=== PATIENT | female | born 1970 | race American Indian/Alaskan Native ===

== ENCOUNTER 2020-10-12 09:26 | Inpatient (IN) | payer BC, MEDICARE ==
--- NOTE | 2020-10-12 09:36 | Emergency Department Report ---
ED Neuro Deficit HPI - General Chief Complaint: Neuro Symptoms/Deficit Stated Complaint: POSS STROKE Time Seen by Provider: 10/12/20 09:30 Source: patient, EMS - History of Present Illness Initial Comments: Patient is 49 years old female with history of CVA with left-sided weakness in 2016. Patient also had history of atrial fibrillation on Eliquis. Patient brought to the emergency room via EMS from home as a code stroke. Patient stated that she woke up normally this morning and her baseline. Patient stated that around 8:30 AM she all of a sudden felt left upper and lower extremity weakness. Patient stated that she is unable to move her left upper extremity and lower extremity. Patient denied any speech problem. Patient stated that her symptoms the same with no improvement. Patient stated that she had stroke in 2016 and she was in a wheelchair for a while and then she was using a walker and now she just using a cane. Upon arrival to the ER stroke alert initiated and patient immediately moved to CT scan for stat CT head without contrast. Stroke telemetry neurology immediately consulted. -: Sudden Location: right arm, left leg Presenting Symptoms: Present: Weak/Paralyzed One Side History of same: Yes Place: home Context: sudden onset Associated Symptoms: denies other symptoms Treatments Prior to Arrival: none - Related Data Allergies/Adverse Reactions: Allergies Allergy/AdvReac Type Severity Reaction Status Date / Time erythromycin base Allergy Anaphylaxis Verified 10/12/20 10:12 Latex, Natural Rubber Allergy Hives Verified 10/12/20 10:12 ED Review of Systems ROS: Stated complaint: POSS STROKE Other details as noted in HPI Comment: All other systems reviewed and negative Constitutional: denies: chills, fever Respiratory: denies: cough, shortness of breath Cardiovascular: denies: chest pain, palpitations Gastrointestinal: denies: abdominal pain, nausea, vomiting Genitourinary: denies: urgency Neurological: weakness, numbness. denies: headache ED Neuro Physical Exam - General Limitations: No Limitations General appearance: alert, in no apparent distress Suspected Stroke: Yes - Head Head exam: Present: atraumatic, normocephalic, normal inspection - Eye Eye exam: Present: normal appearance, PERRL - ENT ENT exam: Present: normal exam, normal orophraynx, mucous membranes moist - Neck Neck exam: Present: normal inspection, full ROM. Absent: tenderness, meningismus - Respiratory Respiratory exam: Present: normal lung sounds bilaterally - Cardiovascular Cardiovascular Exam: Present: bradycardia - GI/Abdominal GI/Abdominal exam: Present: soft, normal bowel sounds. Absent: distended, tenderness, guarding, rebound, rigid, organomegaly, mass, bruit, pulsatile mass - Extremities Exam Extremities exam: Present: normal inspection, full ROM. Absent: tenderness - Back Exam Back exam: Present: normal inspection, full ROM. Absent: CVA tenderness (R), CVA tenderness (L) - Neurological Exam Neurological exam: Present: alert, oriented X3, motor sensory deficit - NIHSS Assessment Interval: Baseline 1a. Level of Consciousness: alert/keenly responsive 1b. LOC Questions: answers both correctly 1c. LOC Commands: performs tasks correctly 2. Best Gaze: normal 3. Visual: no visual loss 4. Facial Palsy: normal symmetrical movement 5b. Motor Arm Right: no drift 5a. Motor Arm Left: no gravity effort 6a. Motor Leg Left: no gravity effort 6b. Motor Leg Right: no drift 7. Limb Ataxia: absent 8. Sensory: normal 9. Best Language: no aphasia 10. Dysarthria: normal 11. Extinction/Inattention: no abnormality Total Score: 6 Stroke Severity: Moderate Stroke - Psychiatric Psychiatric exam: Present: normal mood - Skin Skin exam: Present: warm, intact, normal color ED Course Vital Signs 10/12/20 10/12/20 09:37 10:06 Temperature 98.9 F 98.9 F Pulse Rate 89 88 Respiratory 19 19 Rate Blood Pressure 142/88 142/79 [Right] O2 Sat by Pulse 97 97 Oximetry - Lab Data Result diagrams: 10/12/20 10:16 10/12/20 10:16 Lab Results 10/12/20 10/12/20 10/12/20 Range/Units 10:16 10:16 10:16 WBC 5.0 (4.5-11.0) K/mm3 RBC 4.37 (3.65-5.03) M/mm3 Hgb 12.2 (10.1-14.3) gm/dl Hct 36.6 (30.3-42.9) % MCV 84 (79-97) fl MCH 28 (28-32) pg MCHC 33 (30-34) % RDW 14.0 (13.2-15.2) % Plt Count 425 (140-440) K/mm3 PT 13.9 (12.2-14.9) Sec. INR 1.01 (0.87-1.13) APTT 22.8 L (24.2-36.6) Sec. Thrombin Time 20.0 H (15.1-19.6) Sec. Sodium 140 (137-145) mmol/L Potassium 3.8 (3.6-5.0) mmol/L Chloride 102.9 (98-107) mmol/L Carbon Dioxide 30 (22-30) mmol/L Anion Gap 11 mmol/L BUN 7 (7-17) mg/dL Creatinine 0.7 (0.6-1.2) mg/dL Estimated GFR > 60 ml/min BUN/Creatinine Ratio 10 % Glucose 90 (65-100) mg/dL Calcium 9.5 (8.4-10.2) mg/dL Total Bilirubin (0.1-1.2) mg/dL Direct Bilirubin (0-0.2) mg/dL Indirect Bilirubin mg/dL AST (5-40) units/L ALT (7-56) units/L Alkaline Phosphatase (35-129) units/L Total Creatine Kinase 33 (30-135) units/L CK-MB (CK-2) 1.7 (0.0-4.0) ng/mL CK-MB (CK-2) Rel Index 5.1 H (0-4) Troponin T < 0.010 (0.00-0.029) ng/mL Total Protein (6.3-8.2) g/dL Albumin (3.9-5) g/dL Albumin/Globulin Ratio % 08/18/21 Range/Units 10:16 WBC (4.5-11.0) K/mm3 RBC (3.65-5.03) M/mm3 Hgb (10.1-14.3) gm/dl Hct (30.3-42.9) % MCV (79-97) fl MCH (28-32) pg MCHC (30-34) % RDW (13.2-15.2) % Plt Count (140-440) K/mm3 PT (12.2-14.9) Sec. INR (0.87-1.13) APTT (24.2-36.6) Sec. Thrombin Time (15.1-19.6) Sec. Sodium (137-145) mmol/L Potassium (3.6-5.0) mmol/L Chloride (98-107) mmol/L Carbon Dioxide (22-30) mmol/L Anion Gap mmol/L BUN (7-17) mg/dL Creatinine (0.6-1.2) mg/dL Estimated GFR ml/min BUN/Creatinine Ratio % Glucose (65-100) mg/dL Calcium (8.4-10.2) mg/dL Total Bilirubin 0.90 (0.1-1.2) mg/dL Direct Bilirubin 0.2 (0-0.2) mg/dL Indirect Bilirubin 0.7 mg/dL AST 23 (5-40) units/L ALT 39 (7-56) units/L Alkaline Phosphatase 71 (35-129) units/L Total Creatine Kinase (30-135) units/L CK-MB (CK-2) (0.0-4.0) ng/mL CK-MB (CK-2) Rel Index (0-4) Troponin T (0.00-0.029) ng/mL Total Protein 6.5 (6.3-8.2) g/dL Albumin 3.2 L (3.9-5) g/dL Albumin/Globulin Ratio 1.0 % - EKG Data -: EKG Interpreted by Mt EKG shows normal: sinus rhythm Rate: bradycardia Interpretation: no acute changes - Radiology Data Radiology results: report reviewed - Medical Decision Making Patient is 49 years old female with history of CVA with left-sided weakness in 2016. Patient also had history of atrial fibrillation on Eliquis. Patient brought to the emergency room via EMS from home as a code stroke. Patient stated that she woke up normally this morning and her baseline. Patient stated that around 8:30 AM she all of a sudden felt left upper and lower extremity weakness. Patient stated that she is unable to move her left upper extremity and lower extremity. Patient denied any speech problem. Patient stated that h er symptoms the same with no improvement. Patient stated that she had stroke in 2016 and she was in a wheelchair for a while and then she was using a walker and now she just using a cane. Upon arrival to the ER stroke alert initiated and patient immediately moved to CT scan for stat CT head without contrast. Stroke telemetry neurology immediately consulted. Patient examined by Dr. Alejandre, telemetry neurologist. He indicated that patient is not a TPA candidate. CTA neck and brain showed no evidence of large vessels occlusion to indicate thrombectomy. He advised to admit the patient to hospital for stroke work-up. I discussed the patient with Dr. Martinez, he agreed to admit the patient to medical service for further management. Critical Care Time: Yes Critical care time in (mins) excluding proc time.: 30 Critical care attestation.: If time is entered above; I have spent that time in minutes in the direct care of this critically ill patient, excluding procedure time. ED Disposition Clinical Impression: Acute CVA (cerebrovascular accident) Disposition: 02 SHORT TERM HOSPITAL Is pt being admited?: No Condition: Stable
--- NOTE | 2020-10-12 09:47 | Cat Scan Report ---
CT HEAD WITHOUT CONTRAST INDICATION / CLINICAL INFORMATION: CODE STROKE CALL [phone] . TECHNIQUE: Axial imaging performed from the skull apex through the skull base without the use of cont rast. Sagittal and coronal reformatted images. All CT scans at this location are performed using CT dose reduction for ALARA by means of automated exposure control. COMPARISON: None available. FINDINGS: CEREBRAL PARENCHYMA: No significant abnormality. No acute territorial infarct. HEMORRHAGE: None. EXTRA-AXIAL SPACES: Normal in size and morphology for the patient's age. VENTRICULAR SYSTEM: Normal in size and morphology for the patient's age. MIDLINE SHIFT OR HERNIATION: None. CEREBELLUM / BRAINSTEM: No significant abnormality. CALVARIUM: No significant abnormality. ORBITS: Normal as visualized. PARANASAL SINUSES / MASTOID AIR CELLS: Normal as visualized. SOFT TISSUES of HEAD: No significant abnormality. ADDITIONAL FINDINGS: None. IMPRESSION: No acute intracranial abnormality. CODE STROKE: Time of Communication (LEASING CONSULTANT/CDT): 0842 hours Licensed Practitioner Receiving Report: Dr. Rodriguez Signer Name: Nirav Patterson Jr, MD Signed: 10/12/2020 9:43 AM Workstation Name: [id number]
--- NOTE | 2020-10-12 10:02 | Consultation ---
Physical Examination - Vital Signs Vital Signs: Vital Signs Temp Pulse Resp BP Pulse Ox 98.9 F 89 19 142/88 97 10/12/20 09:37 10/12/20 09:37 10/12/20 09:37 10/12/20 09:37 10/12/20 09:37 Assessment and Plan [facility] Consult Note # Demographics Consult Type: Acute Stroke Level 1 (0-4.5 hrs) Patient Location: Emergency Room First Name: Mayte Last Name: Michael Date of : 1970 Age: 49 Gender: Female Time of Initial Page (): 10/12/2020, 09:31 Time of Return Call (): 10/12/2020, 09:32 # HPI History: 49F reportedly ok when she woke, then not able to feel left side, left numbness and weakness noted. Prior stroke also had left side weakness but she recovered significantly with rehab reportedly. Patient says she has had nightly headache the past couple of nights. COVID diagnosis 2d ago reportedly. # Scores Time of exam and NIHSS (): 10/12/2020, 09:59 Level of Consciousness 1a: [0] = Alert; keenly responsive LOC Questions 1b: [0] = Answers both questions correctly LOC Commands 1c: [0] = Performs both tasks correctly Best Gaze 2: [0] = Normal Visual 3: [0] = No visual loss Facial Palsy 4: [0] = Normal symmetrical movements Motor Arm Left 5a: [3] = No effort against gravity Motor Arm Right 5b: [0] = No drift Motor Leg Left 6a: [3] = No effort against gravity Motor Leg Right 6b: [0] = No drift Limb Ataxia 7: [0] = Absent Sensory 8: [0] = Normal Best Language 9: [0] = No aphasia Dysarthria 10: [0] = Normal Extinction and Inattention 11: [0] = No abnormality NIHSS Total: 6 # PMH-FH-SH Past Medical History: A-fib seizure stroke Medications: NOAC eliquis. # Data Head CT: no bleed preliminarily reviewed by me, please refer to radiology read for official reading CTA Head: no large vessel occlusion preliminarily reviewed by me, please refer to radiology read for official reading # Assessment Impression: Ischemic Stroke (Acute) vs mimic, such as neurologic symptoms associated with COVID, migraine, other. Conversion disorder is a consideration. # Plan Thrombolytic/Intervention: NOT IV Thrombolysis or IA Intervention candidate Thrombolytic Exclusion (< 3 hour window): actively on NOAC Intraarterial Exclusion: no large vessel occlusion (LVO) Imaging: (urgency: routine): MRI Brain without contrast # Logistics Telemedicine: Interactive 2 way audio and visual telecommunication technology was utilized during this visit
--- NOTE | 2020-10-12 10:16 | Cat Scan Report ---
CTA NECK WITH CONTRAST HISTORY: Stroke COMPARISON: None. TECHNIQUE: Routine CTA of the neck is performed. 3-D/MIP reformats were postprocessed. Percentage st enosis is determined by direct quantitative measurements of diseased internal carotid artery diameter compared with normal distal internal carotid artery reference segments or by criteria similar to LUKE CET where applicable. All CT scans at this location are performed using CT dose reduction for ALARA b y means of automated exposure control. CONTRAST: 100 ml of Omnipaque 350 FINDINGS: Aortic arch: No significant abnormality. Cervical vertebral arteries: No significant abnormality. Common carotid arteries: No significant abnormality. Cervical internal carotid arteries: No significant abnormality. Mild tortuosity of the distal ICAs bi laterally is noted. Additional findings: Patchy bilateral subpleural groundglass lung opacities are identified at the bertha g apices. IMPRESSION: Unremarkable CTA of the neck. No evidence for large vessel occlusion or stenosis. Patchy lung infiltrates are identified at the lung apices concerning for atypical pneumonia or viral infection. CTA HEAD WITH CONTRAST HISTORY: Stroke COMPARISON: None. TECHNIQUE: Routine non-contrast CT Head, CTA of the head and post-contrast CT Head are performed. 3-D /MIP reformats postprocessed. All CT scans at this location are performed using CT dose reduction for ALARA by means of automated e xposure control CONTRAST: 100 ml of Omnipaque 350 FINDINGS: CTA Head: Intracranial vertebral arteries: No significant abnormality. Basilar artery: No significant abnormality. Posterior cerebral arteries: No significant abnormality. Intracranial internal carotid arteries: No significant abnormality. Anterior cerebral arteries: No significant abnormality. Middle cerebral arteries: No significant abnormality. Dural venous sinuses:Not optimally opacified. No significant abnormality. Additional findings: Moderate bilateral posterior communicating arteries are noted. IMPRESSION: No evidence for large vessel occlusion, stenosis or aneurysm. Signer Name: Nirav Patterson Jr, MD Signed: 10/12/2020 10:12 AM Workstation Name: [id number]
--- NOTE | 2020-10-12 10:21 | XRay Report ---
CHEST 1 VIEW 10/12/2020 9:16 AM INDICATION / CLINICAL INFORMATION: STROKE/COVID. COMPARISON: None available. FINDINGS: SUPPORT DEVICES: None. HEART / MEDIASTINUM: No significant abnormality. LUNGS / PLEURA: There are mild patchy bilateral pulmonary opacities. No pneumothorax. ADDITIONAL FINDINGS: No significant additional findings. IMPRESSION: 1. Mild patchy bilateral pulmonary opacities likely indicating viral pneumonia. Signer Name: Abdifatah Novak MD Signed: 10/12/2020 10:17 AM Workstation Name: [id number]
[2020-10-12 10:26] LABS: Hematocrit 36.6 % (30.3-42.9); Hemoglobin 12.2 gm/dl (10.1-14.3); Mean Corpuscular HGB Conc 33 % (30-34); Mean Corpuscular Volume 84 fl (79-97); Platelet Count 425 K/mm3 (140-440); Red Blood Count 4.37 M/mm3 (3.65-5.03)
[2020-10-12 10:44] LABS: Creatine Kinase MB 1.7 ng/mL (0.0-4.0)
[2020-10-12 10:46] LABS: Albumin 3.2 g/dL (3.9-5); Bilirubin,Direct 0.2 mg/dL (0-0.2); Blood Urea Nitrogen 7 mg/dL (7-17); Calcium 9.5 mg/dL (8.4-10.2); Hemolysis Index 4
[2020-10-12 10:48] LABS: BUN/Creatinine Ratio 10
[2020-10-12 11:00] LABS: INR 1.01 (0.87-1.13)
[2020-10-12 11:01] LABS: Partial Thromboplastin Time 22.8 Sec. (24.2-36.6)
[2020-10-12] MEDS ORDERED: ONDANSETRON 4 MG/2 ML INJ IV PRN (13:00)
[2020-10-12] MEDS ORDERED: MAGNESIUM HYDROXIDE (MOM) ORAL LIQD UDC PO PRN (13:00)
[2020-10-12] MEDS ORDERED: HYDROmorphone 1 MG/1 ML INJ IV PRN (13:00)
[2020-10-12] MEDS ORDERED: ACETAMINOPHEN 325 MG TAB PO PRN (13:00)
[2020-10-12] MEDS ORDERED: ALBUTEROL 2.5 MG/3 ML NEBU IH PRN (14:00)
[2020-10-12] MEDS ORDERED: PROMETHAZINE 25 MG RECT SUPP PR PRN (14:00)
[2020-10-12] MEDS ORDERED: oxyCODONE /ACETAMINOPHEN 5-325MG TAB PO PRN (14:00)
[2020-10-12] MEDS ORDERED: METOCLOPRAMIDE 10 MG TAB PO PRN (14:00)
--- NOTE | 2020-10-12 15:12 | Vascular Lab Report ---
DUPLEX DOPPLER ULTRASOUND CAROTID, BILATERAL INDICATION / CLINICAL INFORMATION: Stroke. COMPARISON: CTA neck 10/12/2020. FINDINGS: RIGHT CAROTID: No significant atherosclerotic disease. - PLAQUE ESTIMATE (%): < 50% - CCA velocity: 87 cm/sec. - ICA peak systolic velocity: 87 cm/sec. - ICA/CCA PSV Ratio: Less than 2. Right Vertebral Artery: Antegrade flow. LEFT CAROTID: No significant atherosclerotic disease. - PLAQUE ESTIMATE (%): < 50% - CCA velocity: 81 cm/sec. - ICA peak systolic velocity: 72 cm/sec. - ICA/CCA PSV Ratio: Less than 2. Left Vertebral Artery: Antegrade flow. IMPRESSION: 1. Right Internal Carotid Artery: Normal. No stenosis. 2. Left Internal Carotid Artery: Normal. No stenosis. Velocity criteria are extrapolated from diameter data as defined by the Society of Radiologists in [facility] Consensus Conference, Radiology 2003; 229;340-346. NO STENOSIS (NORMAL) - Plaque = none; ICA PSV < 125 cm/sec; ICA/CCA PSV Ratio < 2.0 <50% STENOSIS - Plaque < 50%; ICA PSV < 125 cm/sec; ICA/CCA PSV Ratio < 2.0 50-69% STENOSIS - Plaque > 50%; ICA PSV = 125-230 cm/sec; ICA/CCA PSV Ratio = 2.0-4.0 >70% BUT <100% STENOSIS - Plaque > 50%; ICA PSV > 230 cm/sec; ICA/CCA PSV Ratio > 4.0 NEAR OCCLUSION - Plaque = visible lumen; ICA PSV = high/low/none; ICA/CCA PSV Ratio = variable TOTAL OCCLUSION - Plaque = no lumen; ICA PSV = none; ICA/CCA PSV Ratio = N/A Scribed by: Abbey Cruz RDMS, RVT Scribed: 10/12/2020 1:57 PM I have reviewed the images, agree with this report, and edited this report as needed. Signer Name: Vinh Marquez MD Signed: 10/12/2020 3:07 PM Workstation Name: [id number]
--- NOTE | 2020-10-12 18:34 | History and Physical Report ---
History of Present Illness Date of admission: 10/12/20 12:39 Chief complaint: I cannot move my left side History of present illness: 49 YO Female with CVA with LHP, Atrial Fib on Therapeutic anticoagulation with Eliquis presents to ED for evaluation. Patient reports "I feel weak, left side" . Patient states that she was in her usual state of health at bedtime around 2100 hrs. Patient awoke from sleep at 0830 hrs. and was found to have new onset left arm and leg weakness. Patient states that she was unable to move her left arm and left leg. EMS was notified and upon arrival the patient was found to be in distress and found to have a neurologic deficit. A code stroke was called an d the patient was transported to [facility] for further care and evaluation of the aforementioned symptoms. The patient was seen and evaluated in the emergency department. All lab and imaging studies reviewed. The patient was found to have symptoms consistent with CVA. The patient was placed in observation status and admitted to medical floor due to increased risk of worsening symptoms. Patient initiated on CVA protocol. Patient denies fever, chills, chest pain, palpitation, adductive cough, skin rash, recent ill contacts, or known exposure to COVID-19. No prior admission for review. No medication listed at time of admission for reconciliation. Past History Past Medical History: atrial fib, stroke Past Surgical History: No surgical history, Other (Reviewed) Social history: single. denies: smoking, alcohol abuse Family history: hypertension Medications and Allergies Allergies Allergy/AdvReac Type Severity Reaction Status Date / Time erythromycin base Allergy Anaphylaxis Verified 10/12/20 10:12 Latex, Natural Rubber Allergy Hives Verified 10/12/20 10:12 Home Medications Medication Instructions Recorded Confirmed Last Taken Type Apixaban [Eliquis] 5 mg PO 10/12/20 Unknown History Folic Acid [Folvite] 10/12/20 Unknown History Gabapentin 10/12/20 Unknown History HCTZ 10/12/20 Unknown History PARoxetine [Paxil] 20 mg PO DAILY 10/12/20 10/12/20 Unknown History Topiramate [Topamax] 25 mg PO BID 10/12/20 10/12/20 Unknown History lisinopriL [Lisinopril] 20 mg PO 10/12/20 Unknown History Active Meds: Active Medications Acetaminophen (Acetaminophen 325 Mg Tab) 650 mg PO Q4H PRN PRN Reason: Pain, Mild (1-3) Albuterol (Albuterol 2.5 Mg/3 Ml Nebu) 2.5 mg IH Q3HRT PRN PRN Reason: Shortness Of Breath Aspirin (Aspirin 325 Mg Tab) 325 mg PO QDAY ALVARO Atorvastatin Calcium (Atorvastatin 40 Mg Tab) 40 mg PO QHS ALVARO Bisacodyl (Bisacodyl 10 Mg Rect Supp) 10 mg DE QDAY PRN PRN Reason: Constipation Hydromorphone HCl (Hydromorphone 1 Mg/1 Ml Inj) 0.5 mg IV Q12H PRN PRN Reason: Pain , Severe (7-10) Magnesium Hydroxide (Magnesium Hydroxide (Mom) Oral Liqd Udc) 30 ml PO Q4H PRN PRN Reason: Constipation Metoclopramide HCl (Metoclopramide 10 Mg Tab) 10 mg PO Q6H PRN PRN Reason: Nausea And Vomiting Ondansetron HCl (Ondansetron 4 Mg/2 Ml Inj) 4 mg IV Q8H PRN PRN Reason: Nausea And Vomiting Oxycodone/Acetaminophen (Oxycodone /Acetaminophen 5-325mg Tab) 1 tab PO Q12H PRN PRN Reason: Pain, Moderate (4-6) Last Admin: 10/12/20 14:08 Dose: 1 tab Documented by: Promethazine HCl (Promethazine 25 Mg Rect Supp) 25 mg DE Q6H PRN PRN Reason: Nausea And Vomiting Sodium Chloride (Sodium Chloride 0.9% 10 Ml Flush Syringe) 10 ml IV PRN PRN PRN Reason: LINE FLUSH Review of Systems Constitutional: no weight loss, no weight gain, no fever, no chills Ears, nose, mouth and throat: no ear pain, no ear discharge, no tinnitis, no decreased hearing Breasts: no change in shape, no swelling Cardiovascular: no chest pain, no orthopnea, no palpitations, no edema, no syncope Respiratory: no cough, no excessive sputum, no shortness of breath, no dyspnea on exertion Gastrointestinal: no abdominal pain, no vomiting, no constipation, no hematemesis Genitourinary Female: no pelvic pain, no flank pain, no dysuria, no urinary frequency, no urgency Rectal: no pain, no incontinence, no bleeding Musculoskeletal: no neck stiffness, no neck pain Integumentary: no rash, no pruritis, no sores, no wounds, no jaundice Neurological: weakness, balance difficulties, gait dysfunction, motor disturbance, no numbness, no seizures, no syncope, no convulsions Psychiatric: no anxiety, no memory loss, no change in sleep habits, no insomnia, no change in libido, no suicidal ideation Endocrine: no cold intolerance, no heat intolerance, no polyphagia, no excessive thirst, no polydipsia, no polyuria, no excessive sweating Hematologic/Lymphatic: no easy bruising, no easy bleeding, no lymphadenopathy, no lymphedema Allergic/Immunologic: no urticaria, no allergic rhinitis, no persistent infections, no anaphylaxis Exam - Constitutional Vitals: Temp Pulse Resp BP Pulse Ox 98.4 F 65 19 148/88 99 10/12/20 13:21 10/12/20 14:31 10/12/20 14:31 10/12/20 14:31 10/12/20 14:31 General appearance: Present: mild distress - EENT Eyes: Present: PERRL ENT: hearing intact, clear oral mucosa - Neck Neck: Present: supple, normal ROM - Respiratory Respiratory effort: normal Respiratory: bilateral: CTA - Cardiovascular Heart Sounds: Present: S1 & S2. Absent: rub, click - Extremities Extremities: pulses symmetrical, No edema Peripheral Pulses: within normal limits - Abdominal General gastrointestinal: Present: soft, non-tender, non-distended, normal bowel sounds Female genitourinary: Present: normal - Integumentary Integumentary: Present: clear, warm, dry - Musculoskeletal Musculoskeletal: left sided weakness - Psychiatric Psychiatric: appropriate mood/affect, intact judgment & insight - Neurologic Neurologic: CNII-XII intact, focal deficits, moves all extremities, no gait normal HEART Score - HEART Score Troponin: Troponin T < 0.010 ng/mL (0.00-0.029) 10/12/20 10:16 Results - Labs CBC & Chem 7: 10/12/20 10:16 10/12/20 10:16 Labs: Abnormal lab results 10/12/20 10/12/20 10/12/20 Range/Units 10:16 10:16 10:16 APTT 22.8 L (24.2-36.6) Sec. Thrombin Time 20.0 H (15.1-19.6) Sec. CK-MB (CK-2) Rel Index 5.1 H (0-4) Albumin 3.2 L (3.9-5) g/dL Assessment and Plan - Patient Problems (1) Acute CVA (cerebrovascular accident) Current Visit: Yes Status: Acute Plan to address problem: CVA protocol: CT head, neuro check, seizure precaution, aspiration precautions, physical therapy consulted, Occupational Therapy consulted, speech therapy consulted, carotid Doppler, echocardiogram, telemetry neurology consulted, antiplatelet therapy, lipid panel, statin therapy. (2) Atrial fibrillation Current Visit: Yes Status: Acute Qualifiers: Atrial fibrillation type: longstanding persistent Qualified Code(s): I48.11 - Longstanding persistent atrial fibrillation Plan to address problem: Continue therapeutic anticoagulation, supportive care. (3) DVT prophylaxis Current Visit: Yes Status: Acute Plan to address problem: SCD to bilateral lower extremities while in bed, continue therapeutic anticoagulation.
[2020-10-12 18:55] LABS: RBC Morphology Normal; Total Cells Counted 100
[2020-10-12] MEDS: TOPIRAMATE TAB 25 MG TAB PO SCH (21:42)
[2020-10-12] MEDS: APIXABAN 5 MG TAB PO SCH (21:42)
--- NOTE | 2020-10-13 09:52 | Electrocardiograph Report ---
[facility] Test Date: 2020-10-12 Test Time: 10:50:51 Pat Name: THOMAS TURCIOS Department: ED Room: [facility] Gender: F Barrel Planer: [id number] : 1970 Requested By: WILBUR JJ Order Number: [id number] Reading MD: Clemente Montalvo Measurements Intervals [place] Rate: 49 P: 52 IN: 146 QRS: 46 QRSD: 88 T: 29 QT: 489 QTc: 441 Interpretive Statements Sinus bradycardia Consider left ventricular hypertrophy NSSTT'S No previous ECG available for comparison Electronically Signed On 10-13-2020 9:52:36 EDT by Clemente Montalvo
[2020-10-13] MEDS ORDERED: NON-FORMULARY EACH (Apixaban 5 MG Tablet) PO SCH (10:00)
[2020-10-13] MEDS: APIXABAN 5 MG TAB PO SCH ×2 (10:02→22:06)
[2020-10-13] MEDS: ASPIRIN 325 MG TAB PO SCH (10:02)
[2020-10-13] MEDS: PARoxetine 20 MG TAB PO SCH (10:24)
[2020-10-13] MEDS: TOPIRAMATE TAB 25 MG TAB PO SCH ×2 (11:21→22:07)
--- NOTE | 2020-10-13 14:16 | Progress Note ---
Assessment and Plan Assessment and plan: --COVID-19 positive Current Visit: Yes Status: Acute Contact and droplet isolation Inflammatory markers Home O2 evaluation ID consult Patient has no hypoxia No indication for remdesivir or steroids Closely monitor -- Acute CVA (cerebrovascular accident) left-sided hemiparesis Current Visit: Yes Status: Acute Not a candidate for TPA Aspirin and statin, extensive neuro work-up reviewed as below Physical therapy, Occupational Therapy, speech therapy Rehabilitation Neurology consulted Neuro work-up so far: CT head without contrast; no acute intracranial abnormality noted CTA head; no evidence of large vessel occlusion stenosis or aneurysm MRI brain; numerous scattered punctate foci of acute infarctions predominantly throughout the right MCA territory right MCA territory CTA neck; unremarkable CTA neck no evidence of large vessel occlusion or stenosis patchy lung infiltrates concerning for atypical pneumonia Carotid Doppler; no hemodynamically significant stenosis Echocardiogram; LV EF: 65 to 70%, No left ventricular thrombus, No VSD, No PFO 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 fib, already on Eliquis Cardiology, neurology following --History of CVA in 2015; with residual left-sided weakness Current Visit: Yes Status: Chronic Continue supportive care, PT OT rehab --Hypertension Current Visit: Yes Status: Chronic Moderate control, continue current antihypertensives and as needed medications --Peripheral neuropathy Current Visit: Yes Status: Chronic Gabapentin and supportive care --History of atrial fibrillation Current Visit: Yes Status: Acute Continue therapeutic anticoagulation, beta-blockers supportive care. --DVT prophylaxis Current Visit: Yes Status: Acute SCD to bilateral lower extremities while in bed, Continue Eliquis Closely monitor patient and adjust management as needed Consults and recommendations noted and appreciated We will closely monitor the patient and adjust management as needed 10/13/2020; Acute CVA with left-sided hemiparesis Positive COVID-19 Continue management per protocols Patient is afebrile, already on Eliquis Follow neuro, ID, cardiology evaluation and recommendations History Interval history: I have seen and examined the patient at the bedside Patient's chart and medications reviewed Patient was admitted with left-sided weakness Stroke protocol initiated Not a candidate for TPA Extensive neuro work-up done Vital signs noted Hospitalist Physical - Constitutional Vitals: Temp Pulse Resp BP Pulse Ox 98.9 F 52 L 20 127/71 97 10/12/20 18:38 10/13/20 06:01 10/13/20 06:01 10/13/20 06:01 10/13/20 06:01 General appearance: Present: mild distress, well-nourished, other (Alert and awake responding appropriately) - EENT Eyes: Present: PERRL, EOM intact - Neck Neck: Present: supple, normal ROM - Respiratory Respiratory effort: normal Respiratory: bilateral: diminished, negative: rales, rhonchi, wheezing - Cardiovascular Rhythm: regular Heart Sounds: Present: S1 & S2 - Extremities Extremities: no ischemia, No edema - Abdominal General gastrointestinal: soft, non-tender, non-distended, normal bowel sounds - Integumentary Integumentary: Present: clear, warm - Psychiatric Psychiatric: appropriate mood/affect, cooperative - Neurologic Neurologic: other (Left-sided weakness) HEART Score - HEART Score Troponin: Troponin T < 0.010 ng/mL (0.00-0.029) 10/12/20 10:16 Results - Labs CBC & Chem 7: 10/12/20 10:16 10/12/20 10:16 Labs: Laboratory Last Values WBC 5.0 K/mm3 (4.5-11.0) 10/12/20 10:16 RBC 4.37 M/mm3 (3.65-5.03) 10/12/20 10:16 Hgb 12.2 gm/dl (10.1-14.3) 10/12/20 10:16 Hct 36.6 % (30.3-42.9) 10/12/20 10:16 MCV 84 fl (79-97) 10/12/20 10:16 MCH 28 pg (28-32) 10/12/20 10:16 MCHC 33 % (30-34) 10/12/20 10:16 RDW 14.0 % (13.2-15.2) 10/12/20 10:16 Plt Count 425 K/mm3 (140-440) 10/12/20 10:16 Add Manual Diff Complete 10/12/20 10:16 Total Counted 100 10/12/20 10:16 Seg Neuts % (Manual) 66.0 % (40.0-70.0) 10/12/20 10:16 Lymphocytes % (Manual) 21.0 % (13.4-35.0) 10/12/20 10:16 Monocytes % (Manual) 10.0 % (0.0-7.3) H 10/12/20 10:16 Eosinophils % (Manual) 2.0 % (0.0-4.3) 10/12/20 10:16 Basophils % (Manual) 1.0 % (0.0-1.8) 10/12/20 10:16 Nucleated RBC % Not Reportable 10/12/20 10:16 Seg Neutrophils # Man 3.3 K/mm3 (1.8-7.7) 10/12/20 10:16 Band Neutrophils # 0.0 K/mm3 10/12/20 10:16 Lymphocytes # (Manual) 1.1 K/mm3 (1.2-5.4) L 10/12/20 10:16 Abs React Lymphs (Man) 0.0 K/mm3 10/12/20 10:16 Monocytes # (Manual) 0.5 K/mm3 (0.0-0.8) 10/12/20 10:16 Eosinophils # (Manual) 0.1 K/mm3 (0.0-0.4) 10/12/20 10:16 Basophils # (Manual) 0.1 K/mm3 (0.0-0.1) 10/12/20 10:16 Metamyelocytes # 0.0 K/mm3 10/12/20 10:16 Myelocytes # 0.0 K/mm3 10/12/20 10:16 Promyelocytes # 0.0 K/mm3 10/12/20 10:16 Blast Cells # 0.0 K/mm3 10/12/20 10:16 WBC Morphology Not Reportable 10/12/20 10:16 Hypersegmented Neuts Not Reportable 10/12/20 10:16 Hyposegmented Neuts Not Reportable 10/12/20 10:16 Hypogranular Neuts Not Reportable 10/12/20 10:16 Smudge Cells Not Reportable 10/12/20 10:16 Toxic Granulation Not Reportable 10/12/20 10:16 Toxic Vacuolation Not Reportable 10/12/20 10:16 Dohle Bodies Not Reportable 10/12/20 10:16 Pelger-Huet Anomaly Not Reportable 10/12/20 10:16 Rafita Rods Not Reportable 10/12/20 10:16 Platelet Estimate Not Reportable 10/12/20 10:16 Clumped Platelets Not Reportable 10/12/20 10:16 Plt Clumps, EDTA Not Reportable 10/12/20 10:16 Large Platelets Not Reportable 10/12/20 10:16 Giant Platelets Not Reportable 10/12/20 10:16 Platelet Satelliting Not Reportable 10/12/20 10:16 Plt Morphology Comment Not Reportable 10/12/20 10:16 RBC Morphology Normal 10/12/20 10:16 Dimorphic RBCs Not Reportable 10/12/20 10:16 Polychromasia Not Reportable 10/12/20 10:16 Hypochromasia Not Reportable 10/12/20 10:16 Poikilocytosis Not Reportable 10/12/20 10:16 Anisocytosis Not Reportable 10/12/20 10:16 Microcytosis Not Reportable 10/12/20 10:16 Macrocytosis Not Reportable 10/12/20 10:16 Spherocytes Not Reportable 10/12/20 10:16 Pappenheimer Bodies Not Reportable 10/12/20 10:16 Sickle Cells Not Reportable 10/12/20 10:16 Target Cells Not Reportable 10/12/20 10:16 Tear Drop Cells Not Reportable 10/12/20 10:16 Ovalocytes Not Reportable 10/12/20 10:16 Helmet Cells Not Reportable 10/12/20 10:[address] Bodies Not Reportable 10/12/20 10:16 Vancleave Rings Not Reportable 10/12/20 10:16 Sinai Cells Not Reportable 10/12/20 10:16 Bite Cells Not Reportable 10/12/20 10:16 Crenated Cell Not Reportable 10/12/20 10:16 Elliptocytes Not Reportable 10/12/20 10:16 Acanthocytes (Spur) Not Reportable 10/12/20 10:16 Rouleaux Not Reportable 10/12/20 10:16 Hemoglobin C Crystals Not Reportable 10/12/20 10:16 Schistocytes Not Reportable 10/12/20 10:16 Malaria parasites Not Reportable 10/12/20 10:16 Ernie Bodies Not Reportable 10/12/20 10:16 Hem Pathologist Commnt No 10/12/20 10:16 PT 13.9 Sec. (12.2-14.9) 10/12/20 10:16 INR 1.01 (0.87-1.13) 10/12/20 10:16 APTT 22.8 Sec. (24.2-36.6) L 10/12/20 10:16 Thrombin Time 20.0 Sec. (15.1-19.6) H 10/12/20 10:16 Sodium 140 mmol/L (137-145) 10/12/20 10:16 Potassium 3.8 mmol/L (3.6-5.0) 10/12/20 10:16 Chloride 102.9 mmol/L (98-107) 10/12/20 10:16 Carbon Dioxide 30 mmol/L (22-30) 10/12/20 10:16 Anion Gap 11 mmol/L 10/12/20 10:16 BUN 7 mg/dL (7-17) 10/12/20 10:16 Creatinine 0.7 mg/dL (0.6-1.2) 10/12/20 10:16 Estimated GFR > 60 ml/min 10/12/20 10:16 BUN/Creatinine Ratio 10 % 10/12/20 10:16 Glucose 90 mg/dL (65-100) 10/12/20 10:16 Calcium 9.5 mg/dL (8.4-10.2) 10/12/20 10:16 Total Bilirubin 0.90 mg/dL (0.1-1.2) 10/12/20 10:16 Direct Bilirubin 0.2 mg/dL (0-0.2) 10/12/20 10:16 Indirect Bilirubin 0.7 mg/dL 10/12/20 10:16 AST 23 units/L (5-40) 10/12/20 10:16 ALT 39 units/L (7-56) 10/12/20 10:16 Alkaline Phosphatase 71 units/L (35-129) 10/12/20 10:16 Total Creatine Kinase 33 units/L (30-135) 10/12/20 10:16 CK-MB (CK-2) 1.7 ng/mL (0.0-4.0) 10/12/20 10:16 CK-MB (CK-2) Rel Index 5.1 (0-4) H 10/12/20 10:16 Troponin T < 0.010 ng/mL (0.00-0.029) 10/12/20 10:16 Total Protein 6.5 g/dL (6.3-8.2) 10/12/20 10:16 Albumin 3.2 g/dL (3.9-5) L 10/12/20 10:16 Albumin/Globulin Ratio 1.0 % 10/12/20 10:16 Active Medications - Current Medications Current Medications: Generic Name Dose Route Start Last Admin Trade Name Freq PRN Reason Stop Dose Admin Acetaminophen 650 mg 10/12/20 13:00 Acetaminophen 325 Mg Tab PO Q4H PRN Pain, Mild (1-3) Albuterol 2.5 mg 10/12/20 14:00 Albuterol 2.5 Mg/3 Ml Nebu IH Q3HRT PRN Shortness Of Breath Apixaban 5 mg 10/12/20 22:00 10/13/20 10:02 Apixaban 5 Mg Tab PO 5 mg Q12HR ALVARO Administration Aspirin 325 mg 10/13/20 10:00 10/13/20 10:02 Aspirin 325 Mg Tab PO 325 mg QDAY ALVARO Administration Atorvastatin Calcium 40 mg 10/12/20 22:00 10/12/20 21:41 Atorvastatin 40 Mg Tab PO Not Given QHS ALVARO Bisacodyl 10 mg 10/12/20 14:00 Bisacodyl 10 Mg Rect Supp NM QDAY PRN Constipation Hydromorphone HCl 0.5 mg 10/12/20 13:00 Hydromorphone 1 Mg/1 Ml Inj IV Q12H PRN Pain , Severe (7-10) Magnesium Hydroxide 30 ml 10/12/20 13:00 Magnesium Hydroxide (Mom) Oral Liqd Udc PO Q4H PRN Constipation Metoclopramide HCl 10 mg 10/12/20 14:00 Metoclopramide 10 Mg Tab PO Q6H PRN Nausea And Vomiting Ondansetron HCl 4 mg 10/12/20 13:00 Ondansetron 4 Mg/2 Ml Inj IV Q8H PRN Nausea And Vomiting Oxycodone/Acetaminophen 1 tab 10/12/20 14:00 10/12/20 14:08 Oxycodone /Acetaminophen 5-325mg Tab PO 1 tab Q12H PRN Administration Pain, Moderate (4-6) Paroxetine HCl 20 mg 10/13/20 10:00 10/13/20 10:24 Paroxetine 20 Mg Tab PO 20 mg DAILY ALVARO Administration Promethazine HCl 25 mg 10/12/20 14:00 Promethazine 25 Mg Rect Supp NM Q6H PRN Nausea And Vomiting Sodium Chloride 10 ml 10/12/20 14:40 Sodium Chloride 0.9% 10 Ml Flush Syringe IV PRN PRN LINE FLUSH Topiramate 25 mg 10/12/20 22:00 10/13/20 11:21 Topiramate Tab 25 Mg Tab PO 25 mg BID ALVARO Administration
[2020-10-13 15:29] LABS: Chol/HDL Ratio 4.1 %
--- NOTE | 2020-10-13 17:40 | Magnetic Resonance Report ---
MR brain wo con INDICATION / CLINICAL INFORMATION: Strokelike symptoms/history of A. fib/rule out CVA. TECHNIQUE: Multiplanar, multisequence MR images of the brain were obtained. COMPARISON: October 12, 2020 FINDINGS: INTRACRANIAL: Scattered foci of restricted diffusion predominantly in the cortex of the right frontal lobe, right parietal lobe, right lateral temporal lobe, and in the border zone of the right occipita l/temporal lobe. No hemorrhage. Ventricular caliber is normal. No extra-axial collection. No mass. N o herniation. Major intracranial vascular flow voids are preserved. ORBITS: No significant abnormality of visualized orbits. SINUSES / MASTOIDS: No significant abnormality of visualized sinuses and mastoid air cells. ADDITIONAL FINDINGS: None. IMPRESSION: 1. Numerous scattered punctate foci of acute infarctions predominantly throughout the right MCA maida tory. Signer Name: Alex Carlson MD Signed: 10/13/2020 5:35 PM Workstation Name: [id number]
[2020-10-14] MEDS ORDERED: hydrALAZINE 10 MG TAB PO ONE (05:57)
--- NOTE | 2020-10-14 07:40 | Consultation ---
History of Present Illness Consult date: 10/14/20 Reason for Consult: can not move left side ,Hx of AF supposedly on Eliquis, COVID-19 Positive History of present illness: I cannot move my left side History of present illness: 49 YO Female with CVA X3 times since 2016 with LHP, Atrial Fib on Therapeutic anticoagulation with Eliquis presents to ED for evaluation. she is with compliance problem according to her for at least 4 days did not take her eliquise . Patient reports "I feel weak, left side". Patient states that she was in her usual state of health at bedtime around 2100 hrs. Patient awoke from sleep at 0830 hrs. and was found to have new onset left arm and leg weakness and impaired sensation. EMS was notified and upon arrival a code stroke was called her initial NIH was #6 , All lab and imaging studies reviewed. The patient was found to have symptoms consistent with CVA. The patient was placed in observation status and admitted to medical floor due to increased risk of worsening symptoms. Patient initiated on CVA protocol. Patient denies fever, chills, chest pain, palpitation, adductive cough, skin rash, recent ill contacts, pt. is not felt to be a candidate for tpa nor thrombectomy on admission CT brain and CTA are unremarkable MRI brain yesterday is remarkable for multiple foci of acute/subacute emboli more in right MCA distribution Past History Past Medical History: atrial fib, stroke Past Surgical History: No surgical history, Other (Reviewed) Social history: single. denies: smoking, alcohol abuse Family history: hypertension Medications and Allergies Allergies Allergy/AdvReac Type Severity Reaction Status Date / Time erythromycin base Allergy Anaphylaxis Verified 10/12/20 10:12 Latex, Natural Rubber Allergy Hives Verified 10/12/20 10:12 Home Medications Medication Instructions Recorded Confirmed Last Taken Type Apixaban [Eliquis] 5 mg PO 10/12/20 Unknown History Folic Acid [Folvite] 10/12/20 Unknown History Gabapentin 10/12/20 Unknown History HCTZ 10/12/20 Unknown History PARoxetine [Paxil] 20 mg PO DAILY 10/12/20 10/12/20 Unknown History Topiramate [Topamax] 25 mg PO BID 10/12/20 10/12/20 Unknown History lisinopriL [Lisinopril] 20 mg PO 10/12/20 Unknown History Active Meds: Active Medications Acetaminophen (Acetaminophen 325 Mg Tab) 650 mg PO Q4H PRN PRN Reason: Pain, Mild (1-3) Albuterol (Albuterol 2.5 Mg/3 Ml Nebu) 2.5 mg IH Q3HRT PRN PRN Reason: Shortness Of Breath Aspirin (Aspirin 325 Mg Tab) 325 mg PO QDAY ALVARO Atorvastatin Calcium (Atorvastatin 40 Mg Tab) 40 mg PO QHS ALVARO Bisacodyl (Bisacodyl 10 Mg Rect Supp) 10 mg AR QDAY PRN PRN Reason: Constipation Hydromorphone HCl (Hydromorphone 1 Mg/1 Ml Inj) 0.5 mg IV Q12H PRN PRN Reason: Pain , Severe (7-10) Magnesium Hydroxide (Magnesium Hydroxide (Mom) Oral Liqd Udc) 30 ml PO Q4H PRN PRN Reason: Constipation Metoclopramide HCl (Metoclopramide 10 Mg Tab) 10 mg PO Q6H PRN PRN Reason: Nausea And Vomiting Ondansetron HCl (Ondansetron 4 Mg/2 Ml Inj) 4 mg IV Q8H PRN PRN Reason: Nausea And Vomiting Oxycodone/Acetaminophen (Oxycodone /Acetaminophen 5-325mg Tab) 1 tab PO Q12H PRN PRN Reason: Pain, Moderate (4-6) Last Admin: 10/12/20 14:08 Dose: 1 tab Documented by: Promethazine HCl (Promethazine 25 Mg Rect Supp) 25 mg AR Q6H PRN PRN Reason: Nausea And Vomiting Sodium Chloride (Sodium Chloride 0.9% 10 Ml Flush Syringe) 10 ml IV PRN PRN PRN Reason: LINE FLUSH Review of Systems Constitutional: no weight loss, no weight gain, no fever, no chills Ears, nose, mouth and throat: no ear pain, no ear discharge, no tinnitis, no decreased hearing Breasts: no change in shape, no swelling Cardiovascular: no chest pain, no orthopnea, no palpitations, no edema, no syncope Respiratory: no cough, no excessive sputum, no shortness of breath, no dyspnea on exertion Gastrointestinal: no abdominal pain, no vomiting, no constipation, no hematemesis Genitourinary Female: no pelvic pain, no flank pain, no dysuria, no urinary frequency, no urgency Rectal: no pain, no incontinence, no bleeding Musculoskeletal: no neck stiffness, no neck pain Integumentary: no rash, no pruritis, no sores, no wounds, no jaundice Neurological: weakness, balance difficulties, gait dysfunction, motor disturbance, no numbness, no seizures, no syncope, no convulsions Psychiatric: no anxiety, no memory loss, no change in sleep habits, no insomnia, no change in libido, no suicidal ideation Endocrine: no cold intolerance, no heat intolerance, no polyphagia, no excessive thirst, no polydipsia, no polyuria, no excessive sweating Hematologic/Lymphatic: no easy bruising, no easy bleeding, no lymphadenopathy, no lymphedema Allergic/Immunologic: no urticaria, no allergic rhinitis, no persistent infe ctions, no anaphylaxis Past History Past Medical History: atrial fib, stroke Past Surgical History: No surgical history, Other (Reviewed) Social history: single. denies: smoking, alcohol abuse Family history: hypertension Medications and Allergies Allergies Allergy/AdvReac Type Severity Reaction Status Date / Time erythromycin base Allergy Anaphylaxis Verified 10/12/20 10:12 Latex, Natural Rubber Allergy Hives Verified 10/12/20 10:12 Home Medications Medication Instructions Recorded Confirmed Last Taken Type Apixaban [Eliquis] 5 mg PO 10/12/20 Unknown History Folic Acid [Folvite] 10/12/20 Unknown History Gabapentin 10/12/20 Unknown History HCTZ 10/12/20 Unknown History PARoxetine [Paxil] 20 mg PO DAILY 10/12/20 10/12/20 Unknown History Topiramate [Topamax] 25 mg PO BID 10/12/20 10/12/20 Unknown History lisinopriL [Lisinopril] 20 mg PO 10/12/20 Unknown History Active Meds: Active Medications Acetaminophen (Acetaminophen 325 Mg Tab) 650 mg PO Q4H PRN PRN Reason: Pain, Mild (1-3) Albuterol (Albuterol 2.5 Mg/3 Ml Nebu) 2.5 mg IH Q3HRT PRN PRN Reason: Shortness Of Breath Apixaban (Apixaban 5 Mg Tab) 5 mg PO Q12HR [facility] Last Admin: 10/13/20 22:06 Dose: 5 mg Documented by: Aspirin (Aspirin 325 Mg Tab) 325 mg PO QDAY [facility] Last Admin: 10/13/20 10:02 Dose: 325 mg Documented by: Atorvastatin Calcium (Atorvastatin 40 Mg Tab) 40 mg PO QHS [facility] Last Admin: 10/13/20 22:07 Dose: Not Given Documented by: Bisacodyl (Bisacodyl 10 Mg Rect Supp) 10 mg AR QDAY PRN PRN Reason: Constipation Hydromorphone HCl (Hydromorphone 1 Mg/1 Ml Inj) 0.5 mg IV Q12H PRN PRN Reason: Pain , Severe (7-10) Magnesium Hydroxide (Magnesium Hydroxide (Mom) Oral Liqd Udc) 30 ml PO Q4H PRN PRN Reason: Constipation Metoclopramide HCl (Metoclopramide 10 Mg Tab) 10 mg PO Q6H PRN PRN Reason: Nausea And Vomiting Ondansetron HCl (Ondansetron 4 Mg/2 Ml Inj) 4 mg IV Q8H PRN PRN Reason: Nausea And Vomiting Oxycodone/Acetaminophen (Oxycodone /Acetaminophen 5-325mg Tab) 1 tab PO Q12H PRN PRN Reason: Pain, Moderate (4-6) Last Admin: 10/12/20 14:08 Dose: 1 tab Documented by: Paroxetine HCl (Paroxetine 20 Mg Tab) 20 mg PO DAILY [facility] Last Admin: 10/13/20 10:24 Dose: 20 mg Documented by: Promethazine HCl (Promethazine 25 Mg Rect Supp) 25 mg AR Q6H PRN PRN Reason: Nausea And Vomiting Sodium Chloride (Sodium Chloride 0.9% 10 Ml Flush Syringe) 10 ml IV PRN PRN PRN Reason: LINE FLUSH Topiramate (Topiramate Tab 25 Mg Tab) 25 mg PO BID [facility] Last Admin: 10/13/20 22:07 Dose: 25 mg Documented by: Physical Examination - Vital Signs Vital Signs: Vital Signs Temp Pulse Resp BP Pulse Ox 98.9 F 89 19 142/88 97 10/12/20 09:37 10/12/20 09:37 10/12/20 09:37 10/12/20 09:37 10/12/20 09:37 - Constitutional General appearance: comfortable - EENT EENT: Present: PERRL, mucous membranes moist - Respiratory Respiratory: Present: chest non-tender, lungs clear, rhonchi - Cardiovascular Cardiovascular: Present: other (AF) Extremities: Present: no peripheral edema bilatateraly, no clubbing, cyanosis - Gastrointestinal Gastrointestinal: Present: normoactive bowel sounds - Integumentary Integumentary: Present: normal - Neurologic Cranial nerve examination: PERRL, EOMI, intact (slight left facial droop,and left facial sensory impairment) Detailed motor examination: other (left upper 3/5 left lower 2/5 ,with decrease sensation left side, reflexes1+, gait not done) - Level of Consciousness 1a. Level of Consciousness: alert/keenly responsive - LOC Questions 1b. LOC Questions: answers both correctly - LOC Command 1c. LOC Commands: performs tasks correctly - Best Gaze 2. Best Gaze: normal - Visual 3. Visual: no visual loss - Facial Palsy 4. Facial Palsy: minor paralysis - Motor Arm 5a. Motor Arm Left: some gravity effort 5b. Motor Arm Right: no drift - Motor Leg 6a. Motor Leg Left: no gravity effort 6b. Motor Leg Right: no drift - Limb Ataxia 7. Limb Ataxia: absent - Sensory 8. Sensory: mild/moderate sensory loss - Best Language 9. Best Language: no aphasia - Dysarthria 10. Dysarthria: normal - Extinction and Inattention 11. Extinction/Inattention: no abnormality - Scoring Total Score: 7 Stroke Severity: Moderate Stroke Results - Laboratory Findings CBC and BMP: 10/12/20 10:16 10/12/20 10:16 Abnormal Lab Findings: Abnormal Labs 10/12/20 10/12/20 10/12/20 10:16 10:16 10:16 Monocytes % (Manual) 10.0 H Lymphocytes # (Manual) 1.1 L APTT 22.8 L Thrombin Time 20.0 H CK-MB (CK-2) Rel Index 5.1 H Albumin HDL Cholesterol Coronavirus (PCR) 10/12/20 10/13/20 10/13/20 10:16 08:48 14:48 Monocytes % (Manual) Lymphocytes # (Manual) APTT Thrombin Time CK-MB (CK-2) Rel Index Albumin 3.2 L HDL Cholesterol 39 L Coronavirus (PCR) Positive A Assessment and Plan Assessment and Plan #this is 49 ys old femal with hx of recurrent CVA since 2016 had total X3 CVA ,she was diagnosed with AF in [place] and started on Eloquis in 2018 -she presented with acute onset of left side weakness and sensory impairment -NIH initially#6 --- today NIH#7 -CT head is unremarkable -CTA brain and neck is unremarkable -echo is with EF#65-70% -MRI brain is remarkable for multiple right emboli in MCA distribution mostly -she forgot to take Eliquis for the last 4 days at least !!! # Atrial fibrillation -Continue therapeutic anticoagulation, - supportive care. -need better compliance with medication -Add ASA 325 mg daily -Lipitor 40 mg daily -LDL#112 # COVID-19 Positive -no hypoxemia -she refused to take COVID-19 # DVT prophylaxis -SCD to bilateral lower extremities while in bed, continue therapeutic anticoagulation. PLAN 1-Eliquis as rx 2- ASA 325 mg daily 3- Lipitor 40 mg daily 4- PT/Rehabilitation 5- Comply with medication 6- she is COVID-19 Positive ,Refused vaccine before will follow as needed
--- NOTE | 2020-10-14 09:47 | Progress Note ---
Assessment and Plan Assessment and Plan Assessment and plan: --COVID-19 positive Current Visit: Yes Status: Acute Contact and droplet isolation Inflammatory markers Home O2 evaluation ID consult Patient has no hypoxia No indication for remdesivir or steroids Closely monitor -- Acute CVA (cerebrovascular accident) left-sided hemiparesis Current Visit: Yes Status: Acute Not a candidate for TPA Aspirin and statin, extensive neuro work-up reviewed as below Physical therapy, Occupational Therapy, speech therapy Rehabilitation Neurology consulted Neuro work-up so far: CT head without contrast; no acute intracranial abnormality noted CTA head; no evidence of large vessel occlusion stenosis or aneurysm MRI brain; numerous scattered punctate foci of acute infarctions predominantly throughout the right MCA territory right MCA territory CTA neck; unremarkable CTA neck no evidence of large vessel occlusion or stenosis patchy lung infiltrates concerning for atypical pneumonia Carotid Doppler; no hemodynamically significant stenosis Echocardiogram; LV EF: 65 to 70%, No left ventricular thrombus, No VSD, No PFO 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 fib, already on Eliquis Cardiology, neurology following --History of CVA in 2016; with residual left-sided weakness Current Visit: Yes Status: Chronic Continue supportive care, PT OT rehab --Hypertension Current Visit: Yes Status: Chronic Moderate control, continue current antihypertensives and as needed medications --Peripheral neuropathy Current Visit: Yes Status: Chronic Gabapentin and supportive care --History of atrial fibrillation Current Visit: Yes Status: Acute Continue therapeutic anticoagulation, beta-blockers supportive care. --DVT prophylaxis Current Visit: Yes Status: Acute SCD to bilateral lower extremities while in bed, Continue Eliquis Closely monitor patient and adjust management as needed Consults and recommendations noted and appreciated We will closely monitor the patient and adjust management as needed Subjective Date of service: 10/14/20 Interval history: 10/13/2020; Acute CVA with left-sided hemiparesis Positive COVID-19 Continue management per protocols Patient is afebrile, already on Eliquis Follow neuro, ID, cardiology evaluation and recommendations History Interval history: I have seen and examined the patient at the bedside Patient's chart and medications reviewed Patient was admitted with left-sided weakness Stroke protocol initiated Not a candidate for TPA Extensive neuro work-up done Vital signs noted Objective - Constitutional Vitals: Vital Signs - 12hr 10/13/20 10/13/20 10/13/20 22:01 22:31 23:31 Temperature Pulse Rate 75 83 66 Respiratory 26 H 24 23 Rate Blood Pressure 130/78 129/70 129/70 O2 Sat by Pulse 96 95 96 Oximetry 10/13/20 10/14/20 10/14/20 23:49 00:01 00:31 Temperature Pulse Rate Respiratory Rate Blood Pressure 129/70 106/49 129/70 O2 Sat by Pulse 96 96 97 Oximetry 10/14/20 10/14/20 10/14/20 00:51 01:01 01:11 Temperature Pulse Rate Respiratory Rate Blood Pressure 129/70 129/70 129/70 O2 Sat by Pulse 97 96 96 Oximetry 10/14/20 10/14/20 10/14/20 01:21 01:31 01:41 Temperature Pulse Rate Respiratory Rate Blood Pressure 129/70 103/60 103/60 O2 Sat by Pulse 95 96 96 Oximetry 10/14/20 10/14/20 10/14/20 01:51 02:01 02:11 Temperature Pulse Rate 72 Respiratory 27 H Rate Blood Pressure 103/60 103/60 103/60 O2 Sat by Pulse 96 95 96 Oximetry 10/14/20 10/14/20 10/14/20 02:21 02:31 02:40 Temperature Pulse Rate 66 67 69 Respiratory 23 23 23 Rate Blood Pressure 103/60 103/60 103/60 O2 Sat by Pulse 96 96 96 Oximetry 10/14/20 10/14/20 10/14/20 03:03 04:27 04:31 Temperature 98.4 F Pulse Rate 62 92 H 115 H Respiratory 20 17 Rate Blood Pressure 126/70 O2 Sat by Pulse 95 95 Oximetry 10/14/20 10/14/20 10/14/20 04:41 04:51 05:01 Temperature Pulse Rate 113 H 115 H 114 H Respiratory 25 H 20 24 Rate Blood Pressure 170/101 O2 Sat by Pulse 96 96 96 Oximetry 10/14/20 10/14/20 10/14/20 05:11 05:21 05:31 Temperature Pulse Rate 115 H 116 H 115 H Respiratory 24 13 19 Rate Blood Pressure 170/101 170/101 170/101 O2 Sat by Pulse 96 94 95 Oximetry 10/14/20 06:49 Temperature Pulse Rate Respiratory Rate Blood Pressure 125/80 O2 Sat by Pulse Oximetry - Labs CBC & Chem 7: 10/12/20 10:16 10/12/20 10:16 Labs: Abnormal lab results 10/13/20 10/13/20 Range/Units 08:48 14:48 HDL Cholesterol 39 L (40-59) mg/dL Coronavirus (PCR) Positive A (Negative) HEART Score - HEART Score Troponin: Troponin T < 0.010 ng/mL (0.00-0.029) 10/12/20 10:16
[2020-10-14] MEDS: TOPIRAMATE TAB 25 MG TAB PO SCH ×2 (09:56→21:16)
[2020-10-14] MEDS: ASPIRIN 325 MG TAB PO SCH (09:56)
[2020-10-14] MEDS: APIXABAN 5 MG TAB PO SCH ×2 (09:56→21:16)
[2020-10-14] MEDS: PARoxetine 20 MG TAB PO SCH (09:57)
[2020-10-15] MEDS: TOPIRAMATE TAB 25 MG TAB PO SCH ×2 (10:40→22:10)
[2020-10-15] MEDS: APIXABAN 5 MG TAB PO SCH ×2 (10:40→22:16)
[2020-10-15] MEDS: ASPIRIN 325 MG TAB PO SCH (10:40)
[2020-10-15] MEDS: PARoxetine 20 MG TAB PO SCH (10:40)
--- NOTE | 2020-10-15 12:33 | Progress Note ---
Assessment and Plan Assessment and Plan #this is 49 ys old femal with hx of recurrent CVA since 2016 had total X3 CVA ,she was diagnosed with AF in [place] and started on Eloquis in 2018 -she presented with acute onset of left side weakness and sensory impairment -NIH initially#6 --- today NIH#7 unchanged -CT head is unremarkable -CTA brain and neck is unremarkable -echo is with EF# 65-70% -MRI brain is remarkable for multiple right emboli in MCA distribution mostly -she forgot to take Eliquis for the last 4 days at least !!!before admission # Atrial fibrillation -Continue therapeutic anticoagulation, - supportive care. -need better compliance with medication -Add ASA 325 mg daily -Lipitor 40 mg daily -LDL#112 ---she insists that her PCP told her she had no cholesterol problem and she does not need medication # COVID-19 Positive -no hypoxemia -she refused to take COVID-19 vaccine # DVT prophylaxis -SCD to bilateral lower extremities while in bed, continue therapeutic anticoagulation. PLAN 1-Eliquis as rx 2- ASA 325 mg daily 3- Lipitor 40 mg daily 4- PT/Rehabilitation 5- Comply with medication 6- she is COVID-19 Positive ,Refused vaccine before will sign off Subjective Date of service: 10/15/20 Principal diagnosis: left side weakness, COVID-19 positive,AF Interval history: status is unchanged complinig of slight pain at left shoulder when try to left left arm up significant weakness left lower> upper she will require Pt/Rehabilitation Objective - Vital Sign Vital Signs - 12hr 10/15/20 05:48 Temperature 98.6 F Pulse Rate 59 L Respiratory 18 Rate Blood Pressure 118/63 O2 Sat by Pulse 98 Oximetry - General Apperance Constitutional: comfortable - EENT EENT: PERRL, mucous membranes moist - Respiratory Respiratory: chest non-tender, lungs clear, rhonchi - Cardiovascular Cardiovascular: other (AF ) Extremities: no peripheral edema bilat, no clubbing, cyanosis - Gastrointestinal Gastrointestinal: normoactive bowel sounds - Integumentary Integumentary: normal - Neurologic Cranial nerve examination: PERRL, EOMI, intact (slight left facial droop no visual deficit ) Speech examination: intact Detailed motor examination: other (left upper 3+/5 ,left lower 1-2/5 planter equivical left , gait not done) Motor examination - right side: 03/01: biceps, triceps, wrist flexion, 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, 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, 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, knee extensors, dorsiflexion, toe extension (EHL), plantarflexion - Laboratory Findings CBC and BMP: 10/12/20 10:16 10/12/20 10:16 Abnormal Lab Findings: Abnormal Labs 10/12/20 10/12/20 10/12/20 10:16 10:16 10:16 Monocytes % (Manual) 10.0 H Lymphocytes # (Manual) 1.1 L APTT 22.8 L Thrombin Time 20.0 H POC Glucose CK-MB (CK-2) Rel Index 5.1 H Albumin HDL Cholesterol Coronavirus (PCR) 10/12/20 10/13/20 10/13/20 10:16 08:48 14:48 Monocytes % (Manual) Lymphocytes # (Manual) APTT Thrombin Time POC Glucose CK-MB (CK-2) Rel Index Albumin 3.2 L HDL Cholesterol 39 L Coronavirus (PCR) Positive A 10/14/20 10/14/20 10/14/20 12:24 16:32 21:51 Monocytes % (Manual) Lymphocytes # (Manual) APTT Thrombin Time POC Glucose 210 H 114 H 111 H CK-MB (CK-2) Rel Index Albumin HDL Cholesterol Coronavirus (PCR) 10/15/20 11:31 Monocytes % (Manual) Lymphocytes # (Manual) APTT Thrombin Time POC Glucose 118 H CK-MB (CK-2) Rel Index Albumin HDL Cholesterol Coronavirus (PCR)
[2020-10-16] MEDS: APIXABAN 5 MG TAB PO SCH ×2 (10:29→23:11)
[2020-10-16] MEDS: TOPIRAMATE TAB 25 MG TAB PO SCH ×2 (10:29→23:11)
[2020-10-16] MEDS: ASPIRIN 325 MG TAB PO SCH (10:29)
[2020-10-16] MEDS: PARoxetine 20 MG TAB PO SCH (10:33)
--- NOTE | 2020-10-16 16:54 | Progress Note ---
Assessment and Plan Assessment and Plan Assessment and plan: --COVID-19 positive Current Visit: Yes Status: Acute Contact and droplet isolation Inflammatory markers Home O2 evaluation ID consult Patient has no hypoxia No indication for remdesivir or steroids Closely monitor -- Acute CVA (cerebrovascular accident) left-sided hemiparesis Current Visit: Yes Status: Acute Not a candidate for TPA Aspirin and statin, extensive neuro work-up reviewed as below Physical therapy, Occupational Therapy, speech therapy Rehabilitation Neurology consulted Neuro work-up so far: CT head without contrast; no acute intracranial abnormality noted CTA head; no evidence of large vessel occlusion stenosis or aneurysm MRI brain; numerous scattered punctate foci of acute infarctions predominantly throughout the right MCA territory right MCA territory CTA neck; unremarkable CTA neck no evidence of large vessel occlusion or stenosis patchy lung infiltrates concerning for atypical pneumonia Carotid Doppler; no hemodynamically significant stenosis Echocardiogram; LV EF: 65 to 70%, No left ventricular thrombus, No VSD, No PFO 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 fib, already on Eliquis Cardiology, neurology following --History of CVA in 2016; with residual left-sided weakness Current Visit: Yes Status: Chronic Continue supportive care, PT OT rehab --Hypertension Current Visit: Yes Status: Chronic Moderate control, continue current antihypertensives and as needed medications --Peripheral neuropathy Current Visit: Yes Status: Chronic Gabapentin and supportive care --History of atrial fibrillation Current Visit: Yes Status: Acute Continue therapeutic anticoagulation, beta-blockers supportive care. --DVT prophylaxis Current Visit: Yes Status: Acute SCD to bilateral lower extremities while in bed, Continue Eliquis Closely monitor patient and adjust management as needed Consults and recommendations noted and appreciated We will closely monitor the patient and adjust management as needed Subjective Date of service: 10/15/20 Principal diagnosis: left side weakness, COVID-19 positive,AF Interval history: 10/13/2020; Acute CVA with left-sided hemiparesis Positive COVID-19 Continue management per protocols Patient is afebrile, already on Eliquis Follow neuro, ID, cardiology evaluation and recommendations History Interval history: I have seen and examined the patient at the bedside Patient's chart and medications reviewed Patient was admitted with left-sided weakness Stroke protocol initiated Not a candidate for TPA Extensive neuro work-up done Vital signs noted Objective - Constitutional Vitals: Vital Signs - 12hr 10/16/20 10/16/2021 05:35 10:30 11:54 Temperature 97.9 F 98.1 F Pulse Rate 49 L 52 L 55 L Respiratory 20 18 18 Rate Blood Pressure 153/84 130/78 133/85 O2 Sat by Pulse 98 98 99 Oximetry 10/16/20 10/16/20 15:11 16:19 Temperature 98.1 F Pulse Rate 63 Respiratory 18 Rate Blood Pressure 135/77 O2 Sat by Pulse 96 98 Oximetry General appearance: Present: no acute distress, well-nourished - EENT Eyes: PERRL, EOM intact ENT: hearing intact, clear oral mucosa Ears: bilateral: normal - Neck Neck: supple, normal ROM - Respiratory Respiratory effort: normal Respiratory: bilateral: CTA - Breasts Breasts: normal - Cardiovascular Rhythm: regular Heart Sounds: Present: S1 & S2. Absent: gallop, rub Extremities: pulses intact, No edema, normal color, Full ROM - Gastrointestinal General gastrointestinal: Present: soft, non-tender, non-distended, normal bowel sounds - Genitourinary Female genitourinary: normal - Integumentary Integumentary: clear, warm, dry - Musculoskeletal Musculoskeletal: 1, strength equal bilaterally - Neurologic Neurologic: moves all extremities - Psychiatric Psychiatric: memory intact, appropriate mood/affect, intact judgment & insight - Labs CBC & Chem 7: 10/12/20 10:16 10/12/20 10:16 HEART Score - HEART Score Troponin: Troponin T < 0.010 ng/mL (0.00-0.029) 10/12/20 10:16
[2020-10-17] MEDS: ASPIRIN 325 MG TAB PO SCH (10:22)
[2020-10-17] MEDS: APIXABAN 5 MG TAB PO SCH ×2 (10:22→23:59)
[2020-10-17] MEDS: PARoxetine 20 MG TAB PO SCH (10:23)
[2020-10-17] MEDS: TOPIRAMATE TAB 25 MG TAB PO SCH ×2 (10:23→23:59)
--- NOTE | 2020-10-17 23:34 | Progress Note ---
Assessment and Plan Assessment and Plan Assessment and plan: --COVID-19 positive Current Visit: Yes Status: Acute Contact and droplet isolation Inflammatory markers Home O2 evaluation ID consult Patient has no hypoxia No indication for remdesivir or steroids Closely monitor -- Acute CVA (cerebrovascular accident) left-sided hemiparesis Current Visit: Yes Status: Acute Not a candidate for TPA Aspirin and statin, extensive neuro work-up reviewed as below Physical therapy, Occupational Therapy, speech therapy Rehabilitation Neurology consulted Neuro work-up so far: CT head without contrast; no acute intracranial abnormality noted CTA head; no evidence of large vessel occlusion stenosis or aneurysm MRI brain; numerous scattered punctate foci of acute infarctions predominantly throughout the right MCA territory right MCA territory CTA neck; unremarkable CTA neck no evidence of large vessel occlusion or stenosis patchy lung infiltrates concerning for atypical pneumonia Carotid Doppler; no hemodynamically significant stenosis Echocardiogram; LV EF: 65 to 70%, No left ventricular thrombus, No VSD, No PFO 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 fib, already on Eliquis Cardiology, neurology following --History of CVA in 2016; with residual left-sided weakness Current Visit: Yes Status: Chronic Continue supportive care, PT OT rehab --Hypertension Current Visit: Yes Status: Chronic Moderate control, continue current antihypertensives and as needed medications --Peripheral neuropathy Current Visit: Yes Status: Chronic Gabapentin and supportive care --History of atrial fibrillation Current Visit: Yes Status: Acute Continue therapeutic anticoagulation, beta-blockers supportive care. --DVT prophylaxis Current Visit: Yes Status: Acute SCD to bilateral lower extremities while in bed, Continue Eliquis Closely monitor patient and adjust management as needed Consults and recommendations noted and appreciated We will closely monitor the patient and adjust management as needed Subjective Date of service: 10/17/20 Principal diagnosis: left side weakness, COVID-19 positive,AF Interval history: 10/13/2020; Acute CVA with left-sided hemiparesis Positive COVID-19 Continue management per protocols Patient is afebrile, already on Eliquis Follow neuro, ID, cardiology evaluation and recommendations History Interval history: I have seen and examined the patient at the bedside Patient's chart and medications reviewed Patient was admitted with left-sided weakness Stroke protocol initiated Not a candidate for TPA Extensive neuro work-up done Vital signs noted Objective - Constitutional Vitals: Vital Signs - 12hr 08/23/21 12:18 Temperature 98.2 F Pulse Rate 68 Respiratory 20 Rate Blood Pressure 115/79 O2 Sat by Pulse 98 Oximetry General appearance: Present: no acute distress, well-nourished - EENT Eyes: PERRL, EOM intact ENT: hearing intact, clear oral mucosa Ears: bilateral: normal - Neck Neck: supple, normal ROM - Respiratory Respiratory effort: normal Respiratory: bilateral: CTA - Breasts Breasts: normal - Cardiovascular Rhythm: regular Heart Sounds: Present: S1 & S2. Absent: gallop, rub Extremities: pulses intact, No edema, normal color, Full ROM - Gastrointestinal General gastrointestinal: Present: soft, non-tender, non-distended, normal bowel sounds - Genitourinary Female genitourinary: normal - Integumentary Integumentary: clear, warm, dry - Musculoskeletal Musculoskeletal: 1, strength equal bilaterally - Neurologic Neurologic: moves all extremities - Psychiatric Psychiatric: memory intact, appropriate mood/affect, intact judgment & insight - Labs CBC & Chem 7: 10/12/20 10:16 10/12/20 10:16 HEART Score - HEART Score Troponin: Troponin T < 0.010 ng/mL (0.00-0.029) 10/12/20 10:16
[2020-10-18] MEDS: PARoxetine 20 MG TAB PO SCH (09:17)
[2020-10-18] MEDS: ASPIRIN 325 MG TAB PO SCH (09:17)
[2020-10-18] MEDS: TOPIRAMATE TAB 25 MG TAB PO SCH ×2 (09:17→22:44)
[2020-10-18] MEDS: APIXABAN 5 MG TAB PO SCH ×2 (09:17→22:44)
--- NOTE | 2020-10-18 10:26 | Progress Note ---
Assessment and Plan Assessment and plan: --COVID-19 positive Current Visit: Yes Status: Acute Contact and droplet isolation Inflammatory markers Home O2 evaluation ID consult Patient has no hypoxia No indication for remdesivir or steroids Closely monitor -- Acute CVA (cerebrovascular accident) left-sided hemiparesis Current Visit: Yes Status: Acute Not a candidate for TPA Aspirin and statin, extensive neuro work-up reviewed as below Physical therapy, Occupational Therapy, speech therapy Rehabilitation Neurology consulted Neuro work-up so far: CT head without contrast; no acute intracranial abnormality noted CTA head; no evidence of large vessel occlusion stenosis or aneurysm MRI brain; numerous scattered punctate foci of acute infarctions predominantly throughout the right MCA territory right MCA territory CTA neck; unremarkable CTA neck no evidence of large vessel occlusion or stenosis patchy lung infiltrates concerning for atypical pneumonia Carotid Doppler; no hemodynamically significant stenosis Echocardiogram; LV EF: 65 to 70%, No left ventricular thrombus, No VSD, No PFO 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 fib, already on Eliquis Cardiology, neurology following --History of CVA in 2016; with residual left-sided weakness Current Visit: Yes Status: Chronic Continue supportive care, PT OT rehab --Hypertension Current Visit: Yes Status: Chronic Moderate control, continue current antihypertensives and as needed medications --Peripheral neuropathy Current Visit: Yes Status: Chronic Gabapentin and supportive care --History of atrial fibrillation Current Visit: Yes Status: Acute Continue therapeutic anticoagulation, beta-blockers supportive care. --DVT prophylaxis Current Visit: Yes Status: Acute SCD to bilateral lower extremities while in bed, Continue Eliquis Closely monitor patient and adjust management as needed Consults and recommendations noted and appreciated We will closely monitor the patient and adjust management as needed Disposition; awaiting rehab placement Will order patton PCR test in preparation for placement Ms. Rodriguez had many questions, I answered all of them Patient did not need any supplemental oxygen However since patient is Covid we will check home O2 evaluation prior to discharge History Interval history: I have seen and examined the patient at the bedside Patient's chart and medications reviewed Strict isolation precautions and COVID-19 protocols observed No new complaints, saturating well on room air Hospitalist Physical - Constitutional Vitals: Temp Pulse Resp BP Pulse Ox 98.4 F 58 L 18 111/63 98 10/17/20 22:28 10/17/20 22:28 10/17/20 22:28 10/17/20 22:28 10/17/20 22:28 General appearance: Present: no acute distress, well-nourished - EENT Eyes: Present: PERRL, EOM intact - Neck Neck: Present: supple, normal ROM - Respiratory Respiratory effort: normal Respiratory: bilateral: diminished, negative: rales, rhonchi, wheezing - Cardiovascular Rhythm: regular Heart Sounds: Present: S1 & S2 - Extremities Extremities: no ischemia, No edema - Abdominal General gastrointestinal: soft, non-tender, non-distended, normal bowel sounds - Integumentary Integumentary: Present: clear, warm - Psychiatric Psychiatric: appropriate mood/affect, cooperative - Neurologic Neurologic: CNII-XII intact, moves all extremities HEART Score - HEART Score Troponin: Troponin T < 0.010 ng/mL (0.00-0.029) 10/12/20 10:16 Results - Labs CBC & Chem 7: 10/12/20 10:16 10/12/20 10:16 Labs: Laboratory Last Values WBC 5.0 K/mm3 (4.5-11.0) 10/12/20 10:16 RBC 4.37 M/mm3 (3.65-5.03) 10/12/20 10:16 Hgb 12.2 gm/dl (10.1-14.3) 10/12/20 10:16 Hct 36.6 % (30.3-42.9) 10/12/20 10:16 MCV 84 fl (79-97) 10/12/20 10:16 MCH 28 pg (28-32) 10/12/20 10:16 MCHC 33 % (30-34) 10/12/20 10:16 RDW 14.0 % (13.2-15.2) 10/12/20 10:16 Plt Count 425 K/mm3 (140-440) 10/12/20 10:16 Add Manual Diff Complete 10/12/20 10:16 Total Counted 100 10/12/20 10:16 Seg Neuts % (Manual) 66.0 % (40.0-70.0) 10/12/20 10:16 Lymphocytes % (Manual) 21.0 % (13.4-35.0) 10/12/20 10:16 Monocytes % (Manual) 10.0 % (0.0-7.3) H 10/12/20 10:16 Eosinophils % (Manual) 2.0 % (0.0-4.3) 10/12/20 10:16 Basophils % (Manual) 1.0 % (0.0-1.8) 10/12/20 10:16 Nucleated RBC % Not Reportable 10/12/20 10:16 Seg Neutrophils # Man 3.3 K/mm3 (1.8-7.7) 10/12/20 10:16 Band Neutrophils # 0.0 K/mm3 10/12/20 10:16 Lymphocytes # (Manual) 1.1 K/mm3 (1.2-5.4) L 10/12/20 10:16 Abs React Lymphs (Man) 0.0 K/mm3 10/12/20 10:16 Monocytes # (Manual) 0.5 K/mm3 (0.0-0.8) 10/12/20 10:16 Eosinophils # (Manual) 0.1 K/mm3 (0.0-0.4) 10/12/20 10:16 Basophils # (Manual) 0.1 K/mm3 (0.0-0.1) 10/12/20 10:16 Metamyelocytes # 0.0 K/mm3 10/12/20 10:16 Myelocytes # 0.0 K/mm3 10/12/20 10:16 Promyelocytes # 0.0 K/mm3 10/12/20 10:16 Blast Cells # 0.0 K/mm3 10/12/20 10:16 WBC Morphology Not Reportable 10/12/20 10:16 Hypersegmented Neuts Not Reportable 10/12/20 10:16 Hyposegmented Neuts Not Reportable 10/12/20 10:16 Hypogranular Neuts Not Reportable 10/12/20 10:16 Smudge Cells Not Reportable 10/12/20 10:16 Toxic Granulation Not Reportable 10/12/20 10:16 Toxic Vacuolation Not Reportable 10/12/20 10:16 Dohle Bodies Not Reportable 10/12/20 10:16 Pelger-Huet Anomaly Not Reportable 10/12/20 10:16 Rafita Rods Not Reportable 10/12/20 10:16 Platelet Estimate Not Reportable 10/12/20 10:16 Clumped Platelets Not Reportable 10/12/20 10:16 Plt Clumps, EDTA Not Reportable 10/12/20 10:16 Large Platelets Not Reportable 10/12/20 10:16 Giant Platelets Not Reportable 10/12/20 10:16 Platelet Satelliting Not Reportable 10/12/20 10:16 Plt Morphology Comment Not Reportable 10/12/20 10:16 RBC Morphology Normal 10/12/20 10:16 Dimorphic RBCs Not Reportable 10/12/20 10:16 Polychromasia Not Reportable 10/12/20 10:16 Hypochromasia Not Reportable 10/12/20 10:16 Poikilocytosis Not Reportable 10/12/20 10:16 Anisocytosis Not Reportable 10/12/20 10:16 Microcytosis Not Reportable 10/12/20 10:16 Macrocytosis Not Reportable 10/12/20 10:16 Spherocytes Not Reportable 10/12/20 10:16 Pappenheimer Bodies Not Reportable 10/12/20 10:16 Sickle Cells Not Reportable 10/12/20 10:16 Target Cells Not Reportable 10/12/20 10:16 Tear Drop Cells Not Reportable 10/12/20 10:16 Ovalocytes Not Reportable 10/12/20 10:16 Helmet Cells Not Reportable 10/12/20 10:16 Goel-Yaak Bodies Not Reportable 10/12/20 10:16 [place] Rings Not Reportable 10/12/20 10:16 Sinai Cells Not Reportable 10/12/20 10:16 Bite Cells Not Reportable 10/12/20 10:16 Crenated Cell Not Reportable 10/12/20 10:16 Elliptocytes Not Reportable 10/12/20 10:16 Acanthocytes (Spur) Not Reportable 10/12/20 10:16 Rouleaux Not Reportable 10/12/20 10:16 Hemoglobin C Crystals Not Reportable 10/12/20 10:16 Schistocytes Not Reportable 10/12/20 10:16 Malaria parasites Not Reportable 10/12/20 10:16 Ernie Bodies Not Reportable 10/12/20 10:16 Hem Pathologist Commnt No 10/12/20 10:16 PT 13.9 Sec. (12.2-14.9) 10/12/20 10:16 INR 1.01 (0.87-1.13) 10/12/20 10:16 APTT 22.8 Sec. (24.2-36.6) L 10/12/20 10:16 Thrombin Time 20.0 Sec. (15.1-19.6) H 10/12/20 10:16 Sodium 140 mmol/L (137-145) 10/12/20 10:16 Potassium 3.8 mmol/L (3.6-5.0) 10/12/20 10:16 Chloride 102.9 mmol/L (98-107) 10/12/20 10:16 Carbon Dioxide 30 mmol/L (22-30) 10/12/20 10:16 Anion Gap 11 mmol/L 10/12/20 10:16 BUN 7 mg/dL (7-17) 10/12/20 10:16 Creatinine 0.7 mg/dL (0.6-1.2) 10/12/20 10:16 Estimated GFR > 60 ml/min 10/12/20 10:16 BUN/Creatinine Ratio 10 % 10/12/20 10:16 Glucose 90 mg/dL (65-100) 10/12/20 10:16 POC Glucose 118 mg/dL (70-105) H 10/15/20 11:31 Calcium 9.5 mg/dL (8.4-10.2) 10/12/20 10:16 Total Bilirubin 0.90 mg/dL (0.1-1.2) 10/12/20 10:16 Direct Bilirubin 0.2 mg/dL (0-0.2) 10/12/20 10:16 Indirect Bilirubin 0.7 mg/dL 10/12/20 10:16 AST 23 units/L (5-40) 10/12/20 10:16 ALT 39 units/L (7-56) 10/12/20 10:16 Alkaline Phosphatase 71 units/L (35-129) 10/12/20 10:16 Total Creatine Kinase 33 units/L (30-135) 10/12/20 10:16 CK-MB (CK-2) 1.7 ng/mL (0.0-4.0) 10/12/20 10:16 CK-MB (CK-2) Rel Index 5.1 (0-4) H 10/12/20 10:16 Troponin T < 0.010 ng/mL (0.00-0.029) 10/12/20 10:16 Total Protein 6.5 g/dL (6.3-8.2) 10/12/20 10:16 Albumin 3.2 g/dL (3.9-5) L 10/12/20 10:16 Albumin/Globulin Ratio 1.0 % 10/12/20 10:16 Triglycerides 129 mg/dL (2-149) 10/13/20 14:48 Cholesterol 160 mg/dL (50-199) 10/13/20 14:48 LDL Cholesterol Direct 112 mg/dL (50-130) 10/13/20 14:48 HDL Cholesterol 39 mg/dL (40-59) L 10/13/20 14:48 Cholesterol/HDL Ratio 4.10 % 10/13/20 14:48 Coronavirus (PCR) Positive (Negative) A 10/13/20 08:48 Chaney/IV: Voiding Method Bedside Commode Active Medications - Current Medications Current Medications: Generic Name Dose Route Start Last Admin Trade Name Freq PRN Reason Stop Dose Admin Acetaminophen 650 mg 10/12/20 13:00 Acetaminophen 325 Mg Tab PO Q4H PRN Pain, Mild (1-3) Albuterol 2.5 mg 10/12/20 14:00 Albuterol 2.5 Mg/3 Ml Nebu IH Q3HRT PRN Shortness Of Breath Apixaban 5 mg 10/12/20 22:00 10/18/20 09:17 Apixaban 5 Mg Tab PO 5 mg Q12HR ALVARO Administration Aspirin 325 mg 10/13/20 10:00 10/18/20 09:17 Aspirin 325 Mg Tab PO 325 mg QDAY ALVARO Administration Atorvastatin Calcium 40 mg 10/12/20 22:00 10/17/20 23:59 Atorvastatin 40 Mg Tab PO 40 mg QHS ALVARO Administration Bisacodyl 10 mg 10/12/20 14:00 Bisacodyl 10 Mg Rect Supp MS QDAY PRN Constipation Hydromorphone HCl 0.5 mg 10/12/20 13:00 Hydromorphone 1 Mg/1 Ml Inj IV Q12H PRN Pain , Severe (7-10) Magnesium Hydroxide 30 ml 10/12/20 13:00 10/15/20 14:27 Magnesium Hydroxide (Mom) Oral Liqd Udc PO 30 ml Q4H PRN Administration Constipation Metoclopramide HCl 10 mg 10/12/20 14:00 Metoclopramide 10 Mg Tab PO Q6H PRN Nausea And Vomiting Ondansetron HCl 4 mg 10/12/20 13:00 Ondansetron 4 Mg/2 Ml Inj IV Q8H PRN Nausea And Vomiting Oxycodone/Acetaminophen 1 tab 10/12/20 14:00 10/12/20 14:08 Oxycodone /Acetaminophen 5-325mg Tab PO 1 tab Q12H PRN Administration Pain, Moderate (4-6) Paroxetine HCl 20 mg 10/13/20 10:00 10/18/20 09:17 Paroxetine 20 Mg Tab PO 20 mg DAILY ALVARO Administration Promethazine HCl 25 mg 10/12/20 14:00 Promethazine 25 Mg Rect Supp MS Q6H PRN Nausea And Vomiting Sodium Chloride 10 ml 10/12/20 14:40 10/18/20 09:17 Sodium Chloride 0.9% 10 Ml Flush Syringe IV 10 ml PRN PRN Administration LINE FLUSH Topiramate 25 mg 10/12/20 22:00 10/18/20 09:17 Topiramate Tab 25 Mg Tab PO 25 mg BID ALVARO Administration Nutrition/Malnutrition Assess - Dietary Evaluation Nutrition/Malnutrition Findings: Nutrition Notes Start: 10/15/20 11:42 Freq: Status: Active Protocol: Document 10/18/20 10:05 (Rec: 10/18/20 10:24 [id number]) Nutrition Notes Initial or Follow up Assessment Current Diagnosis Stroke Current Diet Vegan-like diet, Fish okayCardiac Consistent Caarbohydrate Labs/Tests Reviewed Pertinent Medications Reviewed Height 5 ft 9 in Weight 107.3 kg Usual Body Weight 109.09 kg Perrin Body Weight (kg) 65.90 BMI 34.9 Weight change and time frame Pt with 1.6% wt loss in 1 week . Weight Status Obese Subjective/Other Information Pt reports not eating well for a week [employer]. Pt now eating 100 % of meals. Pt states she never lost her appetite, she was too weak to cook. Pt does not want ONS Percent of energy/protein needs met: 100%/83% Burn Absent Trauma Absent Current % PO Good (75-100%) Minimum of two criteria Yes Energy Intake (severe) < or equal to 50% Estimated Energy Requirement > or equal to 5 days Interpretation of Weight Loss (non- 1-2% in 1 week severe) #1 Nutrition Diagnosis Malnutrition Etiology acute illness As Evidenced by Signs and Symptoms <50 EER in 5 days, 2% wt loss in one week Is patient on ventilator? No Is Patient Ambulatory and/or Out of Bed Yes REE-([place] or-ambulatory/OOB) [ 2284.594 NUTR.[id number]] Kcal/Kg value to use for calculation 16 Approximate Energy Requirements Using 1717 kcal/Kg Calculation Used for Recommendations Kcal/kg Additional Notes Protein: (1.2-1.5g/kg AdjBW: 87 kg) 104-131g Fluid: 1 ml/kcal Nutrition Intervention Change Diet Order: continue Add Supplement/Snack (indicate name/kcal d/c /protein ) Goal #1 Continue to meet at least 75% of protein and energy needs Follow-Up By: 10/25/20 Additional Comments F/u: stable intakes
--- NOTE | 2020-10-18 19:18 | Progress Note ---
Assessment and Plan Assessment and plan: --COVID-19 positive Current Visit: Yes Status: Acute Contact and droplet isolation Inflammatory markers Home O2 evaluation ID consult Patient has no hypoxia No indication for remdesivir or steroids Closely monitor -- Acute CVA (cerebrovascular accident) left-sided hemiparesis Current Visit: Yes Status: Acute Not a candidate for TPA Aspirin and statin, extensive neuro work-up reviewed as below Physical therapy, Occupational Therapy, speech therapy Rehabilitation Neurology consulted Neuro work-up so far: CT head without contrast; no acute intracranial abnormality noted CTA head; no evidence of large vessel occlusion stenosis or aneurysm MRI brain; numerous scattered punctate foci of acute infarctions predominantly throughout the right MCA territory right MCA territory CTA neck; unremarkable CTA neck no evidence of large vessel occlusion or stenosis patchy lung infiltrates concerning for atypical pneumonia Carotid Doppler; no hemodynamically significant stenosis Echocardiogram; LV EF: 65 to 70%, No left ventricular thrombus, No VSD, No PFO 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 fib, already on Eliquis Cardiology, neurology following --History of CVA in 2016; with residual left-sided weakness Current Visit: Yes Status: Chronic Continue supportive care, PT OT rehab --Hypertension Current Visit: Yes Status: Chronic Moderate control, continue current antihypertensives and as needed medications --Peripheral neuropathy Current Visit: Yes Status: Chronic Gabapentin and supportive care --History of atrial fibrillation Current Visit: Yes Status: Acute Continue therapeutic anticoagulation, beta-blockers supportive care. --DVT prophylaxis Current Visit: Yes Status: Acute SCD to bilateral lower extremities while in bed, Continue Eliquis Closely monitor patient and adjust management as needed Consults and recommendations noted and appreciated We will closely monitor the patient and adjust management as needed Disposition; awaiting rehab placement Covid test in preparation for rehab placement done today is positive Ms. Rodriguez had many questions, I answered all of them Patient did not need any supplemental oxygen However since patient is Covid we will check home O2 evaluation prior to discharge 10/19/2020; initially patient wanted to go home with home health However today she decided to go to rehab for PT and OT Pending rehab placement Covid test done today is positive History Interval history: I have seen and examined the patient at the bedside Patient's chart and medications reviewed Patient feels better PT OT recommended rehab placement Patient complains of tiredness and weakness Working with physical therapy today Hospitalist Physical - Constitutional Vitals: Temp Pulse Resp BP Pulse Ox 98.5 F 67 18 140/78 98 10/18/20 16:00 10/18/20 16:00 10/18/20 16:00 10/18/20 16:00 10/18/20 16:00 General appearance: Present: no acute distress, well-nourished - EENT Eyes: Present: PERRL, EOM intact - Neck Neck: Present: supple, normal ROM - Respiratory Respiratory effort: normal Respiratory: bilateral: diminished, negative: rales, rhonchi, wheezing - Cardiovascular Rhythm: regular Heart Sounds: Present: S1 & S2 - Extremities Extremities: no ischemia, No edema - Abdominal General gastrointestinal: soft, non-tender, non-distended, normal bowel sounds - Integumentary Integumentary: Present: clear, warm - Psychiatric Psychiatric: appropriate mood/affect, cooperative - Neurologic Neurologic: moves all extremities (Acute CVA with residual weakness) HEART Score - HEART Score Troponin: Troponin T < 0.010 ng/mL (0.00-0.029) 10/12/20 10:16 Results - Labs CBC & Chem 7: 10/12/20 10:16 10/12/20 10:16 Labs: Laboratory Last Values WBC 5.0 K/mm3 (4.5-11.0) 10/12/20 10:16 RBC 4.37 M/mm3 (3.65-5.03) 10/12/20 10:16 Hgb 12.2 gm/dl (10.1-14.3) 10/12/20 10:16 Hct 36.6 % (30.3-42.9) 10/12/20 10:16 MCV 84 fl (79-97) 10/12/20 10:16 MCH 28 pg (28-32) 10/12/20 10:16 MCHC 33 % (30-34) 10/12/20 10:16 RDW 14.0 % (13.2-15.2) 10/12/20 10:16 Plt Count 425 K/mm3 (140-440) 10/12/20 10:16 Add Manual Diff Complete 10/12/20 10:16 Total Counted 100 10/12/20 10:16 Seg Neuts % (Manual) 66.0 % (40.0-70.0) 10/12/20 10:16 Lymphocytes % (Manual) 21.0 % (13.4-35.0) 10/12/20 10:16 Monocytes % (Manual) 10.0 % (0.0-7.3) H 10/12/20 10:16 Eosinophils % (Manual) 2.0 % (0.0-4.3) 10/12/20 10:16 Basophils % (Manual) 1.0 % (0.0-1.8) 10/12/20 10:16 Nucleated RBC % Not Reportable 10/12/20 10:16 Seg Neutrophils # Man 3.3 K/mm3 (1.8-7.7) 10/12/20 10:16 Band Neutrophils # 0.0 K/mm3 10/12/20 10:16 Lymphocytes # (Manual) 1.1 K/mm3 (1.2-5.4) L 10/12/20 10:16 Abs React Lymphs (Man) 0.0 K/mm3 10/12/20 10:16 Monocytes # (Manual) 0.5 K/mm3 (0.0-0.8) 10/12/20 10:16 Eosinophils # (Manual) 0.1 K/mm3 (0.0-0.4) 10/12/20 10:16 Basophils # (Manual) 0.1 K/mm3 (0.0-0.1) 10/12/20 10:16 Metamyelocytes # 0.0 K/mm3 10/12/20 10:16 Myelocytes # 0.0 K/mm3 10/12/20 10:16 Promyelocytes # 0.0 K/mm3 10/12/20 10:16 Blast Cells # 0.0 K/mm3 10/12/20 10:16 WBC Morphology Not Reportable 10/12/20 10:16 Hypersegmented Neuts Not Reportable 10/12/20 10:16 Hyposegmented Neuts Not Reportable 10/12/20 10:16 Hypogranular Neuts Not Reportable 10/12/20 10:16 Smudge Cells Not Reportable 10/12/20 10:16 Toxic Granulation Not Reportable 10/12/20 10:16 Toxic Vacuolation Not Reportable 10/12/20 10:16 Dohle Bodies Not Reportable 10/12/20 10:16 Pelger-Huet Anomaly Not Reportable 10/12/20 10:16 Rafita Rods Not Reportable 10/12/20 10:16 Platelet Estimate Not Reportable 10/12/20 10:16 Clumped Platelets Not Reportable 10/12/20 10:16 Plt Clumps, EDTA Not Reportable 10/12/20 10:16 Large Platelets Not Reportable 10/12/20 10:16 Giant Platelets Not Reportable 10/12/20 10:16 Platelet Satelliting Not Reportable 10/12/20 10:16 Plt Morphology Comment Not Reportable 10/12/20 10:16 RBC Morphology Normal 10/12/20 10:16 Dimorphic RBCs Not Reportable 10/12/20 10:16 Polychromasia Not Reportable 10/12/20 10:16 Hypochromasia Not Reportable 10/12/20 10:16 Poikilocytosis Not Reportable 10/12/20 10:16 Anisocytosis Not Reportable 10/12/20 10:16 Microcytosis Not Reportable 10/12/20 10:16 Macrocytosis Not Reportable 10/12/20 10:16 Spherocytes Not Reportable 10/12/20 10:16 Pappenheimer Bodies Not Reportable 10/12/20 10:16 Sickle Cells Not Reportable 10/12/20 10:16 Target Cells Not Reportable 10/12/20 10:16 Tear Drop Cells Not Reportable 10/12/20 10:16 Ovalocytes Not Reportable 10/12/20 10:16 Helmet Cells Not Reportable 10/12/20 10:16 Goel-[place] Bodies Not Reportable 10/12/20 10:16 Long Barn Rings Not Reportable 10/12/20 10:16 [place] Cells Not Reportable 10/12/20 10:16 Bite Cells Not Reportable 10/12/20 10:16 Crenated Cell Not Reportable 10/12/20 10:16 Elliptocytes Not Reportable 10/12/20 10:16 Acanthocytes (Spur) Not Reportable 10/12/20 10:16 Rouleaux Not Reportable 10/12/20 10:16 Hemoglobin C Crystals Not Reportable 10/12/20 10:16 Schistocytes Not Reportable 10/12/20 10:16 Malaria parasites Not Reportable 10/12/20 10:16 Ernie Bodies Not Reportable 10/12/20 10:16 Hem Pathologist Commnt No 08/18/21 10:16 PT 13.9 Sec. (12.2-14.9) 10/12/20 10:16 INR 1.01 (0.87-1.13) 10/12/20 10:16 APTT 22.8 Sec. (24.2-36.6) L 10/12/20 10:16 Thrombin Time 20.0 Sec. (15.1-19.6) H 10/12/20 10:16 Sodium 140 mmol/L (137-145) 10/12/20 10:16 Potassium 3.8 mmol/L (3.6-5.0) 10/12/20 10:16 Chloride 102.9 mmol/L (98-107) 10/12/20 10:16 Carbon Dioxide 30 mmol/L (22-30) 10/12/20 10:16 Anion Gap 11 mmol/L 10/12/20 10:16 BUN 7 mg/dL (7-17) 10/12/20 10:16 Creatinine 0.7 mg/dL (0.6-1.2) 10/12/20 10:16 Estimated GFR > 60 ml/min 10/12/20 10:16 BUN/Creatinine Ratio 10 % 10/12/20 10:16 Glucose 90 mg/dL (65-100) 10/12/20 10:16 POC Glucose 118 mg/dL (70-105) H 10/15/20 11:31 Calcium 9.5 mg/dL (8.4-10.2) 10/12/20 10:16 Total Bilirubin 0.90 mg/dL (0.1-1.2) 10/12/20 10:16 Direct Bilirubin 0.2 mg/dL (0-0.2) 10/12/20 10:16 Indirect Bilirubin 0.7 mg/dL 10/12/20 10:16 AST 23 units/L (5-40) 10/12/20 10:16 ALT 39 units/L (7-56) 10/12/20 10:16 Alkaline Phosphatase 71 units/L (35-129) 10/12/20 10:16 Total Creatine Kinase 33 units/L (30-135) 10/12/20 10:16 CK-MB (CK-2) 1.7 ng/mL (0.0-4.0) 10/12/20 10:16 CK-MB (CK-2) Rel Index 5.1 (0-4) H 10/12/20 10:16 Troponin T < 0.010 ng/mL (0.00-0.029) 10/12/20 10:16 Total Protein 6.5 g/dL (6.3-8.2) 10/12/20 10:16 Albumin 3.2 g/dL (3.9-5) L 10/12/20 10:16 Albumin/Globulin Ratio 1.0 % 10/12/20 10:16 Triglycerides 129 mg/dL (2-149) 10/13/20 14:48 Cholesterol 160 mg/dL (50-199) 10/13/20 14:48 LDL Cholesterol Direct 112 mg/dL (50-130) 10/13/20 14:48 HDL Cholesterol 39 mg/dL (40-59) L 10/13/20 14:48 Cholesterol/HDL Ratio 4.10 % 10/13/20 14:48 Coronavirus (PCR) Positive (Negative) A 10/13/20 08:48 Chaney/IV: Voiding Method Bedside Commode Active Medications - Current Medications Current Medications: Generic Name Dose Route Start Last Admin Trade Name Freq PRN Reason Stop Dose Admin Acetaminophen 650 mg 10/12/20 13:00 Acetaminophen 325 Mg Tab PO Q4H PRN Pain, Mild (1-3) Albuterol 2.5 mg 10/12/20 14:00 Albuterol 2.5 Mg/3 Ml Nebu IH Q3HRT PRN Shortness Of Breath Apixaban 5 mg 10/12/20 22:00 10/18/20 09:17 Apixaban 5 Mg Tab PO 5 mg Q12HR ALVARO Administration Aspirin 325 mg 10/13/20 10:00 10/18/20 09:17 Aspirin 325 Mg Tab PO 325 mg QDAY ALVARO Administration Atorvastatin Calcium 40 mg 10/12/20 22:00 10/17/20 23:59 Atorvastatin 40 Mg Tab PO 40 mg QHS ALVARO Administration Bisacodyl 10 mg 10/12/20 14:00 Bisacodyl 10 Mg Rect Supp [place] QDAY PRN Constipation Hydromorphone HCl 0.5 mg 10/12/20 13:00 Hydromorphone 1 Mg/1 Ml Inj IV Q12H PRN Pain , Severe (7-10) Magnesium Hydroxide 30 ml 10/12/20 13:00 10/15/20 14:27 Magnesium Hydroxide (Mom) Oral Liqd Udc PO 30 ml Q4H PRN Administration Constipation Metoclopramide HCl 10 mg 10/12/20 14:00 Metoclopramide 10 Mg Tab PO Q6H PRN Nausea And Vomiting Ondansetron HCl 4 mg 10/12/20 13:00 Ondansetron 4 Mg/2 Ml Inj IV Q8H PRN Nausea And Vomiting Oxycodone/Acetaminophen 1 tab 10/12/20 14:00 10/12/20 14:08 Oxycodone /Acetaminophen 5-325mg Tab PO 1 tab Q12H PRN Administration Pain, Moderate (4-6) Paroxetine HCl 20 mg 10/13/20 10:00 10/18/20 09:17 Paroxetine 20 Mg Tab PO 20 mg DAILY ALVARO Administration Promethazine HCl 25 mg 10/12/20 14:00 Promethazine 25 Mg Rect Supp [place] Q6H PRN Nausea And Vomiting Sodium Chloride 10 ml 10/12/20 14:40 10/18/20 09:17 Sodium Chloride 0.9% 10 Ml Flush Syringe IV 10 ml PRN PRN Administration LINE FLUSH Topiramate 25 mg 10/12/20 22:00 10/18/20 09:17 Topiramate Tab 25 Mg Tab PO 25 mg BID ALVARO Administration Nutrition/Malnutrition Assess - Dietary Evaluation Nutrition/Malnutrition Findings: Nutrition Notes Start: 10/15/20 11:42 Freq: Status: Active Protocol: Document 10/18/20 10:05 (Rec: 10/18/20 10:24 [id number]) Nutrition Notes Initial or Follow up Assessment Current Diagnosis Stroke Current Diet Vegan-like diet, Fish okayCardiac Consistent Caarbohydrate Labs/Tests Reviewed Pertinent Medications Reviewed Height 5 ft 9 in Weight 107.3 kg Usual Body Weight 109.09 kg Dolphin Body Weight (kg) 65.90 BMI 34.9 Weight change and time frame Pt with 1.6% wt loss in 1 week . Weight Status Obese Subjective/Other Information Pt reports not eating well for a week [employer]. Pt now eating 100 % of meals. Pt states she never lost her appetite, she was too weak to cook. Pt does not want ONS Percent of energy/protein needs met: 100%/83% Burn Absent Trauma Absent Current % PO Good (75-100%) Minimum of two criteria Yes Energy Intake (severe) < or equal to 50% Estimated Energy Requirement > or equal to 5 days Interpretation of Weight Loss (non- 1-2% in 1 week severe) #1 Nutrition Diagnosis Malnutrition Etiology acute illness As Evidenced by Signs and Symptoms <50 EER in 5 days, 2% wt loss in one week Is patient on ventilator? No Is Patient Ambulatory and/or Out of Bed Yes REE-([place]-St. Jeor-ambulatory/OOB) [ 2284.594 NUTR.[id number]] Kcal/Kg value to use for calculation 16 Approximate Energy Requirements Using 1717 kcal/Kg Calculation Used for Recommendations Kcal/kg Additional Notes Protein: (1.2-1.5g/kg AdjBW: 87 kg) 104-131g Fluid: 1 ml/kcal Nutrition Intervention Change Diet Order: continue Add Supplement/Snack (indicate name/kcal d/c /protein ) Goal #1 Continue to meet at least 75% of protein and energy needs Follow-Up By: 10/25/20 Additional Comments F/u: stable intakes
[2020-10-18 20:22] LABS: C-Reactive Protein 0.7 mg/dL (0.00-1.30)
[2020-10-19] MEDS: APIXABAN 5 MG TAB PO SCH ×2 (10:38→21:09)
[2020-10-19] MEDS: ASPIRIN 325 MG TAB PO SCH (10:38)
[2020-10-19] MEDS: PARoxetine 20 MG TAB PO SCH (10:39)
[2020-10-19] MEDS: TOPIRAMATE TAB 25 MG TAB PO SCH ×2 (10:41→21:09)
[2020-10-20] MEDS: PARoxetine 20 MG TAB PO SCH (09:17)
[2020-10-20] MEDS: TOPIRAMATE TAB 25 MG TAB PO SCH ×2 (09:17→22:00)
[2020-10-20] MEDS: ASPIRIN 325 MG TAB PO SCH (09:17)
[2020-10-20] MEDS: APIXABAN 5 MG TAB PO SCH ×2 (09:17→22:00)
--- NOTE | 2020-10-20 16:09 | Progress Note ---
Assessment and Plan Assessment and plan: --COVID-19 positive Current Visit: Yes Status: Acute Contact and droplet isolation Inflammatory markers Home O2 evaluation ID consult Patient has no hypoxia No indication for remdesivir or steroids Closely monitor -- Acute CVA (cerebrovascular accident) left-sided hemiparesis Current Visit: Yes Status: Acute Not a candidate for TPA Aspirin and statin, extensive neuro work-up reviewed as below Physical therapy, Occupational Therapy, speech therapy Rehabilitation Neurology consulted Neuro work-up so far: CT head without contrast; no acute intracranial abnormality noted CTA head; no evidence of large vessel occlusion stenosis or aneurysm MRI brain; numerous scattered punctate foci of acute infarctions predominantly throughout the right MCA territory right MCA territory CTA neck; unremarkable CTA neck no evidence of large vessel occlusion or stenosis patchy lung infiltrates concerning for atypical pneumonia Carotid Doppler; no hemodynamically significant stenosis Echocardiogram; LV EF: 65 to 70%, No left ventricular thrombus, No VSD, No PFO 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 fib, already on Eliquis Cardiology, neurology following --History of CVA in 2016; with residual left-sided weakness Current Visit: Yes Status: Chronic Continue supportive care, PT OT rehab --Hypertension Current Visit: Yes Status: Chronic Moderate control, continue current antihypertensives and as needed medications --Peripheral neuropathy Current Visit: Yes Status: Chronic Gabapentin and supportive care --History of atrial fibrillation Current Visit: Yes Status: Acute Continue therapeutic anticoagulation, beta-blockers supportive care. --DVT prophylaxis Current Visit: Yes Status: Acute SCD to bilateral lower extremities while in bed, Continue Eliquis Closely monitor patient and adjust management as needed Consults and recommendations noted and appreciated We will closely monitor the patient and adjust management as needed Disposition; awaiting rehab placement Covid test in preparation for rehab placement done today is positive Ms. Rodriguez had many questions, I answered all of them Patient did not need any supplemental oxygen However since patient is Covid we will check home O2 evaluation prior to discharge 10/19/2020; initially patient wanted to go home with home health However today she decided to go to rehab for PT and OT Pending rehab placement Covid test done today is positive Discharge planning per case management 10/20/2020; PT OT recommended acute rehab placement DC planning per case management Repeat Covid test yesterday 10/19/2020 is positive Results - Labs CBC & Chem 7: 10/12/20 10:16 10/12/20 10:16 Labs: Laboratory Last Values WBC 5.0 K/mm3 (4.5-11.0) 10/12/20 10:16 RBC 4.37 M/mm3 (3.65-5.03) 10/12/20 10:16 Hgb 12.2 gm/dl (10.1-14.3) 10/12/20 10:16 Hct 36.6 % (30.3-42.9) 10/12/20 10:16 MCV 84 fl (79-97) 10/12/20 10:16 MCH 28 pg (28-32) 10/12/20 10:16 MCHC 33 % (30-34) 10/12/20 10:16 RDW 14.0 % (13.2-15.2) 10/12/20 10:16 Plt Count 425 K/mm3 (140-440) 10/12/20 10:16 Add Manual Diff Complete 10/12/20 10:16 Total Counted 100 10/12/20 10:16 Seg Neuts % (Manual) 66.0 % (40.0-70.0) 10/12/20 10:16 Lymphocytes % (Manual) 21.0 % (13.4-35.0) 10/12/20 10:16 Monocytes % (Manual) 10.0 % (0.0-7.3) H 10/12/20 10:16 Eosinophils % (Manual) 2.0 % (0.0-4.3) 10/12/20 10:16 Basophils % (Manual) 1.0 % (0.0-1.8) 10/12/20 10:16 Nucleated RBC % Not Reportable 10/12/20 10:16 Seg Neutrophils # Man 3.3 K/mm3 (1.8-7.7) 10/12/20 10:16 Band Neutrophils # 0.0 K/mm3 10/12/20 10:16 Lymphocytes # (Manual) 1.1 K/mm3 (1.2-5.4) L 10/12/20 10:16 Abs React Lymphs (Man) 0.0 K/mm3 10/12/20 10:16 Monocytes # (Manual) 0.5 K/mm3 (0.0-0.8) 10/12/20 10:16 Eosinophils # (Manual) 0.1 K/mm3 (0.0-0.4) 10/12/20 10:16 Basophils # (Manual) 0.1 K/mm3 (0.0-0.1) 10/12/20 10:16 Metamyelocytes # 0.0 K/mm3 10/12/20 10:16 Myelocytes # 0.0 K/mm3 10/12/20 10:16 Promyelocytes # 0.0 K/mm3 10/12/20 10:16 Blast Cells # 0.0 K/mm3 10/12/20 10:16 WBC Morphology Not Reportable 10/12/20 10:16 Hypersegmented Neuts Not Reportable 10/12/20 10:16 Hyposegmented Neuts Not Reportable 10/12/20 10:16 Hypogranular Neuts Not Reportable 10/12/20 10:16 Smudge Cells Not Reportable 10/12/20 10:16 Toxic Granulation Not Reportable 10/12/20 10:16 Toxic Vacuolation Not Reportable 10/12/20 10:16 Dohle Bodies Not Reportable 10/12/20 10:16 Pelger-Huet Anomaly Not Reportable 10/12/20 10:16 Rafita Rods Not Reportable 10/12/20 10:16 Platelet Estimate Not Reportable 10/12/20 10:16 Clumped Platelets Not Reportable 10/12/20 10:16 Plt Clumps, EDTA Not Reportable 10/12/20 10:16 Large Platelets Not Reportable 10/12/20 10:16 Giant Platelets Not Reportable 10/12/20 10:16 Platelet Satelliting Not Reportable 10/12/20 10:16 Plt Morphology Comment Not Reportable 10/12/20 10:16 RBC Morphology Normal 10/12/20 10:16 Dimorphic RBCs Not Reportable 10/12/20 10:16 Polychromasia Not Reportable 10/12/20 10:16 Hypochromasia Not Reportable 10/12/20 10:16 Poikilocytosis Not Reportable 10/12/20 10:16 Anisocytosis Not Reportable 10/12/20 10:16 Microcytosis Not Reportable 10/12/20 10:16 Macrocytosis Not Reportable 10/12/20 10:16 Spherocytes Not Reportable 10/12/20 10:16 Pappenheimer Bodies Not Reportable 10/12/20 10:16 Sickle Cells Not Reportable 10/12/20 10:16 Target Cells Not Reportable 10/12/20 10:16 Tear Drop Cells Not Reportable 10/12/20 10:16 Ovalocytes Not Reportable 10/12/20 10:16 Helmet Cells Not Reportable 10/12/20 10:16 Goel-Tusayan Bodies Not Reportable 10/12/20 10:16 [place] Rings Not Reportable 10/12/20 10:16 [place] Cells Not Reportable 10/12/20 10:16 Bite Cells Not Reportable 10/12/20 10:16 Crenated Cell Not Reportable 10/12/20 10:16 Elliptocytes Not Reportable 10/12/20 10:16 Acanthocytes (Spur) Not Reportable 10/12/20 10:16 Rouleaux Not Reportable 10/12/20 10:16 Hemoglobin C Crystals Not Reportable 10/12/20 10:16 Schistocytes Not Reportable 10/12/20 10:16 Malaria parasites Not Reportable 10/12/20 10:16 Ernie Bodies Not Reportable 10/12/20 10:16 Hem Pathologist Commnt No 10/12/20 10:16 PT 13.9 Sec. (12.2-14.9) 10/12/20 10:16 INR 1.01 (0.87-1.13) 10/12/20 10:16 APTT 22.8 Sec. (24.2-36.6) L 10/12/20 10:16 Thrombin Time 20.0 Sec. (15.1-19.6) H 10/12/20 10:16 Sodium 140 mmol/L (137-145) 10/12/20 10:16 Potassium 3.8 mmol/L (3.6-5.0) 10/12/20 10:16 Chloride 102.9 mmol/L (98-107) 10/12/20 10:16 Carbon Dioxide 30 mmol/L (22-30) 10/12/20 10:16 Anion Gap 11 mmol/L 10/12/20 10:16 BUN 7 mg/dL (7-17) 10/12/20 10:16 Creatinine 0.7 mg/dL (0.6-1.2) 10/12/20 10:16 Estimated GFR > 60 ml/min 10/12/20 10:16 BUN/Creatinine Ratio 10 % 10/12/20 10:16 Glucose 90 mg/dL (65-100) 10/12/20 10:16 POC Glucose 118 mg/dL (70-105) H 10/15/20 11:31 Calcium 9.5 mg/dL (8.4-10.2) 10/12/20 10:16 Total Bilirubin 0.90 mg/dL (0.1-1.2) 10/12/20 10:16 Direct Bilirubin 0.2 mg/dL (0-0.2) 10/12/20 10:16 Indirect Bilirubin 0.7 mg/dL 10/12/20 10:16 AST 23 units/L (5-40) 10/12/20 10:16 ALT 39 units/L (7-56) 10/12/20 10:16 Alkaline Phosphatase 71 units/L (35-129) 10/12/20 10:16 Total Creatine Kinase 33 units/L (30-135) 10/12/20 10:16 CK-MB (CK-2) 1.7 ng/mL (0.0-4.0) 10/12/20 10:16 CK-MB (CK-2) Rel Index 5.1 (0-4) H 10/12/20 10:16 Troponin T < 0.010 ng/mL (0.00-0.029) 10/12/20 10:16 Total Protein 6.5 g/dL (6.3-8.2) 10/12/20 10:16 Albumin 3.2 g/dL (3.9-5) L 10/12/20 10:16 Albumin/Globulin Ratio 1.0 % 10/12/20 10:16 Triglycerides 129 mg/dL (2-149) 10/13/20 14:48 Cholesterol 160 mg/dL (50-199) 10/13/20 14:48 LDL Cholesterol Direct 112 mg/dL (50-130) 10/13/20 14:48 HDL Cholesterol 39 mg/dL (40-59) L 10/13/20 14:48 Cholesterol/HDL Ratio 4.10 % 10/13/20 14:48 Coronavirus (PCR) Positive (Negative) A 10/13/20 08:48 Chaney/IV: Voiding Method Bedside Commode Active Medications - Current Medications Current Medications: Generic Name Dose Route Start Last Admin Trade Name Freq PRN Reason Stop Dose Admin Acetaminophen 650 mg 10/12/20 13:00 Acetaminophen 325 Mg Tab PO Q4H PRN Pain, Mild (1-3) Albuterol 2.5 mg 10/12/20 14:00 Albuterol 2.5 Mg/3 Ml Nebu IH Q3HRT PRN Shortness Of Breath Apixaban 5 mg 10/12/20 22:00 10/18/20 09:17 Apixaban 5 Mg Tab PO 5 mg Q12HR ALVARO Administration Aspirin 325 mg 10/13/20 10:00 10/18/20 09:17 Aspirin 325 Mg Tab PO 325 mg QDAY ALVARO Administration Atorvastatin Calcium 40 mg 10/12/20 22:00 10/17/20 23:59 Atorvastatin 40 Mg Tab PO 40 mg QHS ALVARO Administration Bisacodyl 10 mg 10/12/20 14:00 Bisacodyl 10 Mg Rect Supp GA QDAY PRN Constipation Hydromorphone HCl 0.5 mg 10/12/20 13:00 Hydromorphone 1 Mg/1 Ml Inj IV Q12H PRN Pain , Severe (7-10) Magnesium Hydroxide 30 ml 10/12/20 13:00 10/15/20 14:27 Magnesium Hydroxide (Mom) Oral Liqd Udc PO 30 ml Q4H PRN Administration Constipation Metoclopramide HCl 10 mg 10/12/20 14:00 Metoclopramide 10 Mg Tab PO Q6H PRN Nausea And Vomiting Ondansetron HCl 4 mg 10/12/20 13:00 Ondansetron 4 Mg/2 Ml Inj IV Q8H PRN Nausea And Vomiting Oxycodone/Acetaminophen 1 tab 10/12/20 14:00 10/12/20 14:08 Oxycodone /Acetaminophen 5-325mg Tab PO 1 tab Q12H PRN Administration Pain, Moderate (4-6) Paroxetine HCl 20 mg 10/13/20 10:00 10/18/20 09:17 Paroxetine 20 Mg Tab PO 20 mg DAILY ALVARO Administration Promethazine HCl 25 mg 10/12/20 14:00 Promethazine 25 Mg Rect Supp GA Q6H PRN Nausea And Vomiting Sodium Chloride 10 ml 10/12/20 14:40 10/18/20 09:17 Sodium Chloride 0.9% 10 Ml Flush Syringe IV 10 ml PRN PRN Administration LINE FLUSH Topiramate 25 mg 10/12/20 22:00 10/18/20 09:17 Topiramate Tab 25 Mg Tab PO 25 mg BID ALVARO Administration Nutrition/Malnutrition Assess - Dietary Evaluation Nutrition/Malnutrition Findings: Nutrition Notes Start: 10/15/20 11:42 Freq: Status: Active Protocol: Document 10/18/20 10:05 (Rec: 10/18/20 10:24 [id number]) Nutrition Notes Initial or Follow up Assessment Current Diagnosis Stroke Current Diet Vegan-like diet, Fish okayCardiac Consistent Caarbohydrate Labs/Tests Reviewed Pertinent Medications Reviewed Height 5 ft 9 in Weight 107.3 kg Usual Body Weight 109.09 kg [place] Body Weight (kg) 65.90 BMI 34.9 Weight change and time frame Pt with 1.6% wt loss in 1 week . Weight Status Obese Subjective/Other Information Pt reports not eating well for a week [employer]. Pt now eating 100 % of meals. Pt states she never lost her appetite, she was too weak to cook. Pt does not want ONS Percent of energy/protein needs met: 100%/83% Burn Absent Trauma Absent Current % PO Good (75-100%) Minimum of two criteria Yes Energy Intake (severe) < or equal to 50% Estimated Energy Requirement > or equal to 5 days Interpretation of Weight Loss (non- 1-2% in 1 week severe) #1 Nutrition Diagnosis Malnutrition Etiology acute illness As Evidenced by Signs and Symptoms <50 EER in 5 days, 2% wt loss in one week Is patient on ventilator? No Is Patient Ambulatory and/or Out of Bed Yes REE-([place]-ambulatory/OOB) [ 2284.594 NUTR.MSJOOB] Kcal/Kg value to use for calculation 16 Approximate Energy Requirements Using 1717 kcal/Kg Calculation Used for Recommendations Kcal/kg Additional Notes Protein: (1.2-1.5g/kg AdjBW: 87 kg) 104-131g Fluid: 1 ml/kcal Nutrition Intervention Change Diet Order: continue Add Supplement/Snack (indicate name/kcal d/c /protein ) Goal #1 Continue to meet at least 75% of protein and energy needs Follow-Up By: 10/25/20 Additional Comments F/u: stable intakes History Interval history: I spoke with the patient, she feels better She is more concerned about her stroke And awaiting acute rehab placement Patient tolerated today's physical therapy No new complaints Hospitalist Physical - Physical exam Narrative exam: I have not performed the physical examination to reduce the risk of transmission - Constitutional Vitals: Temp Pulse Resp BP Pulse Ox 98.0 F 81 22 134/79 98 10/20/20 11:47 10/20/20 11:47 10/20/20 11:47 10/20/20 11:47 10/20/20 11:47 General appearance: Present: other (Physical examination not done to reduce the risk of transmission) - EENT ENT: other (Not done to reduce risk of transmission) - Neck Neck: Present: other (Not done to reduce risk of transmission) - Respiratory Respiratory effort: other (Not done to reduce risk of transmission) Respiratory: bilateral: diminished, rhonchi, negative: rales, wheezing - Cardiovascular Rhythm: other (Not done to reduce risk of transmission) - Extremities Extremity abnormal: other (Not done to reduce risk of transmission) - Abdominal General gastrointestinal: other (Not done to reduce risk of transmission) - Psychiatric Psychiatric: other (Not done to reduce risk of transmission) - Neurologic Neurologic: other (Not done to reduce risk of transmission) HEART Score - HEART Score Troponin: Troponin T < 0.010 ng/mL (0.00-0.029) 10/12/20 10:16 Results - Labs CBC & Chem 7: 10/12/20 10:16 10/12/20 10:16 Labs: Laboratory Last Values WBC 5.0 K/mm3 (4.5-11.0) 10/12/20 10:16 RBC 4.37 M/mm3 (3.65-5.03) 10/12/20 10:16 Hgb 12.2 gm/dl (10.1-14.3) 10/12/20 10:16 Hct 36.6 % (30.3-42.9) 10/12/20 10:16 MCV 84 fl (79-97) 10/12/20 10:16 MCH 28 pg (28-32) 10/12/20 10:16 MCHC 33 % (30-34) 10/12/20 10:16 RDW 14.0 % (13.2-15.2) 10/12/20 10:16 Plt Count 425 K/mm3 (140-440) 10/12/20 10:16 Add Manual Diff Complete 10/12/20 10:16 Total Counted 100 10/12/20 10:16 Seg Neuts % (Manual) 66.0 % (40.0-70.0) 10/12/20 10:16 Lymphocytes % (Manual) 21.0 % (13.4-35.0) 10/12/20 10:16 Monocytes % (Manual) 10.0 % (0.0-7.3) H 10/12/20 10:16 Eosinophils % (Manual) 2.0 % (0.0-4.3) 10/12/20 10:16 Basophils % (Manual) 1.0 % (0.0-1.8) 10/12/20 10:16 Nucleated RBC % Not Reportable 10/12/20 10:16 Seg Neutrophils # Man 3.3 K/mm3 (1.8-7.7) 10/12/20 10:16 Band Neutrophils # 0.0 K/mm3 10/12/20 10:16 Lymphocytes # (Manual) 1.1 K/mm3 (1.2-5.4) L 10/12/20 10:16 Abs React Lymphs (Man) 0.0 K/mm3 10/12/20 10:16 Monocytes # (Manual) 0.5 K/mm3 (0.0-0.8) 10/12/20 10:16 Eosinophils # (Manual) 0.1 K/mm3 (0.0-0.4) 10/12/20 10:16 Basophils # (Manual) 0.1 K/mm3 (0.0-0.1) 10/12/20 10:16 Metamyelocytes # 0.0 K/mm3 10/12/20 10:16 Myelocytes # 0.0 K/mm3 10/12/20 10:16 Promyelocytes # 0.0 K/mm3 10/12/20 10:16 Blast Cells # 0.0 K/mm3 10/12/20 10:16 WBC Morphology Not Reportable 10/12/20 10:16 Hypersegmented Neuts Not Reportable 10/12/20 10:16 Hyposegmented Neuts Not Reportable 10/12/20 10:16 Hypogranular Neuts Not Reportable 10/12/20 10:16 Smudge Cells Not Reportable 10/12/20 10:16 Toxic Granulation Not Reportable 10/12/20 10:16 Toxic Vacuolation Not Reportable 10/12/20 10:16 Dohle Bodies Not Reportable 10/12/20 10:16 Pelger-Huet Anomaly Not Reportable 10/12/20 10:16 Rafita Rods Not Reportable 10/12/20 10:16 Platelet Estimate Not Reportable 10/12/20 10:16 Clumped Platelets Not Reportable 10/12/20 10:16 Plt Clumps, EDTA Not Reportable 10/12/20 10:16 Large Platelets Not Reportable 10/12/20 10:16 Giant Platelets Not Reportable 10/12/20 10:16 Platelet Satelliting Not Reportable 10/12/20 10:16 Plt Morphology Comment Not Reportable 10/12/20 10:16 RBC Morphology Normal 10/12/20 10:16 Dimorphic RBCs Not Reportable 10/12/20 10:16 Polychromasia Not Reportable 10/12/20 10:16 Hypochromasia Not Reportable 10/12/20 10:16 Poikilocytosis Not Reportable 10/12/20 10:16 Anisocytosis Not Reportable 10/12/20 10:16 Microcytosis Not Reportable 10/12/20 10:16 Macrocytosis Not Reportable 10/12/20 10:16 Spherocytes Not Reportable 10/12/20 10:16 Pappenheimer Bodies Not Reportable 10/12/20 10:16 Sickle Cells Not Reportable 10/12/20 10:16 Target Cells Not Reportable 10/12/20 10:16 Tear Drop Cells Not Reportable 10/12/20 10:16 Ovalocytes Not Reportable 10/12/20 10:16 Helmet Cells Not Reportable 10/12/20 10:16 Goel-[place] Bodies Not Reportable 10/12/20 10:16 [place] Rings Not Reportable 10/12/20 10:16 [place] Cells Not Reportable 10/12/20 10:16 Bite Cells Not Reportable 10/12/20 10:16 Crenated Cell Not Reportable 10/12/20 10:16 Elliptocytes Not Reportable 10/12/20 10:16 Acanthocytes (Spur) Not Reportable 10/12/20 10:16 Rouleaux Not Reportable 10/12/20 10:16 Hemoglobin C Crystals Not Reportable 10/12/20 10:16 Schistocytes Not Reportable 10/12/20 10:16 Malaria parasites Not Reportable 10/12/20 10:16 Ernie Bodies Not Reportable 10/12/20 10:16 Hem Pathologist Commnt No 10/12/20 10:16 PT 13.9 Sec. (12.2-14.9) 10/12/20 10:16 INR 1.01 (0.87-1.13) 10/12/20 10:16 APTT 22.8 Sec. (24.2-36.6) L 10/12/20 10:16 Thrombin Time 20.0 Sec. (15.1-19.6) H 10/12/20 10:16 D-Dimer 720.38 ng/mlDDU (0-234) H 10/18/20 19:55 Sodium 140 mmol/L (137-145) 10/12/20 10:16 Potassium 3.8 mmol/L (3.6-5.0) 10/12/20 10:16 Chloride 102.9 mmol/L (98-107) 10/12/20 10:16 Carbon Dioxide 30 mmol/L (22-30) 10/12/20 10:16 Anion Gap 11 mmol/L 10/12/20 10:16 BUN 7 mg/dL (7-17) 10/12/20 10:16 Creatinine 0.7 mg/dL (0.6-1.2) 10/12/20 10:16 Estimated GFR > 60 ml/min 10/12/20 10:16 BUN/Creatinine Ratio 10 % 10/12/20 10:16 Glucose 90 mg/dL (65-100) 10/12/20 10:16 POC Glucose 118 mg/dL (70-105) H 10/15/20 11:31 Calcium 9.5 mg/dL (8.4-10.2) 10/12/20 10:16 Ferritin 289.9 ng/mL (10.0-200.0) H 10/18/20 19:54 Total Bilirubin 0.90 mg/dL (0.1-1.2) 10/12/20 10:16 Direct Bilirubin 0.2 mg/dL (0-0.2) 10/12/20 10:16 Indirect Bilirubin 0.7 mg/dL 10/12/20 10:16 AST 23 units/L (5-40) 10/12/20 10:16 ALT 39 units/L (7-56) 10/12/20 10:16 Alkaline Phosphatase 71 units/L (35-129) 10/12/20 10:16 Lactate Dehydrogenase 205 units/L (91-180) H 10/18/20 19:55 Total Creatine Kinase 33 units/L (30-135) 10/12/20 10:16 CK-MB (CK-2) 1.7 ng/mL (0.0-4.0) 10/12/20 10:16 CK-MB (CK-2) Rel Index 5.1 (0-4) H 10/12/20 10:16 Troponin T < 0.010 ng/mL (0.00-0.029) 10/12/20 10:16 C-Reactive Protein 0.70 mg/dL (0.00-1.30) 10/18/20 19:55 Total Protein 6.5 g/dL (6.3-8.2) 10/12/20 10:16 Albumin 3.2 g/dL (3.9-5) L 10/12/20 10:16 Albumin/Globulin Ratio 1.0 % 10/12/20 10:16 Triglycerides 129 mg/dL (2-149) 10/13/20 14:48 Cholesterol 160 mg/dL (50-199) 10/13/20 14:48 LDL Cholesterol Direct 112 mg/dL (50-130) 10/13/20 14:48 HDL Cholesterol 39 mg/dL (40-59) L 10/13/20 14:48 Cholesterol/HDL Ratio 4.10 % 10/13/20 14:48 Coronavirus (PCR) Positive (Negative) A 10/19/20 Unknown Chaney/IV: Voiding Method Bedside Commode Active Medications - Current Medications Current Medications: Generic Name Dose Route Start Last Admin Trade Name Freq PRN Reason Stop Dose Admin Acetaminophen 650 mg 10/12/20 13:00 Acetaminophen 325 Mg Tab PO Q4H PRN Pain, Mild (1-3) Albuterol 2.5 mg 10/12/20 14:00 Albuterol 2.5 Mg/3 Ml Nebu IH Q3HRT PRN Shortness Of Breath Apixaban 5 mg 10/12/20 22:00 10/20/20 09:17 Apixaban 5 Mg Tab PO 5 mg Q12HR ALVARO Administration Aspirin 325 mg 10/13/20 10:00 10/20/20 09:17 Aspirin 325 Mg Tab PO 325 mg QDAY ALVARO Administration Atorvastatin Calcium 40 mg 10/12/20 22:00 10/19/20 21:24 Atorvastatin 40 Mg Tab PO Not Given QHS ALVARO Bisacodyl 10 mg 10/12/20 14:00 Bisacodyl 10 Mg Rect Supp GA QDAY PRN Constipation Hydromorphone HCl 0.5 mg 10/12/20 13:00 Hydromorphone 1 Mg/1 Ml Inj IV Q12H PRN Pain , Severe (7-10) Magnesium Hydroxide 30 ml 10/12/20 13:00 10/15/20 14:27 Magnesium Hydroxide (Mom) Oral Liqd Udc PO 30 ml Q4H PRN Administration Constipation Metoclopramide HCl 10 mg 10/12/20 14:00 Metoclopramide 10 Mg Tab PO Q6H PRN Nausea And Vomiting Ondansetron HCl 4 mg 10/12/20 13:00 Ondansetron 4 Mg/2 Ml Inj IV Q8H PRN Nausea And Vomiting Oxycodone/Acetaminophen 1 tab 10/12/20 14:00 10/12/20 14:08 Oxycodone /Acetaminophen 5-325mg Tab PO 1 tab Q12H PRN Administration Pain, Moderate (4-6) Paroxetine HCl 20 mg 10/13/20 10:00 10/20/20 09:17 Paroxetine 20 Mg Tab PO 20 mg DAILY ALVARO Administration Promethazine HCl 25 mg 10/12/20 14:00 Promethazine 25 Mg Rect Supp GA Q6H PRN Nausea And Vomiting Sodium Chloride 10 ml 10/12/20 14:40 10/19/20 10:41 Sodium Chloride 0.9% 10 Ml Flush Syringe IV 10 ml PRN PRN Administration LINE FLUSH Topiramate 25 mg 10/12/20 22:00 10/20/20 09:17 Topiramate Tab 25 Mg Tab PO 25 mg BID ALVARO Administration Nutrition/Malnutrition Assess - Dietary Evaluation Nutrition/Malnutrition Findings: Nutrition Notes Start: 10/15/20 11:42 Freq: Status: Active Protocol: Document 10/18/20 10:05 (Rec: 10/18/20 10:24 [id number]) Nutrition Notes Initial or Follow up Assessment Current Diagnosis Stroke Current Diet Vegan-like diet, Fish okayCardiac Consistent Caarbohydrate Labs/Tests Reviewed Pertinent Medications Reviewed Height 5 ft 9 in Weight 107.3 kg Usual Body Weight 109.09 kg [place] Body Weight (kg) 65.90 BMI 34.9 Weight change and time frame Pt with 1.6% wt loss in 1 week . Weight Status Obese Subjective/Other Information Pt reports not eating well for a week [employer]. Pt now eating 100 % of meals. Pt states she never lost her appetite, she was too weak to cook. Pt does not want ONS Percent of energy/protein needs met: 100%/83% Burn Absent Trauma Absent Current % PO Good (75-100%) Minimum of two criteria Yes Energy Intake (severe) < or equal to 50% Estimated Energy Requirement > or equal to 5 days Interpretation of Weight Loss (non- 1-2% in 1 week severe) #1 Nutrition Diagnosis Malnutrition Etiology acute illness As Evidenced by Signs and Symptoms <50 EER in 5 days, 2% wt loss in one week Is patient on ventilator? No Is Patient Ambulatory and/or Out of Bed Yes REE-([place]-ambulatory/OOB) [ 2284.594 NUTR.MSJOOB] Kcal/Kg value to use for calculation 16 Approximate Energy Requirements Using 1717 kcal/Kg Calculation Used for Recommendations Kcal/kg Additional Notes Protein: (1.2-1.5g/kg AdjBW: 87 kg) 104-131g Fluid: 1 ml/kcal Nutrition Intervention Change Diet Order: continue Add Supplement/Snack (indicate name/kcal d/c /protein ) Goal #1 Continue to meet at least 75% of protein and energy needs Follow-Up By: 10/25/20 Additional Comments F/u: stable intakes
--- NOTE | 2020-10-20 16:11 | Progress Note ---
Assessment and Plan Assessment and plan: --COVID-19 positive Current Visit: Yes Status: Acute Contact and droplet isolation Inflammatory markers Home O2 evaluation ID consult Patient has no hypoxia No indication for remdesivir or steroids Closely monitor -- Acute CVA (cerebrovascular accident) left-sided hemiparesis Current Visit: Yes Status: Acute Not a candidate for TPA Aspirin and statin, extensive neuro work-up reviewed as below Physical therapy, Occupational Therapy, speech therapy Rehabilitation Neurology consulted Neuro work-up so far: CT head without contrast; no acute intracranial abnormality noted CTA head; no evidence of large vessel occlusion stenosis or aneurysm MRI brain; numerous scattered punctate foci of acute infarctions predominantly throughout the right MCA territory right MCA territory CTA neck; unremarkable CTA neck no evidence of large vessel occlusion or stenosis patchy lung infiltrates concerning for atypical pneumonia Carotid Doppler; no hemodynamically significant stenosis Echocardiogram; LV EF: 65 to 70%, No left ventricular thrombus, No VSD, No PFO 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 fib, already on Eliquis Cardiology, neurology following --History of CVA in 2016; with residual left-sided weakness Current Visit: Yes Status: Chronic Continue supportive care, PT OT rehab --Hypertension Current Visit: Yes Status: Chronic Moderate control, continue current antihypertensives and as needed medications --Peripheral neuropathy Current Visit: Yes Status: Chronic Gabapentin and supportive care --History of atrial fibrillation Current Visit: Yes Status: Acute Continue therapeutic anticoagulation, beta-blockers supportive care. --DVT prophylaxis Current Visit: Yes Status: Acute SCD to bilateral lower extremities while in bed, Continue Eliquis Closely monitor patient and adjust management as needed Consults and recommendations noted and appreciated We will closely monitor the patient and adjust management as needed Disposition; awaiting rehab placement Will order patton PCR test in preparation for placement Ms. Rodriguez had many questions, I answered all of them Patient did not need any supplemental oxygen However since patient is Covid we will check home O2 evaluation prior to discharge 10/19/2020; initially patient wanted to go home with home health However today she decided to go to rehab for PT and OT Pending rehab placement Covid test done today is positive Hospitalist Physical - Constitutional Vitals: Temp Pulse Resp BP Pulse Ox 98.0 F 81 22 134/79 98 10/20/20 11:47 10/20/20 11:47 10/20/20 11:47 10/20/20 11:47 10/20/20 11:47 General appearance: Present: no acute distress, well-nourished HEART Score - HEART Score Troponin: Troponin T < 0.010 ng/mL (0.00-0.029) 10/12/20 10:16 Results - Labs CBC & Chem 7: 10/12/20 10:16 10/12/20 10:16 Labs: Laboratory Last Values WBC 5.0 K/mm3 (4.5-11.0) 10/12/20 10:16 RBC 4.37 M/mm3 (3.65-5.03) 10/12/20 10:16 Hgb 12.2 gm/dl (10.1-14.3) 10/12/20 10:16 Hct 36.6 % (30.3-42.9) 10/12/20 10:16 MCV 84 fl (79-97) 10/12/20 10:16 MCH 28 pg (28-32) 10/12/20 10:16 MCHC 33 % (30-34) 10/12/20 10:16 RDW 14.0 % (13.2-15.2) 10/12/20 10:16 Plt Count 425 K/mm3 (140-440) 10/12/20 10:16 Add Manual Diff Complete 10/12/20 10:16 Total Counted 100 10/12/20 10:16 Seg Neuts % (Manual) 66.0 % (40.0-70.0) 10/12/20 10:16 Lymphocytes % (Manual) 21.0 % (13.4-35.0) 10/12/20 10:16 Monocytes % (Manual) 10.0 % (0.0-7.3) H 10/12/20 10:16 Eosinophils % (Manual) 2.0 % (0.0-4.3) 10/12/20 10:16 Basophils % (Manual) 1.0 % (0.0-1.8) 10/12/20 10:16 Nucleated RBC % Not Reportable 10/12/20 10:16 Seg Neutrophils # Man 3.3 K/mm3 (1.8-7.7) 10/12/20 10:16 Band Neutrophils # 0.0 K/mm3 10/12/20 10:16 Lymphocytes # (Manual) 1.1 K/mm3 (1.2-5.4) L 10/12/20 10:16 Abs React Lymphs (Man) 0.0 K/mm3 10/12/20 10:16 Monocytes # (Manual) 0.5 K/mm3 (0.0-0.8) 10/12/20 10:16 Eosinophils # (Manual) 0.1 K/mm3 (0.0-0.4) 10/12/20 10:16 Basophils # (Manual) 0.1 K/mm3 (0.0-0.1) 10/12/20 10:16 Metamyelocytes # 0.0 K/mm3 10/12/20 10:16 Myelocytes # 0.0 K/mm3 10/12/20 10:16 Promyelocytes # 0.0 K/mm3 10/12/20 10:16 Blast Cells # 0.0 K/mm3 10/12/20 10:16 WBC Morphology Not Reportable 10/12/20 10:16 Hypersegmented Neuts Not Reportable 10/12/20 10:16 Hyposegmented Neuts Not Reportable 10/12/20 10:16 Hypogranular Neuts Not Reportable 10/12/20 10:16 Smudge Cells Not Reportable 10/12/20 10:16 Toxic Granulation Not Reportable 10/12/20 10:16 Toxic Vacuolation Not Reportable 10/12/20 10:16 Dohle Bodies Not Reportable 10/12/20 10:16 Pelger-Huet Anomaly Not Reportable 10/12/20 10:16 Rafita Rods Not Reportable 10/12/20 10:16 Platelet Estimate Not Reportable 10/12/20 10:16 Clumped Platelets Not Reportable 10/12/20 10:16 Plt Clumps, EDTA Not Reportable 10/12/20 10:16 Large Platelets Not Reportable 10/12/20 10:16 Giant Platelets Not Reportable 10/12/20 10:16 Platelet Satelliting Not Reportable 10/12/20 10:16 Plt Morphology Comment Not Reportable 10/12/20 10:16 RBC Morphology Normal 10/12/20 10:16 Dimorphic RBCs Not Reportable 10/12/20 10:16 Polychromasia Not Reportable 10/12/20 10:16 Hypochromasia Not Reportable 10/12/20 10:16 Poikilocytosis Not Reportable 10/12/20 10:16 Anisocytosis Not Reportable 10/12/20 10:16 Microcytosis Not Reportable 10/12/20 10:16 Macrocytosis Not Reportable 10/12/20 10:16 Spherocytes Not Reportable 10/12/20 10:16 Pappenheimer Bodies Not Reportable 10/12/20 10:16 Sickle Cells Not Reportable 10/12/20 10:16 Target Cells Not Reportable 10/12/20 10:16 Tear Drop Cells Not Reportable 10/12/20 10:16 Ovalocytes Not Reportable 10/12/20 10:16 Helmet Cells Not Reportable 10/12/20 10:16 [place] Bodies Not Reportable 10/12/20 10:16 [place] Rings Not Reportable 10/12/20 10:16 [place] Cells Not Reportable 10/12/20 10:16 Bite Cells Not Reportable 10/12/20 10:16 Crenated Cell Not Reportable 10/12/20 10:16 Elliptocytes Not Reportable 10/12/20 10:16 Acanthocytes (Spur) Not Reportable 10/12/20 10:16 Rouleaux Not Reportable 10/12/20 10:16 Hemoglobin C Crystals Not Reportable 10/12/20 10:16 Schistocytes Not Reportable 10/12/20 10:16 Malaria parasites Not Reportable 10/12/20 10:16 Ernie Bodies Not Reportable 10/12/20 10:16 Hem Pathologist Commnt No 10/12/20 10:16 PT 13.9 Sec. (12.2-14.9) 10/12/20 10:16 INR 1.01 (0.87-1.13) 10/12/20 10:16 APTT 22.8 Sec. (24.2-36.6) L 10/12/20 10:16 Thrombin Time 20.0 Sec. (15.1-19.6) H 10/12/20 10:16 D-Dimer 720.38 ng/mlDDU (0-234) H 10/18/20 19:55 Sodium 140 mmol/L (137-145) 10/12/20 10:16 Potassium 3.8 mmol/L (3.6-5.0) 10/12/20 10:16 Chloride 102.9 mmol/L (98-107) 10/12/20 10:16 Carbon Dioxide 30 mmol/L (22-30) 10/12/20 10:16 Anion Gap 11 mmol/L 10/12/20 10:16 BUN 7 mg/dL (7-17) 10/12/20 10:16 Creatinine 0.7 mg/dL (0.6-1.2) 10/12/20 10:16 Estimated GFR > 60 ml/min 10/12/20 10:16 BUN/Creatinine Ratio 10 % 10/12/20 10:16 Glucose 90 mg/dL (65-100) 10/12/20 10:16 POC Glucose 118 mg/dL (70-105) H 10/15/20 11:31 Calcium 9.5 mg/dL (8.4-10.2) 10/12/20 10:16 Ferritin 289.9 ng/mL (10.0-200.0) H 10/18/20 19:54 Total Bilirubin 0.90 mg/dL (0.1-1.2) 10/12/20 10:16 Direct Bilirubin 0.2 mg/dL (0-0.2) 10/12/20 10:16 Indirect Bilirubin 0.7 mg/dL 10/12/20 10:16 AST 23 units/L (5-40) 10/12/20 10:16 ALT 39 units/L (7-56) 10/12/20 10:16 Alkaline Phosphatase 71 units/L (35-129) 10/12/20 10:16 Lactate Dehydrogenase 205 units/L (91-180) H 10/18/20 19:55 Total Creatine Kinase 33 units/L (30-135) 10/12/20 10:16 CK-MB (CK-2) 1.7 ng/mL (0.0-4.0) 10/12/20 10:16 CK-MB (CK-2) Rel Index 5.1 (0-4) H 10/12/20 10:16 Troponin T < 0.010 ng/mL (0.00-0.029) 10/12/20 10:16 C-Reactive Protein 0.70 mg/dL (0.00-1.30) 10/18/20 19:55 Total Protein 6.5 g/dL (6.3-8.2) 10/12/20 10:16 Albumin 3.2 g/dL (3.9-5) L 10/12/20 10:16 Albumin/Globulin Ratio 1.0 % 10/12/20 10:16 Triglycerides 129 mg/dL (2-149) 10/13/20 14:48 Cholesterol 160 mg/dL (50-199) 10/13/20 14:48 LDL Cholesterol Direct 112 mg/dL (50-130) 10/13/20 14:48 HDL Cholesterol 39 mg/dL (40-59) L 10/13/20 14:48 Cholesterol/HDL Ratio 4.10 % 10/13/20 14:48 Coronavirus (PCR) Positive (Negative) A 10/19/20 Unknown Chaney/IV: Voiding Method Bedside Commode Active Medications - Current Medications Current Medications: Generic Name Dose Route Start Last Admin Trade Name Freq PRN Reason Stop Dose Admin Acetaminophen 650 mg 10/12/20 13:00 Acetaminophen 325 Mg Tab PO Q4H PRN Pain, Mild (1-3) Albuterol 2.5 mg 10/12/20 14:00 Albuterol 2.5 Mg/3 Ml Nebu IH Q3HRT PRN Shortness Of Breath Apixaban 5 mg 10/12/20 22:00 10/20/20 09:17 Apixaban 5 Mg Tab PO 5 mg Q12HR ALVARO Administration Aspirin 325 mg 10/13/20 10:00 10/20/20 09:17 Aspirin 325 Mg Tab PO 325 mg QDAY ALVARO Administration Atorvastatin Calcium 40 mg 10/12/20 22:00 10/19/20 21:24 Atorvastatin 40 Mg Tab PO Not Given QHS ALVARO Bisacodyl 10 mg 10/12/20 14:00 [address]acodyl [address] QDAY PRN Constipation Hydromorphone HCl 0.5 mg 10/12/20 13:00 Hydromorphone 1 Mg/1 Ml Inj IV Q12H PRN Pain , Severe (7-10) Magnesium Hydroxide 30 ml 10/12/20 13:00 10/15/20 14:27 Magnesium Hydroxide (Mom) Oral Liqd Udc PO 30 ml Q4H PRN Administration Constipation Metoclopramide HCl 10 mg 10/12/20 14:00 Metoclopramide 10 Mg Tab PO Q6H PRN Nausea And Vomiting Ondansetron HCl 4 mg 10/12/20 13:00 Ondansetron 4 Mg/2 Ml Inj IV Q8H PRN Nausea And Vomiting Oxycodone/Acetaminophen 1 tab 10/12/20 14:00 10/12/20 14:08 Oxycodone /Acetaminophen 5-325mg Tab PO 1 tab Q12H PRN Administration Pain, Moderate (4-6) Paroxetine HCl 20 mg 10/13/20 10:00 10/20/20 09:17 Paroxetine 20 Mg Tab PO 20 mg DAILY ALVARO Administration Promethazine HCl 25 mg 10/12/20 14:00 Promethazine [address] Q6H PRN Nausea And Vomiting Sodium Chloride 10 ml 10/12/20 14:40 10/19/20 10:41 Sodium Chloride 0.9% 10 Ml Flush Syringe IV 10 ml PRN PRN Administration LINE FLUSH Topiramate 25 mg 10/12/20 22:00 10/20/20 09:17 Topiramate Tab 25 Mg Tab PO 25 mg BID ALVARO Administration Nutrition/Malnutrition Assess - Dietary Evaluation Nutrition/Malnutrition Findings: Nutrition Notes Start: 10/15/20 11:42 Freq: Status: Active Protocol: Document 10/18/20 10:05 (Rec: 10/18/20 10:24 [id number]) Nutrition Notes Initial or Follow up Assessment Current Diagnosis Stroke Current Diet Vegan-like diet, Fish okayCardiac Consistent Caarbohydrate Labs/Tests Reviewed Pertinent Medications Reviewed Height 5 ft 9 in Weight 107.3 kg Usual Body Weight 109.09 kg [place] Body Weight (kg) 65.90 BMI 34.9 Weight change and time frame Pt with 1.6% wt loss in 1 week . Weight Status Obese Subjective/Other Information Pt reports not eating well for a week [employer]. Pt now eating 100 % of meals. Pt states she never lost her appetite, she was too weak to cook. Pt does not want ONS Percent of energy/protein needs met: 100%/83% Burn Absent Trauma Absent Current % PO Good (75-100%) Minimum of two criteria Yes Energy Intake (severe) < or equal to 50% Estimated Energy Requirement > or equal to 5 days Interpretation of Weight Loss (non- 1-2% in 1 week severe) #1 Nutrition Diagnosis Malnutrition Etiology acute illness As Evidenced by Signs and Symptoms <50 EER in 5 days, 2% wt loss in one week Is patient on ventilator? No Is Patient Ambulatory and/or Out of Bed Yes REE-([place] or-ambulatory/OOB) [ 2284.594 [id number]] Kcal/Kg value to use for calculation 16 Approximate Energy Requirements Using 1717 kcal/Kg Calculation Used for Recommendations Kcal/kg Additional Notes Protein: (1.2-1.5g/kg AdjBW: 87 kg) 104-131g Fluid: 1 ml/kcal Nutrition Intervention Change Diet Order: continue Add Supplement/Snack (indicate name/kcal d/c /protein ) Goal #1 Continue to meet at least 75% of protein and energy needs Follow-Up By: 10/25/20 Additional Comments F/u: stable intakes
--- NOTE | 2020-10-20 16:23 | Progress Note ---
Assessment and Plan Assessment and plan: --COVID-19 positive Current Visit: Yes Status: Acute Contact and droplet isolation Inflammatory markers Home O2 evaluation ID consult Patient has no hypoxia No indication for remdesivir or steroids Closely monitor -- Acute CVA (cerebrovascular accident) left-sided hemiparesis Current Visit: Yes Status: Acute Not a candidate for TPA Aspirin and statin, extensive neuro work-up reviewed as below Physical therapy, Occupational Therapy, speech therapy Rehabilitation Neurology consulted Neuro work-up so far: CT head without contrast; no acute intracranial abnormality noted CTA head; no evidence of large vessel occlusion stenosis or aneurysm MRI brain; numerous scattered punctate foci of acute infarctions predominantly throughout the right MCA territory right MCA territory CTA neck; unremarkable CTA neck no evidence of large vessel occlusion or stenosis patchy lung infiltrates concerning for atypical pneumonia Carotid Doppler; no hemodynamically significant stenosis Echocardiogram; LV EF: 65 to 70%, No left ventricular thrombus, No VSD, No PFO 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 fib, already on Eliquis Cardiology, neurology following --History of CVA in 2016; with residual left-sided weakness Current Visit: Yes Status: Chronic Continue supportive care, PT OT rehab --Hypertension Current Visit: Yes Status: Chronic Moderate control, continue current antihypertensives and as needed medications --Peripheral neuropathy Current Visit: Yes Status: Chronic Gabapentin and supportive care --History of atrial fibrillation Current Visit: Yes Status: Acute Continue therapeutic anticoagulation, beta-blockers supportive care. --DVT prophylaxis Current Visit: Yes Status: Acute SCD to bilateral lower extremities while in bed, Continue Eliquis Closely monitor patient and adjust management as needed Consults and recommendations noted and appreciated We will closely monitor the patient and adjust management as needed Disposition; awaiting rehab placement Covid test in preparation for rehab placement done today is positive Ms. Rodriguez had many questions, I answered all of them Patient did not need any supplemental oxygen However since patient is Covid we will check home O2 evaluation prior to discharge 10/19/2020; initially patient wanted to go home with home health However today she decided to go to rehab for PT and OT Pending rehab placement Covid test done today is positive Discharge planning per case management History Interval history: I have seen and examined the patient in the room at the bedside Isolation precautions PPE protocols followed Patient with acute CVA with residual defects and COVID-19 Patient feels slightly better still has unsteady gait and severe weakness Vital signs noted Hospitalist Physical - Constitutional Vitals: Temp Pulse Resp BP Pulse Ox 98.0 F 81 22 134/79 98 10/20/20 11:47 10/20/20 11:47 10/20/20 11:47 10/20/20 11:47 10/20/20 11:47 General appearance: Present: no acute distress, well-nourished, obese - EENT Eyes: Present: PERRL, EOM intact - Neck Neck: Present: supple, normal ROM - Respiratory Respiratory effort: normal Respiratory: bilateral: diminished, negative: rales, rhonchi, wheezing - Cardiovascular Rhythm: regular Heart Sounds: Present: S1 & S2 - Extremities Extremities: no ischemia, No edema - Abdominal General gastrointestinal: soft, non-tender, non-distended, normal bowel sounds - Integumentary Integumentary: Present: clear, warm - Psychiatric Psychiatric: appropriate mood/affect, cooperative - Neurologic Neurologic: moves all extremities (Acute CVA with residual weakness) HEART Score - HEART Score Troponin: Troponin T < 0.010 ng/mL (0.00-0.029) 10/12/20 10:16 Results - Labs CBC & Chem 7: 10/12/20 10:16 10/12/20 10:16 Labs: Laboratory Last Values WBC 5.0 K/mm3 (4.5-11.0) 10/12/20 10:16 RBC 4.37 M/mm3 (3.65-5.03) 10/12/20 10:16 Hgb 12.2 gm/dl (10.1-14.3) 10/12/20 10:16 Hct 36.6 % (30.3-42.9) 10/12/20 10:16 MCV 84 fl (79-97) 10/12/20 10:16 MCH 28 pg (28-32) 10/12/20 10:16 MCHC 33 % (30-34) 10/12/20 10:16 RDW 14.0 % (13.2-15.2) 10/12/20 10:16 Plt Count 425 K/mm3 (140-440) 10/12/20 10:16 Add Manual Diff Complete 10/12/20 10:16 Total Counted 100 10/12/20 10:16 Seg Neuts % (Manual) 66.0 % (40.0-70.0) 10/12/20 10:16 Lymphocytes % (Manual) 21.0 % (13.4-35.0) 10/12/20 10:16 Monocytes % (Manual) 10.0 % (0.0-7.3) H 10/12/20 10:16 Eosinophils % (Manual) 2.0 % (0.0-4.3) 10/12/20 10:16 Basophils % (Manual) 1.0 % (0.0-1.8) 10/12/20 10:16 Nucleated RBC % Not Reportable 10/12/20 10:16 Seg Neutrophils # Man 3.3 K/mm3 (1.8-7.7) 10/12/20 10:16 Band Neutrophils # 0.0 K/mm3 10/12/20 10:16 Lymphocytes # (Manual) 1.1 K/mm3 (1.2-5.4) L 10/12/20 10:16 Abs React Lymphs (Man) 0.0 K/mm3 10/12/20 10:16 Monocytes # (Manual) 0.5 K/mm3 (0.0-0.8) 10/12/20 10:16 Eosinophils # (Manual) 0.1 K/mm3 (0.0-0.4) 10/12/20 10:16 Basophils # (Manual) 0.1 K/mm3 (0.0-0.1) 10/12/20 10:16 Metamyelocytes # 0.0 K/mm3 10/12/20 10:16 Myelocytes # 0.0 K/mm3 10/12/20 10:16 Promyelocytes # 0.0 K/mm3 10/12/20 10:16 Blast Cells # 0.0 K/mm3 10/12/20 10:16 WBC Morphology Not Reportable 10/12/20 10:16 Hypersegmented Neuts Not Reportable 10/12/20 10:16 Hyposegmented Neuts Not Reportable 10/12/20 10:16 Hypogranular Neuts Not Reportable 10/12/20 10:16 Smudge Cells Not Reportable 10/12/20 10:16 Toxic Granulation Not Reportable 10/12/20 10:16 Toxic Vacuolation Not Reportable 10/12/20 10:16 Dohle Bodies Not Reportable 10/12/20 10:16 Pelger-Huet Anomaly Not Reportable 10/12/20 10:16 Rafita Rods Not Reportable 10/12/20 10:16 Platelet Estimate Not Reportable 10/12/20 10:16 Clumped Platelets Not Reportable 10/12/20 10:16 Plt Clumps, EDTA Not Reportable 10/12/20 10:16 Large Platelets Not Reportable 10/12/20 10:16 Giant Platelets Not Reportable 10/12/20 10:16 Platelet Satelliting Not Reportable 10/12/20 10:16 Plt Morphology Comment Not Reportable 10/12/20 10:16 RBC Morphology Normal 10/12/20 10:16 Dimorphic RBCs Not Reportable 10/12/20 10:16 Polychromasia Not Reportable 10/12/20 10:16 Hypochromasia Not Reportable 10/12/20 10:16 Poikilocytosis Not Reportable 10/12/20 10:16 Anisocytosis Not Reportable 10/12/20 10:16 Microcytosis Not Reportable 10/12/20 10:16 Macrocytosis Not Reportable 10/12/20 10:16 Spherocytes Not Reportable 10/12/20 10:16 Pappenheimer Bodies Not Reportable 10/12/20 10:16 Sickle Cells Not Reportable 10/12/20 10:16 Target Cells Not Reportable 10/12/20 10:16 Tear Drop Cells Not Reportable 10/12/20 10:16 Ovalocytes Not Reportable 10/12/20 10:16 Helmet Cells Not Reportable 10/12/20 10:16 [place] Bodies Not Reportable 10/12/20 10:16 [place] Rings Not Reportable 10/12/20 10:16 [place] Cells Not Reportable 10/12/20 10:16 Bite Cells Not Reportable 10/12/20 10:16 Crenated Cell Not Reportable 10/12/20 10:16 Elliptocytes Not Reportable 10/12/20 10:16 Acanthocytes (Spur) Not Reportable 10/12/20 10:16 Rouleaux Not Reportable 10/12/20 10:16 Hemoglobin C Crystals Not Reportable 10/12/20 10:16 Schistocytes Not Reportable 10/12/20 10:16 Malaria parasites Not Reportable 10/12/20 10:16 Ernie Bodies Not Reportable 10/12/20 10:16 Hem Pathologist Commnt No 10/12/20 10:16 PT 13.9 Sec. (12.2-14.9) 10/12/20 10:16 INR 1.01 (0.87-1.13) 10/12/20 10:16 APTT 22.8 Sec. (24.2-36.6) L 10/12/20 10:16 Thrombin Time 20.0 Sec. (15.1-19.6) H 10/12/20 10:16 D-Dimer 720.38 ng/mlDDU (0-234) H 10/18/20 19:55 Sodium 140 mmol/L (137-145) 10/12/20 10:16 Potassium 3.8 mmol/L (3.6-5.0) 10/12/20 10:16 Chloride 102.9 mmol/L (98-107) 10/12/20 10:16 Carbon Dioxide 30 mmol/L (22-30) 10/12/20 10:16 Anion Gap 11 mmol/L 10/12/20 10:16 BUN 7 mg/dL (7-17) 10/12/20 10:16 Creatinine 0.7 mg/dL (0.6-1.2) 10/12/20 10:16 Estimated GFR > 60 ml/min 10/12/20 10:16 BUN/Creatinine Ratio 10 % 10/12/20 10:16 Glucose 90 mg/dL (65-100) 10/12/20 10:16 POC Glucose 118 mg/dL (70-105) H 10/15/20 11:31 Calcium 9.5 mg/dL (8.4-10.2) 10/12/20 10:16 Ferritin 289.9 ng/mL (10.0-200.0) H 10/18/20 19:54 Total Bilirubin 0.90 mg/dL (0.1-1.2) 10/12/20 10:16 Direct Bilirubin 0.2 mg/dL (0-0.2) 10/12/20 10:16 Indirect Bilirubin 0.7 mg/dL 10/12/20 10:16 AST 23 units/L (5-40) 10/12/20 10:16 ALT 39 units/L (7-56) 10/12/20 10:16 Alkaline Phosphatase 71 units/L (35-129) 10/12/20 10:16 Lactate Dehydrogenase 205 units/L (91-180) H 10/18/20 19:55 Total Creatine Kinase 33 units/L (30-135) 10/12/20 10:16 CK-MB (CK-2) 1.7 ng/mL (0.0-4.0) 10/12/20 10:16 CK-MB (CK-2) Rel Index 5.1 (0-4) H 10/12/20 10:16 Troponin T < 0.010 ng/mL (0.00-0.029) 10/12/20 10:16 C-Reactive Protein 0.70 mg/dL (0.00-1.30) 10/18/20 19:55 Total Protein 6.5 g/dL (6.3-8.2) 10/12/20 10:16 Albumin 3.2 g/dL (3.9-5) L 10/12/20 10:16 Albumin/Globulin Ratio 1.0 % 10/12/20 10:16 Triglycerides 129 mg/dL (2-149) 10/13/20 14:48 Cholesterol 160 mg/dL (50-199) 10/13/20 14:48 LDL Cholesterol Direct 112 mg/dL (50-130) 10/13/20 14:48 HDL Cholesterol 39 mg/dL (40-59) L 10/13/20 14:48 Cholesterol/HDL Ratio 4.10 % 10/13/20 14:48 Coronavirus (PCR) Positive (Negative) A 10/19/20 Unknown Chaney/IV: Voiding Method Bedside Commode Active Medications - Current Medications Current Medications: Generic Name Dose Route Start Last Admin Trade Name Freq PRN Reason Stop Dose Admin Acetaminophen 650 mg 10/12/20 13:00 Acetaminophen 325 Mg Tab PO Q4H PRN Pain, Mild (1-3) Albuterol 2.5 mg 10/12/20 14:00 Albuterol 2.5 Mg/3 Ml Nebu IH Q3HRT PRN Shortness Of Breath Apixaban 5 mg 10/12/20 22:00 10/20/20 09:17 Apixaban 5 Mg Tab PO 5 mg Q12HR ALVARO Administration Aspirin 325 mg 10/13/20 10:00 10/20/20 09:17 Aspirin 325 Mg Tab PO 325 mg QDAY ALVARO Administration Atorvastatin Calcium 40 mg 10/12/20 22:00 10/19/20 21:24 Atorvastatin 40 Mg Tab PO Not Given QHS ALVARO Bisacodyl 10 mg 10/12/20 14:00 Bisacodyl 10 Mg Rect Supp NJ QDAY PRN Constipation Hydromorphone HCl 0.5 mg 10/12/20 13:00 Hydromorphone 1 Mg/1 Ml Inj IV Q12H PRN Pain , Severe (7-10) Magnesium Hydroxide 30 ml 10/12/20 13:00 10/15/20 14:27 Magnesium Hydroxide (Mom) Oral Liqd Udc PO 30 ml Q4H PRN Administration Constipation Metoclopramide HCl 10 mg 10/12/20 14:00 Metoclopramide 10 Mg Tab PO Q6H PRN Nausea And Vomiting Ondansetron HCl 4 mg 10/12/20 13:00 Ondansetron 4 Mg/2 Ml Inj IV Q8H PRN Nausea And Vomiting Oxycodone/Acetaminophen 1 tab 10/12/20 14:00 10/12/20 14:08 Oxycodone /Acetaminophen 5-325mg Tab PO 1 tab Q12H PRN Administration Pain, Moderate (4-6) Paroxetine HCl 20 mg 10/13/20 10:00 10/20/20 09:17 Paroxetine 20 Mg Tab PO 20 mg DAILY ALVARO Administration Promethazine HCl 25 mg 10/12/20 14:00 Promethazine 25 Mg Rect Supp NJ Q6H PRN Nausea And Vomiting Sodium Chloride 10 ml 10/12/20 14:40 10/19/20 10:41 Sodium Chloride 0.9% 10 Ml Flush Syringe IV 10 ml PRN PRN Administration LINE FLUSH Topiramate 25 mg 10/12/20 22:00 10/20/20 09:17 Topiramate Tab 25 Mg Tab PO 25 mg BID ALVARO Administration Nutrition/Malnutrition Assess - Dietary Evaluation Nutrition/Malnutrition Findings: Nutrition Notes Start: 10/15/20 11:42 Freq: Status: Active Protocol: Document 10/18/20 10:05 (Rec: 10/18/20 10:24 [id number]) Nutrition Notes Initial or Follow up Assessment Current Diagnosis Stroke Current Diet Vegan-like diet, Fish okayCardiac Consistent Caarbohydrate Labs/Tests Reviewed Pertinent Medications Reviewed Height 5 ft 9 in Weight 107.3 kg Usual Body Weight 109.09 kg [place] Body Weight (kg) 65.90 BMI 34.9 Weight change and time frame Pt with 1.6% wt loss in 1 week . Weight Status Obese Subjective/Other Information Pt reports not eating well for a week [employer]. Pt now eating 100 % of meals. Pt states she never lost her appetite, she was too weak to cook. Pt does not want ONS Percent of energy/protein needs met: 100%/83% Burn Absent Trauma Absent Current % PO Good (75-100%) Minimum of two criteria Yes Energy Intake (severe) < or equal to 50% Estimated Energy Requirement > or equal to 5 days Interpretation of Weight Loss (non- 1-2% in 1 week severe) #1 Nutrition Diagnosis Malnutrition Etiology acute illness As Evidenced by Signs and Symptoms <50 EER in 5 days, 2% wt loss in one week Is patient on ventilator? No Is Patient Ambulatory and/or Out of Bed Yes REE-([place] or-ambulatory/OOB) [ 2284.594 [id number]] Kcal/Kg value to use for calculation 16 Approximate Energy Requirements Using 1717 kcal/Kg Calculation Used for Recommendations Kcal/kg Additional Notes Protein: (1.2-1.5g/kg AdjBW: 87 kg) 104-131g Fluid: 1 ml/kcal Nutrition Intervention Change Diet Order: continue Add Supplement/Snack (indicate name/kcal d/c /protein ) Goal #1 Continue to meet at least 75% of protein and energy needs Follow-Up By: 10/25/20 Additional Comments F/u: stable intakes
[2020-10-21] MEDS: TOPIRAMATE TAB 25 MG TAB PO SCH ×2 (11:45→22:32)
[2020-10-21] MEDS: PARoxetine 20 MG TAB PO SCH (11:45)
[2020-10-21] MEDS: ASPIRIN 325 MG TAB PO SCH (11:45)
[2020-10-21] MEDS: APIXABAN 5 MG TAB PO SCH ×2 (11:45→22:32)
--- NOTE | 2020-10-21 13:31 | Discharge Summary ---
Providers - Providers Date of Admission: 10/13/20 15:11 Date of discharge: 10/24/20 Attending physician: ALEE JACOB 10/12/20 12:37 Occupational Therapy Evaluate and Treat [CONS] Routine Comment: Reason For Exam: Neuro deficits Physical Therapy Evaluation and Treat [CONS] Routine Comment: Reason For Exam: Neuro deficits 10/12/20 12:38 Speech Therapy Evaluation and Treat [CONS] Routine Reason For Exam: swallow eval 10/13/20 14:17 Consult to Physician [CONS] Routine Comment: Consulting Provider: DIANA RIOS Physician Instructions: Reason For Exam: Strokelike symptoms/TIA/CVA Hospitalization Reason for admission: Sudden left-sided weakness/acute CVA Condition: Stable Pertinent studies: CT head without contrast; no acute intracranial abnormality noted CTA head; no evidence of large vessel occlusion stenosis or aneurysm MRI brain; numerous scattered punctate foci of acute infarctions predominantly throughout the right MCA territory right MCA territory CTA neck; unremarkable CTA neck no evidence of large vessel occlusion or stenosis patchy lung infiltrates concerning for atypical pneumonia Carotid Doppler; no hemodynamically significant stenosis Echocardiogram; LV EF: 65 to 70%, No left ventricular thrombus, No VSD, No PFO Hospital course: 49-year-old obese -[place] female patient with significant past medical history of CVA with residual weakness in 2016 was admitted through emergency room with sudden onset of left-sided weakness Patient is not a candidate for TPA, however admitted to the hospital appropriately managed evaluated by neurology had extensive neuro work-up as mentioned above patient was also high risk for PUI high risk for Covid admitted as PUI pat[place] PCR test on 10/13/2020 was positive Patient was not hypoxemic did not require steroid or remdesivir, throughout the hospital stay patient saturating well on room air Neurology recommended PT OT and rehabilitation Case management was processing the discharge planning, recommended home with home health services with home PT and home OT Today patient is comfortable no new complaints vital signs stable Working well with the physical therapy with severe weakness on the left side Case management set up home health home PT home OT per protocols Today patient is hemodynamically stable Cleared for discharge and follow-up with primary care physician, private neurologist Patient is stable at discharge, Covid test was repeated remained positive on 10/19/2020 Strictly advised to follow-up COVID-19 precautions and protocols per CDC guidelines Discharge diagnosis: --COVID-19 positive; 10/13/2020 and 10/19/2020 Current Visit: Yes Status: Acute Contact and droplet isolation Inflammatory markers Home O2 evaluation ID consult Patient has no hypoxia No indication for remdesivir or steroids Closely monitor -- Acute CVA (cerebrovascular accident) left-sided hemiparesis Current Visit: Yes Status: Acute Not a candidate for TPA Aspirin and statin, extensive neuro work-up reviewed as below Physical therapy, Occupational Therapy, speech therapy Rehabilitation Neurology consulted Neuro work-up so far: CT head without contrast; no acute intracranial abnormality noted CTA head; no evidence of large vessel occlusion stenosis or aneurysm MRI brain; numerous scattered punctate foci of acute infarctions predominantly throughout the right MCA territory right MCA territory CTA neck; unremarkable CTA neck no evidence of large vessel occlusion or stenosis patchy lung infiltrates concerning for atypical pneumonia Carotid Doppler; no hemodynamically significant stenosis Echocardiogram; LV EF: 65 to 70%, No left ventricular thrombus, No VSD, No PFO 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 fib, already on Eliquis Cardiology, neurology following --History of CVA in 2016; with residual left-sided weakness Current Visit: Yes Status: Chronic Continue supportive care, PT OT rehab --Hypertension Current Visit: Yes Status: Chronic Moderate control, continue current antihypertensives and as needed medications --Peripheral neuropathy Current Visit: Yes Status: Chronic Gabapentin and supportive care --Dyslipidemia Current Visit: Yes Status: Chronic Low-cholesterol diet and statin --Moderate malnutrition/hypoalbuminemia Current Visit: Yes Status: Chronic Nutrition supplements supportive care --History of atrial fibrillation Current Visit: Yes Status: Acute Continue therapeutic anticoagulation, beta-blockers supportive care. --Chronic anticoagulation with Eliquis Current Visit: Yes Status: Acute Continue Eliquis per schedule --Obesity; BMI 34.9 Patient need to exercise as tolerated and weight reduction when medically stable --DVT prophylaxis Current Visit: Yes Status: Acute SCD to bilateral lower extremities while in bed, Continue Eliquis Stable at discharge Disposition: 06 HOME HEALTH CARE SERVICE Final Discharge Diagnosis (Prints w/discharge instructions): COVID-19 infection. Acute CVA with left-sided hemiparesis. History of CVA 2016 with residual weakness. Hypertension. Peripheral neuropathy. Atrial fibrillation. Long- term anticoagulation. Obesity BMI 34.9. Dyslipidemia. Moderate malnutrition. Moderate hypoalbuminemia Time spent for discharge: 35 min Core Measure Documentation - Palliative Care Palliative Care/ Comfort Measures: Not Applicable - Core Measures Any of the following diagnoses?: stroke - Stroke Discharge Requirements Statin for LDL = or >70 mg/dl on DC: Yes Anticoag for atrial fib/atrial flutter: Yes Antithrombotic for ischemic stroke: Yes Exam - Constitutional Vitals: Temp Pulse Resp BP Pulse Ox 98.8 F 78 22 136/88 95 10/21/20 11:36 10/21/20 11:36 10/21/20 11:36 10/21/20 11:36 10/21/20 11:36 General appearance: Present: no acute distress, well-nourished - EENT Eyes: Present: PERRL, EOM intact ENT: hearing intact, clear oral mucosa - Neck Neck: Present: supple, normal ROM - Respiratory Respiratory effort: normal Respiratory: bilateral: diminished, rhonchi, negative: rales, wheezing - Cardiovascular Rhythm: regular Heart Sounds: Present: S1 & S2 - Extremities Extremities: no ischemia, No edema - Abdominal General gastrointestinal: Present: soft, non-tender, non-distended, normal bowel sounds - Integumentary Integumentary: Present: clear, warm - Musculoskeletal Musculoskeletal: strength equal bilaterally - Psychiatric Psychiatric: appropriate mood/affect, cooperative - Neurologic Neurologic: other (Acute CVA with left-sided hemiparesis) Plan Activity: advance as tolerated, fall precautions Diet: other (Cardiac diet) Special Instructions: physical therapy, occupational therapy Additional Instructions: Patient advised to follow your private [facility] neurologist in 1 week. Fall precautions. If you have worsening symptoms contact MD or go to the nearest emergency room as needed. Strictly follow COVID-19 instructions/guidelines/masking/isolation/self quarantine as the instruction given to you by discharge nurse. Follow up with: MATHEUS DAVIDSON [Other] - 7 Days MAUREEN DIAZ MD [Staff Physician] - 7 Days Prescriptions: Apixaban [Eliquis] 5 mg PO Q12H #60 Aspirin EC [Halfprin EC] 81 mg PO QDAY #30 tablet. AtorvaSTATin [Lipitor] 40 mg PO QHS #30 tablet oxyCODONE /ACETAMINOPHEN [Percocet 5/325 mg] 1 tab PO Q12H PRN #10 tablet PRN Reason: Pain, Moderate (4-6) Ascorbic Acid [Vitamin C chew] 500 mg PO BID #60 tab.chew Cholecalciferol Vit D3 [Vitamin D3 1,000 UNIT TAB] 1,000 unit PO QDAY #30 tablet Zinc Sulfate [Zinc] 220 mg PO BID #60 tablet Other Discharge Orders: Bedside Commode Amb) Location: None Selected Shower Chair (Amb) Location: None Selected Walker-Rolling (Amb) Location: None Selected
--- NOTE | 2020-10-21 15:47 | Progress Note ---
Assessment and Plan Assessment and plan: Case management has recommended home with home health during the length of stay meeting today, Discharge was planned, however As patient has left-sided hemiparesis, with left foot drop, poor mobility patient would benefit from acute/subacute/SNF placement I reviewed all the physical therapy evaluation recommendations And all the Occupational Therapy evaluation recommendations They have always recommended acute rehab/subacute Discussed with the case management, will hold the discharge And process acute /subacute rehab placement. --COVID-19 positive x2 Current Visit: Yes Status: Acute Contact and droplet isolation Inflammatory markers Home O2 evaluation ID consult Patient has no hypoxia No indication for remdesivir or steroids Closely monitor -- Acute CVA (cerebrovascular accident) left-sided hemiparesis Current Visit: Yes Status: Acute Not a candidate for TPA Aspirin and statin, extensive neuro work-up reviewed as below Physical therapy, Occupational Therapy, speech therapy Rehabilitation, Neurology evaluated the patient Neuro work-up so far: CT head without contrast; no acute intracranial abnormality noted CTA head; no evidence of large vessel occlusion stenosis or aneurysm MRI brain; numerous scattered punctate foci of acute infarctions predominantly throughout the right MCA territory right MCA territory CTA neck; unremarkable CTA neck no evidence of large vessel occlusion or stenosis patchy lung infiltrates concerning for atypical pneumonia Carotid Doppler; no hemodynamically significant stenosis Echocardiogram; LV EF: 65 to 70%, No left ventricular thrombus, No VSD, No PFO 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 fib, already on Eliquis Cardiology, neurology following --History of CVA in 2016; with residual left-sided weakness Current Visit: Yes Status: Chronic Continue supportive care, PT OT rehab --Hypertension Current Visit: Yes Status: Chronic Moderate control, continue current antihypertensives and as needed medications --Peripheral neuropathy Current Visit: Yes Status: Chronic Gabapentin and supportive care --History of atrial fibrillation Current Visit: Yes Status: Acute Continue therapeutic anticoagulation, beta-blockers supportive care. --DVT prophylaxis Current Visit: Yes Status: Acute SCD to bilateral lower extremities while in bed, Continue Eliquis Closely monitor patient and adjust management as needed Consults and recommendations noted and appreciated We will closely monitor the patient and adjust management as needed Disposition; awaiting rehab placement Covid test in preparation for rehab placement done today is positive Ms. Rodriguez had many questions, I answered all of them Patient did not need any supplemental oxygen However since patient is Covid we will check home O2 evaluation prior to discharge 10/19/2020; initially patient wanted to go home with home health However today she decided to go to rehab for PT and OT Pending rehab placement Covid test done today is positive Discharge planning per case management 10/20/2020; PT OT recommended acute rehab placement DC planning per case management Repeat Covid test yesterday 10/19/2020 is positive 10/21/2020; discharge held In view of patient's severe mobility issues due to left hemiparesis and left foot drop As per PT and OT recommendation we will plan for placement acute vs subacute vs SNF DC planning per case management History Interval history: I have seen and examined the patient Patient feels better Discharge held Patient complains of severe weakness on the left side Unable to walk Vital signs noted Hospitalist Physical - Constitutional Vitals: Temp Pulse Resp BP Pulse Ox 98.8 F 78 22 136/88 95 10/21/20 11:36 10/21/20 11:36 10/21/20 11:36 10/21/20 11:36 10/21/20 11:36 General appearance: Present: mild distress, well-nourished, obese - EENT Eyes: Present: PERRL, EOM intact - Neck Neck: Present: supple, normal ROM - Respiratory Respiratory effort: normal Respiratory: bilateral: diminished, negative: rales, rhonchi, wheezing - Cardiovascular Rhythm: regular Heart Sounds: Present: S1 & S2 - Extremities Extremities: no ischemia, No edema - Abdominal General gastrointestinal: soft, non-tender, non-distended, normal bowel sounds - Integumentary Integumentary: Present: clear, warm - Psychiatric Psychiatric: appropriate mood/affect, cooperative - Neurologic Neurologic: other (Left-sided hemiparesis) HEART Score - HEART Score Troponin: Troponin T < 0.010 ng/mL (0.00-0.029) 10/12/20 10:16 Results - Labs CBC & Chem 7: 10/12/20 10:16 10/12/20 10:16 Labs: Laboratory Last Values WBC 5.0 K/mm3 (4.5-11.0) 10/12/20 10:16 RBC 4.37 M/mm3 (3.65-5.03) 10/12/20 10:16 Hgb 12.2 gm/dl (10.1-14.3) 10/12/20 10:16 Hct 36.6 % (30.3-42.9) 10/12/20 10:16 MCV 84 fl (79-97) 10/12/20 10:16 MCH 28 pg (28-32) 10/12/20 10:16 MCHC 33 % (30-34) 10/12/20 10:16 RDW 14.0 % (13.2-15.2) 10/12/20 10:16 Plt Count 425 K/mm3 (140-440) 10/12/20 10:16 Add Manual Diff Complete 10/12/20 10:16 Total Counted 100 10/12/20 10:16 Seg Neuts % (Manual) 66.0 % (40.0-70.0) 10/12/20 10:16 Lymphocytes % (Manual) 21.0 % (13.4-35.0) 10/12/20 10:16 Monocytes % (Manual) 10.0 % (0.0-7.3) H 10/12/20 10:16 Eosinophils % (Manual) 2.0 % (0.0-4.3) 10/12/20 10:16 Basophils % (Manual) 1.0 % (0.0-1.8) 10/12/20 10:16 Nucleated RBC % Not Reportable 10/12/20 10:16 Seg Neutrophils # Man 3.3 K/mm3 (1.8-7.7) 10/12/20 10:16 Band Neutrophils # 0.0 K/mm3 10/12/20 10:16 Lymphocytes # (Manual) 1.1 K/mm3 (1.2-5.4) L 10/12/20 10:16 Abs React Lymphs (Man) 0.0 K/mm3 10/12/20 10:16 Monocytes # (Manual) 0.5 K/mm3 (0.0-0.8) 10/12/20 10:16 Eosinophils # (Manual) 0.1 K/mm3 (0.0-0.4) 10/12/20 10:16 Basophils # (Manual) 0.1 K/mm3 (0.0-0.1) 10/12/20 10:16 Metamyelocytes # 0.0 K/mm3 10/12/20 10:16 Myelocytes # 0.0 K/mm3 10/12/20 10:16 Promyelocytes # 0.0 K/mm3 10/12/20 10:16 Blast Cells # 0.0 K/mm3 10/12/20 10:16 WBC Morphology Not Reportable 10/12/20 10:16 Hypersegmented Neuts Not Reportable 10/12/20 10:16 Hyposegmented Neuts Not Reportable 10/12/20 10:16 Hypogranular Neuts Not Reportable 10/12/20 10:16 Smudge Cells Not Reportable 10/12/20 10:16 Toxic Granulation Not Reportable 10/12/20 10:16 Toxic Vacuolation Not Reportable 10/12/20 10:16 Dohle Bodies Not Reportable 10/12/20 10:16 Pelger-Huet Anomaly Not Reportable 10/12/20 10:16 Rafita Rods Not Reportable 10/12/20 10:16 Platelet Estimate Not Reportable 10/12/20 10:16 Clumped Platelets Not Reportable 10/12/20 10:16 Plt Clumps, EDTA Not Reportable 10/12/20 10:16 Large Platelets Not Reportable 10/12/20 10:16 Giant Platelets Not Reportable 10/12/20 10:16 Platelet Satelliting Not Reportable 10/12/20 10:16 Plt Morphology Comment Not Reportable 10/12/20 10:16 RBC Morphology Normal 10/12/20 10:16 Dimorphic RBCs Not Reportable 10/12/20 10:16 Polychromasia Not Reportable 10/12/20 10:16 Hypochromasia Not Reportable 10/12/20 10:16 Poikilocytosis Not Reportable 10/12/20 10:16 Anisocytosis Not Reportable 10/12/20 10:16 Microcytosis Not Reportable 10/12/20 10:16 Macrocytosis Not Reportable 10/12/20 10:16 Spherocytes Not Reportable 10/12/20 10:16 Pappenheimer Bodies Not Reportable 10/12/20 10:16 Sickle Cells Not Reportable 10/12/20 10:16 Target Cells Not Reportable 10/12/20 10:16 Tear Drop Cells Not Reportable 10/12/20 10:16 Ovalocytes Not Reportable 10/12/20 10:16 Helmet Cells Not Reportable 10/12/20 10:16 Goel-[place] Bodies Not Reportable 10/12/20 10:16 Dorado Rings Not Reportable 10/12/20 10:16 [place] Cells Not Reportable 10/12/20 10:16 Bite Cells Not Reportable 10/12/20 10:16 Crenated Cell Not Reportable 10/12/20 10:16 Elliptocytes Not Reportable 10/12/20 10:16 Acanthocytes (Spur) Not Reportable 10/12/20 10:16 Rouleaux Not Reportable 10/12/20 10:16 Hemoglobin C Crystals Not Reportable 10/12/20 10:16 Schistocytes Not Reportable 10/12/20 10:16 Malaria parasites Not Reportable 10/12/20 10:16 Ernie Bodies Not Reportable 10/12/20 10:16 Hem Pathologist Commnt No 10/12/20 10:16 PT 13.9 Sec. (12.2-14.9) 10/12/20 10:16 INR 1.01 (0.87-1.13) 10/12/20 10:16 APTT 22.8 Sec. (24.2-36.6) L 10/12/20 10:16 Thrombin Time 20.0 Sec. (15.1-19.6) H 10/12/20 10:16 D-Dimer 720.38 ng/mlDDU (0-234) H 10/18/20 19:55 Sodium 140 mmol/L (137-145) 10/12/20 10:16 Potassium 3.8 mmol/L (3.6-5.0) 10/12/20 10:16 Chloride 102.9 mmol/L (98-107) 10/12/20 10:16 Carbon Dioxide 30 mmol/L (22-30) 10/12/20 10:16 Anion Gap 11 mmol/L 10/12/20 10:16 BUN 7 mg/dL (7-17) 10/12/20 10:16 Creatinine 0.7 mg/dL (0.6-1.2) 10/12/20 10:16 Estimated GFR > 60 ml/min 10/12/20 10:16 BUN/Creatinine Ratio 10 % 10/12/20 10:16 Glucose 90 mg/dL (65-100) 10/12/20 10:16 POC Glucose 118 mg/dL (70-105) H 10/15/20 11:31 Calcium 9.5 mg/dL (8.4-10.2) 10/12/20 10:16 Ferritin 289.9 ng/mL (10.0-200.0) H 10/18/20 19:54 Total Bilirubin 0.90 mg/dL (0.1-1.2) 10/12/20 10:16 Direct Bilirubin 0.2 mg/dL (0-0.2) 10/12/20 10:16 Indirect Bilirubin 0.7 mg/dL 10/12/20 10:16 AST 23 units/L (5-40) 10/12/20 10:16 ALT 39 units/L (7-56) 10/12/20 10:16 Alkaline Phosphatase 71 units/L (35-129) 10/12/20 10:16 Lactate Dehydrogenase 205 units/L (91-180) H 10/18/20 19:55 Total Creatine Kinase 33 units/L (30-135) 10/12/20 10:16 CK-MB (CK-2) 1.7 ng/mL (0.0-4.0) 10/12/20 10:16 CK-MB (CK-2) Rel Index 5.1 (0-4) H 10/12/20 10:16 Troponin T < 0.010 ng/mL (0.00-0.029) 10/12/20 10:16 C-Reactive Protein 0.70 mg/dL (0.00-1.30) 10/18/20 19:55 Total Protein 6.5 g/dL (6.3-8.2) 10/12/20 10:16 Albumin 3.2 g/dL (3.9-5) L 10/12/20 10:16 Albumin/Globulin Ratio 1.0 % 10/12/20 10:16 Triglycerides 129 mg/dL (2-149) 10/13/20 14:48 Cholesterol 160 mg/dL (50-199) 10/13/20 14:48 LDL Cholesterol Direct 112 mg/dL (50-130) 10/13/20 14:48 HDL Cholesterol 39 mg/dL (40-59) L 10/13/20 14:48 Cholesterol/HDL Ratio 4.10 % 10/13/20 14:48 Coronavirus (PCR) Positive (Negative) A 10/19/20 Unknown Chaney/IV: Voiding Method Bedside Commode Active Medications - Current Medications Current Medications: Generic Name Dose Route Start Last Admin Trade Name Freq PRN Reason Stop Dose Admin Acetaminophen 650 mg 10/12/20 13:00 Acetaminophen 325 Mg Tab PO Q4H PRN Pain, Mild (1-3) Albuterol 2.5 mg 10/12/20 14:00 Albuterol 2.5 Mg/3 Ml Nebu IH Q3HRT PRN Shortness Of Breath Apixaban 5 mg 10/12/20 22:00 10/21/20 11:45 Apixaban 5 Mg Tab PO 5 mg Q12HR ALVARO Administration Aspirin 325 mg 10/13/20 10:00 10/21/20 11:45 Aspirin 325 Mg Tab PO 325 mg QDAY ALVARO Administration Atorvastatin Calcium 40 mg 10/12/20 22:00 10/20/20 22:00 Atorvastatin 40 Mg Tab PO 40 mg QHS ALVARO Administration Bisacodyl 10 mg 10/12/20 14:00 Bisacodyl 10 Mg Rect Supp OR QDAY PRN Constipation Hydromorphone HCl 0.5 mg 10/12/20 13:00 Hydromorphone 1 Mg/1 Ml Inj IV Q12H PRN Pain , Severe (7-10) Magnesium Hydroxide 30 ml 10/12/20 13:00 10/15/20 14:27 Magnesium Hydroxide (Mom) Oral Liqd Udc PO 30 ml Q4H PRN Administration Constipation Metoclopramide HCl 10 mg 10/12/20 14:00 Metoclopramide 10 Mg Tab PO Q6H PRN Nausea And Vomiting Ondansetron HCl 4 mg 10/12/20 13:00 Ondansetron 4 Mg/2 Ml Inj IV Q8H PRN Nausea And Vomiting Oxycodone/Acetaminophen 1 tab 10/12/20 14:00 10/12/20 14:08 Oxycodone /Acetaminophen 5-325mg Tab PO 1 tab Q12H PRN Administration Pain, Moderate (4-6) Paroxetine HCl 20 mg 10/13/20 10:00 10/21/20 11:45 Paroxetine 20 Mg Tab PO 20 mg DAILY ALVARO Administration Promethazine HCl 25 mg 10/12/20 14:00 Promethazine 25 Mg Rect Supp OR Q6H PRN Nausea And Vomiting Sodium Chloride 10 ml 10/12/20 14:40 10/19/20 10:41 Sodium Chloride 0.9% 10 Ml Flush Syringe IV 10 ml PRN PRN Administration LINE FLUSH Topiramate 25 mg 10/12/20 22:00 10/21/20 11:45 Topiramate Tab 25 Mg Tab PO 25 mg BID ALVARO Administration Nutrition/Malnutrition Assess - Dietary Evaluation Nutrition/Malnutrition Findings: Nutrition Notes Start: 10/15/20 11:42 Freq: Status: Active Protocol: Document 10/18/20 10:05 (Rec: 10/18/20 10:24 [id number]) Nutrition Notes Initial or Follow up Assessment Current Diagnosis Stroke Current Diet Vegan-like diet, Fish okayCardiac Consistent Caarbohydrate Labs/Tests Reviewed Pertinent Medications Reviewed Height 5 ft 9 in Weight 107.3 kg Usual Body Weight 109.09 kg Roberts Body Weight (kg) 65.90 BMI 34.9 Weight change and time frame Pt with 1.6% wt loss in 1 week . 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 Pt now eating 100 % of meals. Pt states she never lost her appetite, she was too weak to cook. Pt does not want ONS Percent of energy/protein needs met: 100%/83% Burn Absent Trauma Absent Current % PO Good (75-100%) Minimum of two criteria Yes Energy Intake (severe) < or equal to 50% Estimated Energy Requirement > or equal to 5 days Interpretation of Weight Loss (non- 1-2% in 1 week severe) #1 Nutrition Diagnosis Malnutrition Etiology acute illness As Evidenced by Signs and Symptoms <50 EER in 5 days, 2% wt loss in one week Is patient on ventilator? No Is Patient Ambulatory and/or Out of Bed Yes REE-([place]-St. Jeor-ambulatory/OOB) [ 2284.594 NUTR.[id number]] Kcal/Kg value to use for calculation 16 Approximate Energy Requirements Using 1717 kcal/Kg Calculation Used for Recommendations Kcal/kg Additional Notes Protein: (1.2-1.5g/kg AdjBW: 87 kg) 104-131g Fluid: 1 ml/kcal Nutrition Intervention Change Diet Order: continue Add Supplement/Snack (indicate name/kcal d/c /protein ) Goal #1 Continue to meet at least 75% of protein and energy needs Follow-Up By: 10/25/20 Additional Comments F/u: stable intakes
[2020-10-22] MEDS: ASPIRIN 325 MG TAB PO SCH (10:31)
[2020-10-22] MEDS: PARoxetine 20 MG TAB PO SCH (10:31)
[2020-10-22] MEDS: TOPIRAMATE TAB 25 MG TAB PO SCH ×2 (10:31→22:36)
[2020-10-22] MEDS: APIXABAN 5 MG TAB PO SCH ×2 (10:31→22:36)
--- NOTE | 2020-10-22 13:03 | Progress Note ---
Assessment and Plan Assessment and plan: Case management has recommended home with home health during the length of stay meeting today, Discharge was planned, however As has left-sided hemiparesis, with left foot drop, poor mobility patient would benefit from acute/subacute/SNF placement I reviewed all the physical therapy evaluation recommendations And all the Occupational Therapy evaluation recommendations They have always recommended acute rehab/subacute Discussed with the case management, will hold the discharge And process acute /subacute rehab placement. --COVID-19 positive x2 Current Visit: Yes Status: Acute Contact and droplet isolation Inflammatory markers Home O2 evaluation ID consult Patient has no hypoxia No indication for remdesivir or steroids Closely monitor -- Acute CVA (cerebrovascular accident) left-sided hemiparesis Current Visit: Yes Status: Acute Not a candidate for TPA Aspirin and statin, extensive neuro work-up reviewed as below Physical therapy, Occupational Therapy, speech therapy Rehabilitation, Neurology evaluated the patient Neuro work-up so far: CT head without contrast; no acute intracranial abnormality noted CTA head; no evidence of large vessel occlusion stenosis or aneurysm MRI brain; numerous scattered punctate foci of acute infarctions predominantly throughout the right MCA territory right MCA territory CTA neck; unremarkable CTA neck no evidence of large vessel occlusion or stenosis patchy lung infiltrates concerning for atypical pneumonia Carotid Doppler; no hemodynamically significant stenosis Echocardiogram; LV EF: 65 to 70%, No left ventricular thrombus, No VSD, No PFO 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 fib, already on Eliquis Cardiology, neurology following --History of CVA in 2016; with residual left-sided weakness Current Visit: Yes Status: Chronic Continue supportive care, PT OT rehab --Hypertension Current Visit: Yes Status: Chronic Moderate control, continue current antihypertensives and as needed medications --Peripheral neuropathy Current Visit: Yes Status: Chronic Gabapentin and supportive care --History of atrial fibrillation Current Visit: Yes Status: Acute Continue therapeutic anticoagulation, beta-blockers supportive care. --DVT prophylaxis Current Visit: Yes Status: Acute SCD to bilateral lower extremities while in bed, Continue Eliquis Closely monitor patient and adjust management as needed Consults and recommendations noted and appreciated We will closely monitor the patient and adjust management as needed Disposition; awaiting rehab placement Covid test in preparation for rehab placement done today is positive Ms. Rodriguez had many questions, I answered all of them Patient did not need any supplemental oxygen However since patient is Covid we will check home O2 evaluation prior to di kristinarroni 10/19/2020; initially patient wanted to go home with home health However today she decided to go to rehab for PT and OT Pending rehab placement Covid test done today is positive Discharge planning per case management 10/20/2020; PT OT recommended acute rehab placement DC planning per case management Repeat Covid test yesterday 10/19/2020 is positive 10/21/2020; discharge held In view of patient's severe mobility issues due to left hemiparesis and left foot drop As per PT and OT recommendation we will plan for placement acute vs subacute vs SNF DC planning per case management 10/22/2020; Awaiting SNF placement, DC planning per case management Continue Covid guideline treatment, PT as tolerated History Interval history: I seen and examined the patient at the bedside Patient's chart and medications reviewed Patient has no new complaints Vital signs noted Hospitalist Physical - Constitutional Vitals: Temp Pulse Resp BP Pulse Ox 98.3 F 54 L 18 133/80 95 10/22/20 04:36 10/22/20 04:36 10/22/20 04:36 10/22/20 04:36 10/22/20 04:36 General appearance: Present: mild distress, well-nourished, obese - EENT Eyes: Present: PERRL, EOM intact - Neck Neck: Present: supple, normal ROM - Respiratory Respiratory effort: normal Respiratory: bilateral: diminished, negative: rales, rhonchi, wheezing - Cardiovascular Rhythm: regular Heart Sounds: Present: S1 & S2 - Extremities Extremities: no ischemia, No edema - Abdominal General gastrointestinal: soft, non-tender, non-distended, normal bowel sounds - Integumentary Integumentary: Present: clear, warm - Psychiatric Psychiatric: appropriate mood/affect, cooperative - Neurologic Neurologic: CNII-XII intact, moves all extremities HEART Score - HEART Score Troponin: Troponin T < 0.010 ng/mL (0.00-0.029) 10/12/20 10:16 Results - Labs CBC & Chem 7: 10/12/20 10:16 10/12/20 10:16 Labs: Laboratory Last Values WBC 5.0 K/mm3 (4.5-11.0) 10/12/20 10:16 RBC 4.37 M/mm3 (3.65-5.03) 10/12/20 10:16 Hgb 12.2 gm/dl (10.1-14.3) 10/12/20 10:16 Hct 36.6 % (30.3-42.9) 10/12/20 10:16 MCV 84 fl (79-97) 10/12/20 10:16 MCH 28 pg (28-32) 10/12/20 10:16 MCHC 33 % (30-34) 10/12/20 10:16 RDW 14.0 % (13.2-15.2) 10/12/20 10:16 Plt Count 425 K/mm3 (140-440) 10/12/20 10:16 Add Manual Diff Complete 10/12/20 10:16 Total Counted 100 10/12/20 10:16 Seg Neuts % (Manual) 66.0 % (40.0-70.0) 10/12/20 10:16 Lymphocytes % (Manual) 21.0 % (13.4-35.0) 10/12/20 10:16 Monocytes % (Manual) 10.0 % (0.0-7.3) H 10/12/20 10:16 Eosinophils % (Manual) 2.0 % (0.0-4.3) 10/12/20 10:16 Basophils % (Manual) 1.0 % (0.0-1.8) 10/12/20 10:16 Nucleated RBC % Not Reportable 10/12/20 10:16 Seg Neutrophils # Man 3.3 K/mm3 (1.8-7.7) 10/12/20 10:16 Band Neutrophils # 0.0 K/mm3 10/12/20 10:16 Lymphocytes # (Manual) 1.1 K/mm3 (1.2-5.4) L 10/12/20 10:16 Abs React Lymphs (Man) 0.0 K/mm3 10/12/20 10:16 Monocytes # (Manual) 0.5 K/mm3 (0.0-0.8) 10/12/20 10:16 Eosinophils # (Manual) 0.1 K/mm3 (0.0-0.4) 10/12/20 10:16 Basophils # (Manual) 0.1 K/mm3 (0.0-0.1) 10/12/20 10:16 Metamyelocytes # 0.0 K/mm3 10/12/20 10:16 Myelocytes # 0.0 K/mm3 10/12/20 10:16 Promyelocytes # 0.0 K/mm3 10/12/20 10:16 Blast Cells # 0.0 K/mm3 10/12/20 10:16 WBC Morphology Not Reportable 10/12/20 10:16 Hypersegmented Neuts Not Reportable 10/12/20 10:16 Hyposegmented Neuts Not Reportable 10/12/20 10:16 Hypogranular Neuts Not Reportable 10/12/20 10:16 Smudge Cells Not Reportable 10/12/20 10:16 Toxic Granulation Not Reportable 10/12/20 10:16 Toxic Vacuolation Not Reportable 10/12/20 10:16 Dohle Bodies Not Reportable 10/12/20 10:16 Pelger-Huet Anomaly Not Reportable 10/12/20 10:16 Rafita Rods Not Reportable 10/12/20 10:16 Platelet Estimate Not Reportable 10/12/20 10:16 Clumped Platelets Not Reportable 10/12/20 10:16 Plt Clumps, EDTA Not Reportable 10/12/20 10:16 Large Platelets Not Reportable 10/12/20 10:16 Giant Platelets Not Reportable 10/12/20 10:16 Platelet Satelliting Not Reportable 10/12/20 10:16 Plt Morphology Comment Not Reportable 10/12/20 10:16 RBC Morphology Normal 10/12/20 10:16 Dimorphic RBCs Not Reportable 10/12/20 10:16 Polychromasia Not Reportable 10/12/20 10:16 Hypochromasia Not Reportable 10/12/20 10:16 Poikilocytosis Not Reportable 10/12/20 10:16 Anisocytosis Not Reportable 10/12/20 10:16 Microcytosis Not Reportable 10/12/20 10:16 Macrocytosis Not Reportable 10/12/20 10:16 Spherocytes Not Reportable 10/12/20 10:16 Pappenheimer Bodies Not Reportable 10/12/20 10:16 Sickle Cells Not Reportable 10/12/20 10:16 Target Cells Not Reportable 10/12/20 10:16 Tear Drop Cells Not Reportable 10/12/20 10:16 Ovalocytes Not Reportable 10/12/20 10:16 Helmet Cells Not Reportable 10/12/20 10:16 [place] Bodies Not Reportable 10/12/20 10:16 [employer] Rings Not Reportable 10/12/20 10:16 [place] Cells Not Reportable 10/12/20 10:16 Bite Cells Not Reportable 10/12/20 10:16 Crenated Cell Not Reportable 10/12/20 10:16 Elliptocytes Not Reportable 10/12/20 10:16 Acanthocytes (Spur) Not Reportable 10/12/20 10:16 Rouleaux Not Reportable 10/12/20 10:16 Hemoglobin C Crystals Not Reportable 10/12/20 10:16 Schistocytes Not Reportable 10/12/20 10:16 Malaria parasites Not Reportable 10/12/20 10:16 Ernie Bodies Not Reportable 10/12/20 10:16 Hem Pathologist Commnt No 10/12/20 10:16 PT 13.9 Sec. (12.2-14.9) 10/12/20 10:16 INR 1.01 (0.87-1.13) 10/12/20 10:16 APTT 22.8 Sec. (24.2-36.6) L 10/12/20 10:16 Thrombin Time 20.0 Sec. (15.1-19.6) H 10/12/20 10:16 D-Dimer 720.38 ng/mlDDU (0-234) H 10/18/20 19:55 Sodium 140 mmol/L (137-145) 10/12/20 10:16 Potassium 3.8 mmol/L (3.6-5.0) 10/12/20 10:16 Chloride 102.9 mmol/L (98-107) 10/12/20 10:16 Carbon Dioxide 30 mmol/L (22-30) 10/12/20 10:16 Anion Gap 11 mmol/L 10/12/20 10:16 BUN 7 mg/dL (7-17) 10/12/20 10:16 Creatinine 0.7 mg/dL (0.6-1.2) 10/12/20 10:16 Estimated GFR > 60 ml/min 10/12/20 10:16 BUN/Creatinine Ratio 10 % 10/12/20 10:16 Glucose 90 mg/dL (65-100) 10/12/20 10:16 POC Glucose 118 mg/dL (70-105) H 10/15/20 11:31 Calcium 9.5 mg/dL (8.4-10.2) 10/12/20 10:16 Ferritin 289.9 ng/mL (10.0-200.0) H 10/18/20 19:54 Total Bilirubin 0.90 mg/dL (0.1-1.2) 10/12/20 10:16 Direct Bilirubin 0.2 mg/dL (0-0.2) 10/12/20 10:16 Indirect Bilirubin 0.7 mg/dL 10/12/20 10:16 AST 23 units/L (5-40) 10/12/20 10:16 ALT 39 units/L (7-56) 10/12/20 10:16 Alkaline Phosphatase 71 units/L (35-129) 10/12/20 10:16 Lactate Dehydrogenase 205 units/L (91-180) H 10/18/20 19:55 Total Creatine Kinase 33 units/L (30-135) 10/12/20 10:16 CK-MB (CK-2) 1.7 ng/mL (0.0-4.0) 10/12/20 10:16 CK-MB (CK-2) Rel Index 5.1 (0-4) H 10/12/20 10:16 Troponin T < 0.010 ng/mL (0.00-0.029) 10/12/20 10:16 C-Reactive Protein 0.70 mg/dL (0.00-1.30) 10/18/20 19:55 Total Protein 6.5 g/dL (6.3-8.2) 10/12/20 10:16 Albumin 3.2 g/dL (3.9-5) L 10/12/20 10:16 Albumin/Globulin Ratio 1.0 % 10/12/20 10:16 Triglycerides 129 mg/dL (2-149) 10/13/20 14:48 Cholesterol 160 mg/dL (50-199) 10/13/20 14:48 LDL Cholesterol Direct 112 mg/dL (50-130) 10/13/20 14:48 HDL Cholesterol 39 mg/dL (40-59) L 10/13/20 14:48 Cholesterol/HDL Ratio 4.10 % 10/13/20 14:48 Coronavirus (PCR) Positive (Negative) A 10/19/20 Unknown Chaney/IV: Voiding Method Bedside Commode Active Medications - Current Medications Current Medications: Generic Name Dose Route Start Last Admin Trade Name Freq PRN Reason Stop Dose Admin Acetaminophen 650 mg 10/12/20 13:00 Acetaminophen 325 Mg Tab PO Q4H PRN Pain, Mild (1-3) Albuterol 2.5 mg 10/12/20 14:00 Albuterol 2.5 Mg/3 Ml Nebu IH Q3HRT PRN Shortness Of Breath Apixaban 5 mg 10/12/20 22:00 10/22/20 10:31 Apixaban 5 Mg Tab PO 5 mg Q12HR ALVARO Administration Aspirin 325 mg 10/13/20 10:00 10/22/20 10:31 Aspirin 325 Mg Tab PO 325 mg QDAY ALVARO Administration Atorvastatin Calcium 40 mg 10/12/20 22:00 10/21/20 22:34 Atorvastatin 40 Mg Tab PO Not Given QHS ALVARO Bisacodyl 10 mg 10/12/20 14:00 [address]acodyl [address] QDAY PRN Constipation Hydromorphone HCl 0.5 mg 10/12/20 13:00 Hydromorphone 1 Mg/1 Ml Inj IV Q12H PRN Pain , Severe (7-10) Magnesium Hydroxide 30 ml 10/12/20 13:00 10/15/20 14:27 Magnesium Hydroxide (Mom) Oral Liqd Udc PO 30 ml Q4H PRN Administration Constipation Metoclopramide HCl 10 mg 10/12/20 14:00 Metoclopramide 10 Mg Tab PO Q6H PRN Nausea And Vomiting Ondansetron HCl 4 mg 10/12/20 13:00 Ondansetron 4 Mg/2 Ml Inj IV Q8H PRN Nausea And Vomiting Oxycodone/Acetaminophen 1 tab 10/12/20 14:00 10/12/20 14:08 Oxycodone /Acetaminophen 5-325mg Tab PO 1 tab Q12H PRN Administration Pain, Moderate (4-6) Paroxetine HCl 20 mg 10/13/20 10:00 10/22/20 10:31 Paroxetine 20 Mg Tab PO 20 mg DAILY ALVARO Administration Promethazine HCl 25 mg 10/12/20 14:00 Promethazine [address] Q6H PRN Nausea And Vomiting Sodium Chloride 10 ml 10/12/20 14:40 10/19/20 10:41 Sodium Chloride 0.9% 10 Ml Flush Syringe IV 10 ml PRN PRN Administration LINE FLUSH Topiramate 25 mg 10/12/20 22:00 10/22/20 10:31 Topiramate Tab 25 Mg Tab PO 25 mg BID ALVARO Administration Nutrition/Malnutrition Assess - Dietary Evaluation Nutrition/Malnutrition Findings: Nutrition Notes Start: 10/15/20 11:42 Freq: Status: Active Protocol: Document 10/18/20 10:05 (Rec: 10/18/20 10:24 [id number]) Nutrition Notes Initial or Follow up Assessment Current Diagnosis Stroke Current Diet Vegan-like diet, Fish okayCardiac Consistent Caarbohydrate Labs/Tests Reviewed Pertinent Medications Reviewed Height 5 ft 9 in Weight 107.3 kg Usual Body Weight 109.09 kg [place] Body Weight (kg) 65.90 BMI 34.9 Weight change and time frame Pt with 1.6% wt loss in 1 week . Weight Status Obese Subjective/Other Information Pt reports not eating well for a week [employer]. Pt now eating 100 % of meals. Pt states she never lost her appetite, she was too weak to cook. Pt does not want ONS Percent of energy/protein needs met: 100%/83% Burn Absent Trauma Absent Current % PO Good (75-100%) Minimum of two criteria Yes Energy Intake (severe) < or equal to 50% Estimated Energy Requirement > or equal to 5 days Interpretation of Weight Loss (non- 1-2% in 1 week severe) #1 Nutrition Diagnosis Malnutrition Etiology acute illness As Evidenced by Signs and Symptoms <50 EER in 5 days, 2% wt loss in one week Is patient on ventilator? No Is Patient Ambulatory and/or Out of Bed Yes REE-(D[place]hesne-St. Jeor-ambulatory/OOB) [ 2284.594 NUTR.[id number]] Kcal/Kg value to use for calculation 16 Approximate Energy Requirements Using 1717 kcal/Kg Calculation Used for Recommendations Kcal/kg Additional Notes Protein: (1.2-1.5g/kg AdjBW: 87 kg) 104-131g Fluid: 1 ml/kcal Nutrition Intervention Change Diet Order: continue Add Supplement/Snack (indicate name/kcal d/c /protein ) Goal #1 Continue to meet at least 75% of protein and energy needs Follow-Up By: 10/25/20 Additional Comments F/u: stable intakes
[2020-10-23] MEDS: ASPIRIN 325 MG TAB PO SCH ×2 (09:31→09:41)
[2020-10-23] MEDS: PARoxetine 20 MG TAB PO SCH (09:31)
[2020-10-23] MEDS: TOPIRAMATE TAB 25 MG TAB PO SCH ×2 (09:31→22:08)
[2020-10-23] MEDS: APIXABAN 5 MG TAB PO SCH ×2 (09:31→22:08)
--- NOTE | 2020-10-23 11:42 | Progress Note ---
Assessment and Plan Assessment and plan: case management has recommended home with home health during the length of stay meeting today, Discharge was planned, however As patient has left-sided hemiparesis, with left foot drop, poor mobility Patient was upset that we are discharging her home with home health Patient demanded subacute rehab/SNF placement I reviewed all the physical therapy evaluation recommendations And all the Occupational Therapy evaluation recommendations They have always recommended acute rehab/subacute Discussed with the case management, will hold the discharge And process acute /subacute rehab placement. Today 10/23/2020, patient changed her mind, and wants to be discharged home With home health, and wants wheelchair and ankle boot --COVID-19 positive x2 Current Visit: Yes Status: Acute Contact and droplet isolation Inflammatory markers Home O2 evaluation ID consult Patient has no hypoxia No indication for remdesivir or steroids Closely monitor -- Acute CVA (cerebrovascular accident) left-sided hemiparesis Current Visit: Yes Status: Acute Not a candidate for TPA Aspirin and statin, extensive neuro work-up reviewed as below Physical therapy, Occupational Therapy, speech therapy Rehabilitation, Neurology evaluated the patient Neuro work-up so far: CT head without contrast; no acute intracranial abnormality noted CTA head; no evidence of large vessel occlusion stenosis or aneurysm MRI brain; numerous scattered punctate foci of acute infarctions predominantly throughout the right MCA territory right MCA territory CTA neck; unremarkable CTA neck no evidence of large vessel occlusion or stenosis patchy lung infiltrates concerning for atypical pneumonia Carotid Doppler; no hemodynamically significant stenosis Echocardiogram; LV EF: 65 to 70%, No left ventricular thrombus, No VSD, No PFO 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 fib, already on Eliquis Cardiology, neurology following --History of CVA in 2016; with residual left-sided weakness Current Visit: Yes Status: Chronic Continue supportive care, PT OT rehab --Hypertension Current Visit: Yes Status: Chronic Moderate control, continue current antihypertensives and as needed medications --Peripheral neuropathy Current Visit: Yes Status: Chronic Gabapentin and supportive care --History of atrial fibrillation Current Visit: Yes Status: Acute Continue therapeutic anticoagulation, beta-blockers supportive care. --DVT prophylaxis Current Visit: Yes Status: Acute SCD to bilateral lower extremities while in bed, Continue Eliquis Closely monitor patient and adjust management as needed Consults and recommendations noted and appreciated We will closely monitor the patient and adjust management as needed Disposition; patient requested SNF placement initially However today she reports that she does not want rehab or SNF placement Plan to be discharged home on home health with wheelchair and foot and ankle brace/ MsVidal Michael had many questions, I answered all of them Patient did not need any supplemental oxygen However since patient is Covid we will check home O2 evaluation prior to d ischarge 10/19/2020; initially patient wanted to go home with home health However today she decided to go to rehab for PT and OT Pending rehab placement Covid test done today is positive Discharge planning per case management 10/20/2020; PT OT recommended acute rehab placement DC planning per case management Repeat Covid test yesterday 10/19/2020 is positive 10/21/2020; discharge held In view of patient's severe mobility issues due to left hemiparesis and left foot drop As per PT and OT recommendation we will plan for placement acute vs subacute vs SNF DC planning per case management 10/22/2020; Awaiting SNF placement, DC planning per case management Continue Covid guideline treatment, PT as tolerated 10/23/2020; patient changed her mind And she wants to be discharged home with home health However requests foot drop brace, walker prior to discharge Brace and walker are already ordered Possible discharge tomorrow if stable Hospitalist Physical - Constitutional Vitals: Temp Pulse Resp BP Pulse Ox 98.7 F 59 L 20 121/67 97 10/23/20 05:30 10/23/20 05:30 10/23/20 05:30 10/23/20 05:30 10/23/20 05:30 General appearance: Present: mild distress, well-nourished, obese HEART Score - HEART Score Troponin: Troponin T < 0.010 ng/mL (0.00-0.029) 10/12/20 10:16 Results - Labs CBC & Chem 7: 10/12/20 10:16 10/12/20 10:16 Labs: Laboratory Last Values WBC 5.0 K/mm3 (4.5-11.0) 10/12/20 10:16 RBC 4.37 M/mm3 (3.65-5.03) 10/12/20 10:16 Hgb 12.2 gm/dl (10.1-14.3) 10/12/20 10:16 Hct 36.6 % (30.3-42.9) 10/12/20 10:16 MCV 84 fl (79-97) 10/12/20 10:16 MCH 28 pg (28-32) 10/12/20 10:16 MCHC 33 % (30-34) 10/12/20 10:16 RDW 14.0 % (13.2-15.2) 10/12/20 10:16 Plt Count 425 K/mm3 (140-440) 10/12/20 10:16 Add Manual Diff Complete 10/12/20 10:16 Total Counted 100 10/12/20 10:16 Seg Neuts % (Manual) 66.0 % (40.0-70.0) 10/12/20 10:16 Lymphocytes % (Manual) 21.0 % (13.4-35.0) 10/12/20 10:16 Monocytes % (Manual) 10.0 % (0.0-7.3) H 10/12/20 10:16 Eosinophils % (Manual) 2.0 % (0.0-4.3) 10/12/20 10:16 Basophils % (Manual) 1.0 % (0.0-1.8) 10/12/20 10:16 Nucleated RBC % Not Reportable 10/12/20 10:16 Seg Neutrophils # Man 3.3 K/mm3 (1.8-7.7) 10/12/20 10:16 Band Neutrophils # 0.0 K/mm3 10/12/20 10:16 Lymphocytes # (Manual) 1.1 K/mm3 (1.2-5.4) L 10/12/20 10:16 Abs React Lymphs (Man) 0.0 K/mm3 10/12/20 10:16 Monocytes # (Manual) 0.5 K/mm3 (0.0-0.8) 10/12/20 10:16 Eosinophils # (Manual) 0.1 K/mm3 (0.0-0.4) 10/12/20 10:16 Basophils # (Manual) 0.1 K/mm3 (0.0-0.1) 10/12/20 10:16 Metamyelocytes # 0.0 K/mm3 10/12/20 10:16 Myelocytes # 0.0 K/mm3 10/12/20 10:16 Promyelocytes # 0.0 K/mm3 10/12/20 10:16 Blast Cells # 0.0 K/mm3 10/12/20 10:16 WBC Morphology Not Reportable 10/12/20 10:16 Hypersegmented Neuts Not Reportable 10/12/20 10:16 Hyposegmented Neuts Not Reportable 10/12/20 10:16 Hypogranular Neuts Not Reportable 10/12/20 10:16 Smudge Cells Not Reportable 10/12/20 10:16 Toxic Granulation Not Reportable 10/12/20 10:16 Toxic Vacuolation Not Reportable 10/12/20 10:16 Dohle Bodies Not Reportable 10/12/20 10:16 Pelger-Huet Anomaly Not Reportable 10/12/20 10:16 Rafita Rods Not Reportable 10/12/20 10:16 Platelet Estimate Not Reportable 10/12/20 10:16 Clumped Platelets Not Reportable 10/12/20 10:16 Plt Clumps, EDTA Not Reportable 10/12/20 10:16 Large Platelets Not Reportable 10/12/20 10:16 Giant Platelets Not Reportable 10/12/20 10:16 Platelet Satelliting Not Reportable 10/12/20 10:16 Plt Morphology Comment Not Reportable 10/12/20 10:16 RBC Morphology Normal 10/12/20 10:16 Dimorphic RBCs Not Reportable 10/12/20 10:16 Polychromasia Not Reportable 10/12/20 10:16 Hypochromasia Not Reportable 10/12/20 10:16 Poikilocytosis Not Reportable 10/12/20 10:16 Anisocytosis Not Reportable 10/12/20 10:16 Microcytosis Not Reportable 10/12/20 10:16 Macrocytosis Not Reportable 10/12/20 10:16 Spherocytes Not Reportable 10/12/20 10:16 Pappenheimer Bodies Not Reportable 10/12/20 10:16 Sickle Cells Not Reportable 10/12/20 10:16 Target Cells Not Reportable 10/12/20 10:16 Tear Drop Cells Not Reportable 10/12/20 10:16 Ovalocytes Not Reportable 10/12/20 10:16 Helmet Cells Not Reportable 10/12/20 10:16 [place]el[place] Bodies Not Reportable 10/12/20 10:16 [place] Rings Not Reportable 10/12/20 10:16 S[place] Cells Not Reportable 10/12/20 10:16 Bite Cells Not Reportable 10/12/20 10:16 Crenated Cell Not Reportable 10/12/20 10:16 Elliptocytes Not Reportable 10/12/20 10:16 Acanthocytes (Spur) Not Reportable 10/12/20 10:16 Rouleaux Not Reportable 10/12/20 10:16 Hemoglobin C Crystals Not Reportable 10/12/20 10:16 Schistocytes Not Reportable 10/12/20 10:16 Malaria parasites Not Reportable 10/12/20 10:16 Ernie Bodies Not Reportable 10/12/20 10:16 Hem Pathologist Commnt No 10/12/20 10:16 PT 13.9 Sec. (12.2-14.9) 10/12/20 10:16 INR 1.01 (0.87-1.13) 10/12/20 10:16 APTT 22.8 Sec. (24.2-36.6) L 10/12/20 10:16 Thrombin Time 20.0 Sec. (15.1-19.6) H 10/12/20 10:16 D-Dimer 720.38 ng/mlDDU (0-234) H 10/18/20 19:55 Sodium 140 mmol/L (137-145) 10/12/20 10:16 Potassium 3.8 mmol/L (3.6-5.0) 10/12/20 10:16 Chloride 102.9 mmol/L (98-107) 10/12/20 10:16 Carbon Dioxide 30 mmol/L (22-30) 10/12/20 10:16 Anion Gap 11 mmol/L 10/12/20 10:16 BUN 7 mg/dL (7-17) 10/12/20 10:16 Creatinine 0.7 mg/dL (0.6-1.2) 10/12/20 10:16 Estimated GFR > 60 ml/min 10/12/20 10:16 BUN/Creatinine Ratio 10 % 10/12/20 10:16 Glucose 90 mg/dL (65-100) 10/12/20 10:16 POC Glucose 118 mg/dL (70-105) H 10/15/20 11:31 Calcium 9.5 mg/dL (8.4-10.2) 10/12/20 10:16 Ferritin 289.9 ng/mL (10.0-200.0) H 10/18/20 19:54 Total Bilirubin 0.90 mg/dL (0.1-1.2) 10/12/20 10:16 Direct Bilirubin 0.2 mg/dL (0-0.2) 10/12/20 10:16 Indirect Bilirubin 0.7 mg/dL 10/12/20 10:16 AST 23 units/L (5-40) 10/12/20 10:16 ALT 39 units/L (7-56) 10/12/20 10:16 Alkaline Phosphatase 71 units/L (35-129) 10/12/20 10:16 Lactate Dehydrogenase 205 units/L (91-180) H 10/18/20 19:55 Total Creatine Kinase 33 units/L (30-135) 10/12/20 10:16 CK-MB (CK-2) 1.7 ng/mL (0.0-4.0) 10/12/20 10:16 CK-MB (CK-2) Rel Index 5.1 (0-4) H 10/12/20 10:16 Troponin T < 0.010 ng/mL (0.00-0.029) 10/12/20 10:16 C-Reactive Protein 0.70 mg/dL (0.00-1.30) 10/18/20 19:55 Total Protein 6.5 g/dL (6.3-8.2) 10/12/20 10:16 Albumin 3.2 g/dL (3.9-5) L 10/12/20 10:16 Albumin/Globulin Ratio 1.0 % 10/12/20 10:16 Triglycerides 129 mg/dL (2-149) 10/13/20 14:48 Cholesterol 160 mg/dL (50-199) 10/13/20 14:48 LDL Cholesterol Direct 112 mg/dL (50-130) 10/13/20 14:48 HDL Cholesterol 39 mg/dL (40-59) L 10/13/20 14:48 Cholesterol/HDL Ratio 4.10 % 10/13/20 14:48 Coronavirus (PCR) Positive (Negative) A 10/19/20 Unknown Chaney/IV: Voiding Method Bedside Commode Active Medications - Current Medications Current Medications: Generic Name Dose Route Start Last Admin Trade Name Freq PRN Reason Stop Dose Admin Acetaminophen 650 mg 10/12/20 13:00 Acetaminophen 325 Mg Tab PO Q4H PRN Pain, Mild (1-3) Albuterol 2.5 mg 10/12/20 14:00 Albuterol 2.5 Mg/3 Ml Nebu IH Q3HRT PRN Shortness Of Breath Apixaban 5 mg 10/12/20 22:00 10/23/20 09:31 Apixaban 5 Mg Tab PO 5 mg Q12HR ALVARO Administration Aspirin 325 mg 10/13/20 10:00 10/23/20 09:41 Aspirin 325 Mg Tab PO Not Given QDAY ALVARO Atorvastatin Calcium 40 mg 10/12/20 22:00 10/22/20 22:36 Atorvastatin 40 Mg Tab PO 40 mg QHS ALVARO Administration Bisacodyl 10 mg 10/12/20 14:00 Bisacodyl 10 Mg Rect Supp WA QDAY PRN Constipation Hydromorphone HCl 0.5 mg 10/12/20 13:00 Hydromorphone 1 Mg/1 Ml Inj IV Q12H PRN Pain , Severe (7-10) Magnesium Hydroxide 30 ml 10/12/20 13:00 10/15/20 14:27 Magnesium Hydroxide (Mom) Oral Liqd Udc PO 30 ml Q4H PRN Administration Constipation Metoclopramide HCl 10 mg 10/12/20 14:00 Metoclopramide 10 Mg Tab PO Q6H PRN Nausea And Vomiting Ondansetron HCl 4 mg 10/12/20 13:00 Ondansetron 4 Mg/2 Ml Inj IV Q8H PRN Nausea And Vomiting Oxycodone/Acetaminophen 1 tab 10/12/20 14:00 10/12/20 14:08 Oxycodone /Acetaminophen 5-325mg Tab PO 1 tab Q12H PRN Administration Pain, Moderate (4-6) Paroxetine HCl 20 mg 10/13/20 10:00 10/23/20 09:31 Paroxetine 20 Mg Tab PO 20 mg DAILY ALVARO Administration Promethazine HCl 25 mg 10/12/20 14:00 Promethazine 25 Mg Rect Supp WA Q6H PRN Nausea And Vomiting Sodium Chloride 10 ml 10/12/20 14:40 10/19/20 10:41 Sodium Chloride 0.9% 10 Ml Flush Syringe IV 10 ml PRN PRN Administration LINE FLUSH Topiramate 25 mg 10/12/20 22:00 10/23/20 09:31 Topiramate Tab 25 Mg Tab PO 25 mg BID ALVARO Administration Nutrition/Malnutrition Assess - Dietary Evaluation Nutrition/Malnutrition Findings: Nutrition Notes Start: 10/15/20 11:42 Freq: Status: Active Protocol: Document 10/18/20 10:05 (Rec: 10/18/20 10:24 [id number]) Nutrition Notes Initial or Follow up Assessment Current Diagnosis Stroke Current Diet Vegan-like diet, Fish okayCardiac Consistent Caarbohydrate Labs/Tests Reviewed Pertinent Medications Reviewed Height 5 ft 9 in Weight 107.3 kg Usual Body Weight 109.09 kg [place] Body Weight (kg) 65.90 BMI 34.9 Weight change and time frame Pt with 1.6% wt loss in 1 week . Weight Status Obese Subjective/Other Information Pt reports not eating well for a week [employer]. Pt now eating 100 % of meals. Pt states she never lost her appetite, she was too weak to cook. Pt does not want ONS Percent of energy/protein needs met: 100%/83% Burn Absent Trauma Absent Current % PO Good (75-100%) Minimum of two criteria Yes Energy Intake (severe) < or equal to 50% Estimated Energy Requirement > or equal to 5 days Interpretation of Weight Loss (non- 1-2% in 1 week severe) #1 Nutrition Diagnosis Malnutrition Etiology acute illness As Evidenced by Signs and Symptoms <50 EER in 5 days, 2% wt loss in one week Is patient on ventilator? No Is Patient Ambulatory and/or Out of Bed Yes REE-([facility]-ambulatory/OOB) [ 2284.594 NUTR.MSJOOB] Kcal/Kg value to use for calculation 16 Approximate Energy Requirements Using 1717 kcal/Kg Calculation Used for Recommendations Kcal/kg Additional Notes Protein: (1.2-1.5g/kg AdjBW: 87 kg) 104-131g Fluid: 1 ml/kcal Nutrition Intervention Change Diet Order: continue Add Supplement/Snack (indicate name/kcal d/c /protein ) Goal #1 Continue to meet at least 75% of protein and energy needs Follow-Up By: 10/25/20 Additional Comments F/u: stable intakes
[2020-10-24] MEDS: APIXABAN 5 MG TAB PO SCH (11:56)
[2020-10-24] MEDS: TOPIRAMATE TAB 25 MG TAB PO SCH (11:56)
[2020-10-24] MEDS: PARoxetine 20 MG TAB PO SCH (11:57)
[2020-10-24] MEDS: ASPIRIN 325 MG TAB PO SCH ×2 (11:57→11:58)
[2020-10-24 18:14] VITALS: BP 154/93
== END 2020-10-24 19:10 | disposition home health service (06) | DRG 64 ==
LOC: ED 09:26 → 3A 12:39 → OBSVTOIN 10-13 15:11 → 3A 10-13 23:58
PROVIDERS: ADMIT Internal Medicine; ATTEND Internal Medicine
DX: I63.411 Cerebral infarction due to embolism of right middle cerebral artery (principal); U07.1 COVID-19; I48.11 Longstanding persistent atrial fibrillation; E44.0 Moderate protein-calorie malnutrition; G81.94 Hemiplegia, unspecified affecting left nondominant side; I10 Essential (primary) hypertension; G62.9 Polyneuropathy, unspecified; Z79.01 Long term (current) use of anticoagulants; Z88.1 Allergy status to other antibiotic agents; Z91.040 Latex allergy status; G43.909 Migraine, unspecified, not intractable, without status migrainosus; Z79.899 Other long term (current) drug therapy; R29.707 NIHSS score 7; E66.9 Obesity, unspecified; E78.5 Hyperlipidemia, unspecified; Z68.34 Body mass index [BMI] 34.0-34.9, adult
CPT/HCPCS: 36415; 70450; 70496; 70498; 70551; 71045; 80048; 80061; 80076; 82550; 82553; 82728; 82962; 83615; 84484; 85007; 85025; 85379; 85610; 85670; 85730; 86140; 93005; 93306; 93880; G0378; A9270-GY; Q9967; U0003

== ENCOUNTER 2021-04-11 23:22 | Emergency (ER) | payer BC, MEDICARE ==
[2021-04-11 23:44] VITALS: BP 131/86
[2021-04-12] MEDS ORDERED: ACETAMINOPHEN 500 MG TAB PO ONE (00:16)
--- NOTE | 2021-04-12 00:20 | Emergency Department Report ---
HPI - General Chief Complaint: Head Injury Time Seen by Provider: 04/12/21 00:07 - HPI HPI: Reassessment 1 The patient is a 50-year-old female present with a chief complaint of headache. The patient states just prior to arrival she accidentally turned and struck her head on a cabinet striking the frontal region. Patient states she fell down to the ground because of the pain but did not lose consciousness. Patient admits to some nausea but denies vomiting. Patient gives her headache a score of 6/10. Patient states she is on Eliquis for previous CVAs ED Past Medical Hx - Past Medical History Previous Medical History?: Yes Hx Hypertension: Yes Hx CVA: Yes (L sided weakness) Hx Seizures: Yes Additional medical history: anemia - Surgical History Past Surgical History?: Yes Additional Surgical History: hysterectomy - Family History Family history: no significant - Social History Smoking Status: Former Smoker Substance Use Type: Alcohol (Rarely) - Medications Home Medications: Home Medications Medication Instructions Recorded Confirmed Last Taken Type Folic Acid [Folvite] 10/12/20 Unknown History Gabapentin 10/12/20 Unknown History HCTZ 10/12/20 Unknown History PARoxetine [Paxil] 20 mg PO DAILY 10/12/20 10/12/20 Unknown History Topiramate [Topamax] 25 mg PO BID 10/12/20 10/12/20 Unknown History lisinopriL [Lisinopril] 20 mg PO 10/12/20 Unknown History Apixaban [Eliquis] 5 mg PO Q12H #60 10/21/20 Unknown Rx Ascorbic Acid [Vitamin C chew] 500 mg PO BID #60 tab.chew 10/21/20 Unknown Rx Aspirin EC [Halfprin EC] 81 mg PO QDAY #30 tablet. 10/21/20 Unknown Rx AtorvaSTATin [Lipitor] 40 mg PO QHS #30 tablet 10/21/20 Unknown Rx Cholecalciferol Vit D3 [Vitamin D3 1,000 unit PO QDAY #30 tablet 10/21/20 Unknown Rx 1,000 UNIT TAB] Zinc Sulfate [Zinc] 220 mg PO BID #60 tablet 10/21/20 Unknown Rx oxyCODONE /ACETAMINOPHEN [Percocet 1 tab PO Q12H PRN #10 tablet 10/21/20 Unknown Rx 5/325 mg] HYDROcodone/APAP 5-325 [Enderlin 1 - 2 each PO Q6HR PRN #7 tablet 04/12/21 Unknown Rx 5/325] ED Review of Systems ROS: Stated complaint: HEAD TRAMA ON BLOOD THINNERS Other details as noted in HPI Constitutional: no symptoms reported Eyes: denies: eye pain ENT: denies: throat pain Respiratory: no symptoms reported Cardiovascular: denies: chest pain Endocrine: no symptoms reported Gastrointestinal: nausea. denies: vomiting Genitourinary: denies: dysuria Musculoskeletal: denies: back pain Neurological: headache Physical Exam - Physical Exam Vital Signs: Vital Signs 04/11/21 23:43 Temperature 98.6 F Pulse Rate 70 Respiratory 20 Rate Blood Pressure 131/86 [Right] O2 Sat by Pulse 99 Oximetry Physical Exam: GENERAL: The patient is well-developed well-nourished female lying in chair not appearing to be in acute distress. [] HEENT: Normocephalic. Extraocular motions are intact. Patient has moist mucous membranes. No lacerations or abrasions seen NECK: Supple. Trachea midline CHEST/LUNGS: Clear to auscultation. There is no respiratory distress noted. HEART/CARDIOVASCULAR: Regular. There is no tachycardia. There is no gallop rub or murmur. ABDOMEN: Abdomen is soft, nontender. Patient has normal bowel sounds. There is no abdominal distention. SKIN: There is no rash. There is no edema. There is no diaphoresis. NEURO: The patient is awake, alert, and oriented. The patient is cooperative. Cranial nerves II through XII grossly intact with exception of cranial nerve #11 on the left from previous CVA. The patient has normal speech MUSCULOSKELETAL:There is no evidence of acute injury. ED Course Vital Signs 04/11/21 23:43 Temperature 98.6 F Pulse Rate 70 Respiratory 20 Rate Blood Pressure 131/86 [Right] O2 Sat by Pulse 99 Oximetry ED Medical Decision Making - Radiology Data Radiology results: report reviewed (CT head), image reviewed (CT head) [facility] [address] [place] [address] Cat Scan Report Signed Patient: THOMAS TURCIOS MR#: [id number] : 1970 Acct:[id number] Age/Sex: 50 / F ADM Date: 04/11/21 Loc: ED Attending Dr: Ordering Physician: AUNG FISHER MD Date of Service: 04/11/21 Procedure(s): CT head/brain wo con Accession Number(s): [id number] cc: AUNG FISHER MD CT HEAD WITHOUT CONTRAST INDICATION / CLINICAL INFORMATION: Hit head on cabinet takes Eliquis. TECHNIQUE: CT of the head was performed without administration of intravenous contrast. All CT scans at this location are performed using CT dose reduction for ALARA by means of automated exposure control. COMPARISON: None available. FINDINGS: CEREBRAL PARENCHYMA: No significant abnormality. No acute territorial infarct. HEMORRHAGE: None. EXTRA-AXIAL SPACES: Normal in size and morphology for the patient's age. VENTRICULAR SYSTEM: Normal in size and morphology for the patient's age. MIDLINE SHIFT / HERNIATION: None. CEREBELLUM / BRAINSTEM: No significant abnormality. ORBITS: Normal as visualized. SOFT TISSUES: No significant abnormality. SKULL: No significant abnormality. PARANASAL SINUSES / MASTOID AIR CELLS: Normal as visualized. ADDITIONAL FINDINGS: None. IMPRESSION: 1. No acute intracranial abnormality. Signer Name: Jhony Gooden II, MD Signed: 04/12/2021 1:04 AM Workstation Name: [employer]- [id number] Transcribed By: JOSE Dictated By: JHONY GOODEN II, MD Electronically Authenticated By: JHONY GOODEN II, MD Signed Date/Time: 04/12/21103 DD/ 3 TD/TT: Print Cancel - Differential Diagnosis Closed head injury, cerebral contusion, intracranial hemorrhage Critical care attestation.: If time is entered above; I have spent that time in minutes in the direct care of this critically ill patient, excluding procedure time. ED Disposition Clinical Impression: Closed head injury Disposition: HOME / SELF CARE / HOMELESS Is pt being admited?: No Does the pt Need Aspirin: No Condition: Stable Instructions: Head Injury, Adult, [id number] Additional Instructions: Return to the emergency department should you develop worsening symptoms, inability to tolerate food or liquids, high fever or any other concerns Prescriptions: HYDROcodone/APAP 5-325 [Enderlin 5/325] 1 - 2 each PO Q6HR PRN #7 tablet PRN Reason: Pain Referrals: AMLA WU MD [Staff Physician] - 3-5 Days Time of Disposition: :19
--- NOTE | 2021-04-12 01:09 | Cat Scan Report ---
CT HEAD WITHOUT CONTRAST INDICATION / CLINICAL INFORMATION: Hit head on cabinet takes Eliquis. TECHNIQUE: CT of the head was performed without administration of intravenous contrast. All CT scans at this location are performed using CT dose reduction for ALARA by means of automated exposure contr ol. COMPARISON: None available. FINDINGS: CEREBRAL PARENCHYMA: No significant abnormality. No acute territorial infarct. HEMORRHAGE: None. EXTRA-AXIAL SPACES: Normal in size and morphology for the patient's age. VENTRICULAR SYSTEM: Normal in size and morphology for the patient's age. MIDLINE SHIFT / HERNIATION: None. CEREBELLUM / BRAINSTEM: No significant abnormality. ORBITS: Normal as visualized. SOFT TISSUES: No significant abnormality. SKULL: No significant abnormality. PARANASAL SINUSES / MASTOID AIR CELLS: Normal as visualized. ADDITIONAL FINDINGS: None. IMPRESSION: 1. No acute intracranial abnormality. Signer Name: Osvaldo Pemberton II, MD Signed: 04/12/2021 1:04 AM Workstation Name: [id number]
== END 2021-04-12 02:44 | disposition home or self-care (01) ==
LOC: ED 23:22
DX: S09.90XA Unspecified injury of head, initial encounter (principal); I10 Essential (primary) hypertension; Z90.710 Acquired absence of both cervix and uterus; Z87.891 Personal history of nicotine dependence; Z72.89 Other problems related to lifestyle; Z88.1 Allergy status to other antibiotic agents; Z91.040 Latex allergy status; W22.8XXA Striking against or struck by other objects, initial encounter; Y93.89 Activity, other specified; Y92.89 Other specified places as the place of occurrence of the external cause; Y99.8 Other external cause status
CPT/HCPCS: 70450; 99283

== ENCOUNTER 2021-08-17 05:41 | Observation (INO) | payer BC, MEDICARE ==
--- NOTE | 2021-08-17 06:36 | Cat Scan Report ---
CT HEAD WITHOUT CONTRAST INDICATION / CLINICAL INFORMATION: DISORIENTED, UNSTEADY GAIT PER PT. TECHNIQUE: CT head was performed without administration of intravenous contrast. All CT scans at this location are performed using CT dose reduction for ALARA by means of automated exposure control. COMPARISON: CT head 04/12/2021 FINDINGS: CEREBRAL HEMISPHERES: There is no evidence of large territorial infarction or significant abnormality of blackburn-white matter differentiation. Ventricles within normal limits. No midline shift. Basal ciste rns patent. HEMORRHAGE: None. CEREBELLUM / BRAINSTEM: No significant abnormality. ORBITS: No significant abnormality. SOFT TISSUES: No significant abnormality. SKULL: No significant abnormality. PARANASAL SINUSES / MASTOID AIR CELLS: Normal as visualized. ADDITIONAL FINDINGS: None. IMPRESSION: 1. No acute intracranial abnormality. Signer Name: Osvaldo Pemberton II, MD Signed: 08/17/2021 6:31 AM Workstation Name: [id number]
--- NOTE | 2021-08-17 06:42 | Emergency Department Report ---
ED Neuro Deficit HPI - General Chief Complaint: Weakness Stated Complaint: DISORIENTED, UNSTEADY GAIT Time Seen by Provider: 08/17/21 06:20 Source: EMS, old records reviewed Mode of arrival: Stretcher Limitations: No Limitations - History of Present Illness Initial Comments: 50-year-old obese female with a past medical history CVA with residual deficits in 2016, history of atrial fibrillation on Eliquis, dyslipidemia, migraines, and hypertension presents to the hospital with complaints of acute neurologic symptoms. Patient went to bed normal at 2:30 AM. She woke up around 4:50 AM to go to the bathroom and felt "disoriented and off balance". Patient felt like she was going to fall while ambulating and had some difficulty communicating with her family members. She continued to feel disoriented until after ED arrival. At time of my evaluation patient states she is back to her baseline neurologic status. At her baseline patient has some mild memory problems, mild word finding difficulties, left-sided weakness, and left sided numbness. She ambulates with a cane at her baseline. She has been compliant with her all her medications with exception of Topamax for migraines. The last several days she has had intermittent headaches that resolved with sleeping approximately 4 hours. She currently has a 5/10 headache typical of her chronic intermittent migraine headache. No complaints of fever, chest pain, shortness of breath, or vomiting SEPTEMBER 2020 INPATIENT CVA WORKUP PER MED RECORD CT head without contrast; no acute intracranial abnormality noted CTA head; no evidence of large vessel occlusion stenosis or aneurysm MRI brain; numerous scattered punctate foci of acute infarctions predominantly throughout the right MCA territory right MCA territory CTA neck; unremarkable CTA neck no evidence of large vessel occlusion or stenosis patchy lung infiltrates concerning for atypical pneumonia Carotid Doppler; no hemodynamically significant stenosis Echocardiogram; LV EF: 65 to 70%, No left ventricular thrombus, No VSD, No PFO - Related Data Home Medications: Home Medications Medication Instructions Recorded Confirmed Last Taken Folic Acid [Folvite] 10/12/20 Unknown Gabapentin 10/12/20 Unknown HCTZ 10/12/20 Unknown PARoxetine [Paxil] 20 mg PO DAILY 10/12/20 10/12/20 Unknown Topiramate [Topamax] 25 mg PO BID 10/12/20 10/12/20 Unknown lisinopriL [Lisinopril] 20 mg PO 10/12/20 Unknown Previous Rx's Medication Instructions Recorded Last Taken Type Apixaban [Eliquis] 5 mg PO Q12H #60 10/21/20 Unknown Rx Ascorbic Acid [Vitamin C chew] 500 mg PO BID #60 tab.chew 10/21/20 Unknown Rx Aspirin EC [Halfprin EC] 81 mg PO QDAY #30 tablet. 10/21/20 Unknown Rx AtorvaSTATin [Lipitor] 40 mg PO QHS #30 tablet 10/21/20 Unknown Rx Cholecalciferol Vit D3 [Vitamin D3 1,000 unit PO QDAY #30 tablet 10/21/20 Unknown Rx 1,000 UNIT TAB] Zinc Sulfate [Zinc] 220 mg PO BID #60 tablet 10/21/20 Unknown Rx oxyCODONE /ACETAMINOPHEN [Percocet 1 tab PO Q12H PRN #10 tablet 10/21/20 Unknown Rx 5/325 mg] HYDROcodone/APAP 5-325 [[place] 1 - 2 each PO Q6HR PRN #7 tablet 04/12/21 Unknown Rx 5/325] Allergies/Adverse Reactions: Allergies Allergy/AdvReac Type Severity Reaction Status Date / Time erythromycin base Allergy Anaphylaxis Verified 10/12/20 10:12 Latex, Natural Rubber Allergy Hives Verified 10/12/20 10:12 ED Review of Systems ROS: Stated complaint: DISORIENTED, UNSTEADY GAIT Other details as noted in HPI Comment: All other systems reviewed and negative ED Past Medical Hx - Past Medical History Previous Medical History?: Yes Hx Hypertension: Yes Hx CVA: Yes (L sided weakness) Hx Congestive Heart Failure: No Hx Diabetes: No Hx Seizures: Yes Hx Asthma: No Hx COPD: No Additional medical history: anemia - Surgical History Past Surgical History?: Yes Additional Surgical History: hysterectomy - Social History Smoking Status: Unknown if ever smoked - Medications Home Medications: Home Medications Medication Instructions Recorded Confirmed Last Taken Type Folic Acid [Folvite] 10/12/20 Unknown History Gabapentin 10/12/20 Unknown History HCTZ 10/12/20 Unknown History PARoxetine [Paxil] 20 mg PO DAILY 10/12/20 10/12/20 Unknown History Topiramate [Topamax] 25 mg PO BID 10/12/20 10/12/20 Unknown History lisinopriL [Lisinopril] 20 mg PO 10/12/20 Unknown History Apixaban [Eliquis] 5 mg PO Q12H #60 10/21/20 Unknown Rx Ascorbic Acid [Vitamin C chew] 500 mg PO BID #60 tab.chew 10/21/20 Unknown Rx Aspirin EC [Halfprin EC] 81 mg PO QDAY #30 tablet. 10/21/20 Unknown Rx AtorvaSTATin [Lipitor] 40 mg PO QHS #30 tablet 10/21/20 Unknown Rx Cholecalciferol Vit D3 [Vitamin D3 1,000 unit PO QDAY #30 tablet 10/21/20 Unknown Rx 1,000 UNIT TAB] Zinc Sulfate [Zinc] 220 mg PO BID #60 tablet 10/21/20 Unknown Rx oxyCODONE /ACETAMINOPHEN [Percocet 1 tab PO Q12H PRN #10 tablet 10/21/20 Unknown Rx 5/325 mg] HYDROcodone/APAP 5-325 [[place] 1 - 2 each PO Q6HR PRN #7 tablet 04/12/21 Unknown Rx 5/325] ED Neuro Physical Exam - General Limitations: No Limitations Suspected Stroke: Yes - NIHSS Assessment Interval: Baseline 1a. Level of Consciousness: alert/keenly responsive 1b. LOC Questions: answers both correctly 1c. LOC Commands: performs tasks correctly 2. Best Gaze: normal 3. Visual: no visual loss 4. Facial Palsy: normal symmetrical movement 5b. Motor Arm Right: no drift 5a. Motor Arm Left: drift 6a. Motor Leg Left: no gravity effort 6b. Motor Leg Right: no drift 7. Limb Ataxia: absent 8. Sensory: normal 9. Best Language: no aphasia 10. Dysarthria: normal 11. Extinction/Inattention: no abnormality Total Score: 4 Stroke Severity: Minor Stroke - Other Other exam information: General: No acute distress Head: Atraumatic Eyes: normal appearance ENT: Moist mucous membranes Neck: Normal appearance, no midline tenderness Chest: Clear to auscultation bilaterally CV: Regular rate and rhythm Abdomen: Soft, normal bowel sounds, nontender, nondistended, no rebound or guarding Back: Normal inspection Extremity: Normal inspection, full range of motion Neuro: Alert O x 3, as per NIHSS (note chronic neurologic findings only). Skin: No rash ED Course Vital Signs 08/17/21 08/17/21 08/17/21 05:54 06:09 06:13 Temperature 98.7 F Pulse Rate 66 Respiratory 18 Rate Blood Pressure 168/110 O2 Sat by Pulse 99 99 96 Oximetry - Consultations Consultation #1: 08/17/21 06:[address] Alejandre neurologist on-call recommend inpatient stroke work-up. See note - Lab Data Result diagrams: 08/17/21 06:53 08/17/21 06:53 Lab Results 08/17/21 08/17/21 08/17/21 Range/Units 06:53 06:53 06:53 WBC 4.9 (4.5-11.0) K/mm3 RBC 4.22 (3.65-5.03) M/mm3 Hgb 12.0 (10.1-14.3) gm/dl Hct 35.9 (30.3-42.9) % MCV 85 (79-97) fl MCH 29 (28-32) pg MCHC 34 (30-34) % RDW 14.3 (13.2-15.2) % Plt Count 182 (140-440) K/mm3 Lymph % (Auto) 24.6 (13.4-35.0) % [place] % (Auto) 6.2 (0.0-7.3) % Eos % (Auto) 2.9 (0.0-4.3) % Baso % (Auto) 2.6 H (0.0-1.8) % Lymph # (Auto) 1.2 (1.2-5.4) K/mm3 [place] # (Auto) 0.3 (0.0-0.8) K/mm3 Eos # (Auto) 0.1 (0.0-0.4) K/mm3 Baso # (Auto) 0.1 (0.0-0.1) K/mm3 Seg Neutrophils % 63.7 (40.0-70.0) % Seg Neutrophils # 3.1 (1.8-7.7) K/mm3 PT 13.4 (12.2-14.9) Sec. INR 0.92 (0.87-1.13) APTT 29.2 (24.2-36.6) Sec. Thrombin Time 16.0 (15.1-19.6) Sec. Sodium 135 L (137-145) mmol/L Potassium 3.8 (3.6-5.0) mmol/L Chloride 103.4 (98-107) mmol/L Carbon Dioxide 27 (22-30) mmol/L Anion Gap 8 mmol/L BUN 9 (7-17) mg/dL Creatinine 0.5 L (0.6-1.2) mg/dL Estimated GFR > 60 ml/min BUN/Creatinine Ratio 18 % Glucose 113 H (65-100) mg/dL Calcium 9.8 (8.4-10.2) mg/dL Magnesium 2.10 (1.7-2.3) mg/dL Total Bilirubin 0.40 (0.1-1.2) mg/dL AST 19 (5-40) units/L ALT 25 (7-56) units/L Alkaline Phosphatase 82 (35-129) units/L Total Creatine Kinase 65 (30-135) units/L CK-MB (CK-2) 1.5 (0.0-4.0) ng/mL CK-MB (CK-2) Rel Index 2.3 (0-4) Troponin T < 0.010 (0.00-0.029) ng/mL Total Protein 6.7 (6.3-8.2) g/dL Albumin 3.9 (3.9-5) g/dL Albumin/Globulin Ratio 1.4 % HCG, Quant (0-4) mIU/mL Plasma/Serum Alcohol (0-0.07) % 08/17/21 08/17/21 Range/Units 06:53 06:53 WBC (4.5-11.0) K/mm3 RBC (3.65-5.03) M/mm3 Hgb (10.1-14.3) gm/dl Hct (30.3-42.9) % MCV (79-97) fl MCH (28-32) pg MCHC (30-34) % RDW (13.2-15.2) % Plt Count (140-440) K/mm3 Lymph % (Auto) (13.4-35.0) % [place] % (Auto) (0.0-7.3) % Eos % (Auto) (0.0-4.3) % Baso % (Auto) (0.0-1.8) % Lymph # (Auto) (1.2-5.4) K/mm3 [place] # (Auto) (0.0-0.8) K/mm3 Eos # (Auto) (0.0-0.4) K/mm3 Baso # (Auto) (0.0-0.1) K/mm3 Seg Neutrophils % (40.0-70.0) % Seg Neutrophils # (1.8-7.7) K/mm3 PT (12.2-14.9) Sec. INR (0.87-1.13) APTT (24.2-36.6) Sec. Thrombin Time (15.1-19.6) Sec. Sodium (137-145) mmol/L Potassium (3.6-5.0) mmol/L Chloride (98-107) mmol/L Carbon Dioxide (22-30) mmol/L Anion Gap mmol/L BUN (7-17) mg/dL Creatinine (0.6-1.2) mg/dL Estimated GFR ml/min BUN/Creatinine Ratio % Glucose (65-100) mg/dL Calcium (8.4-10.2) mg/dL Magnesium (1.7-2.3) mg/dL Total Bilirubin (0.1-1.2) mg/dL AST (5-40) units/L ALT (7-56) units/L Alkaline Phosphatase (35-129) units/L Total Creatine Kinase (30-135) units/L CK-MB (CK-2) (0.0-4.0) ng/mL CK-MB (CK-2) Rel Index (0-4) Troponin T (0.00-0.029) ng/mL Total Protein (6.3-8.2) g/dL Albumin (3.9-5) g/dL Albumin/Globulin Ratio % HCG, Quant < 2 (0-4) mIU/mL Plasma/Serum Alcohol < 0.01 (0-0.07) % - EKG Data -: EKG Interpreted by Hi EKG shows normal: sinus rhythm, ST-T waves (no stemi) Rate: bradycardia (51) When compared to previous EKG there are: no significant change - Radiology Data Radiology results: report reviewed CT HEAD WITHOUT CONTRAST INDICATION / CLINICAL INFORMATION: DISORIENTED, UNSTEADY GAIT PER PT. TECHNIQUE: CT head was performed without administration of intravenous contrast. All CT scans at this location are performed using CT dose reduction for ALARA by means of automated exposure control. COMPARISON: CT head 04/12/2021 FINDINGS: CEREBRAL HEMISPHERES: There is no evidence of large territorial infarction or significant abnormality of blackburn-white matter differentiation. Ventricles within normal limits. No midline shift. Basal cisterns patent. HEMORRHAGE: None. CEREBELLUM / BRAINSTEM: No significant abnormality. ORBITS: No significant abnormality. SOFT TISSUES: No significant abnormality. SKULL: No significant abnormality. PARANASAL SINUSES / MASTOID AIR CELLS: Normal as visualized. ADDITIONAL FINDINGS: None. IMPRESSION: 1. No acute intracranial abnormality. - Medical Decision Making 50-year-old female with a past medical history multiple CVAs currently on chronic anticoagulation presents to the hospital with acute neurologic symptoms which have since resolved. CT head does not show any acute findings. Patient is not a candidate for thrombolytics given rapidly improved symptoms (back to baseline at this time) and the fact the patient is on chronic anticoagulation. Case was discussed with neurologist. Since symptoms resolved CT angiogram cannot recommended at this time. If symptoms worsen emergent CTA may be indicated. Admission lab is recommended for continued stroke work-up. Reglan and Benadryl ordered for migraine headache. Labs unremarkable. Urine collection pending at disposition. hospitalist to admit. - Thrombolytic Inclusion/Exclusion Thrombolytic Contraindications: Rapidily Improving s/s, Patient on Anticoagulants Critical care attestation.: If time is entered above; I have spent that time in minutes in the direct care of this critically ill patient, excluding procedure time. ED Disposition Clinical Impression: Transient neurologic deficit, History of CVA with residual deficit, care home current use of anticoagulant, Migraine Disposition: ADMITTED INPATIENT Is pt being admited?: Yes Condition: Stable Time of Disposition: 08:22 (Dr Daniel)
[2021-08-17] MEDS ORDERED: diphenhydrAMINE 50 MG/ML VIAL IV ONE (06:53)
[2021-08-17] MEDS ORDERED: METOCLOPRAMIDE 10 MG/2 ML INJ IV ONE (06:53)
[2021-08-17 07:20] LABS: Basophils # (Auto) 0.1 K/mm3 (0.0-0.1); Basophils % (Auto) 2.6 % (0.0-1.8); Eosinophils # (Auto) 0.1 K/mm3 (0.0-0.4); Eosinophils % (Auto) 2.9 % (0.0-4.3); Hematocrit 35.9 % (30.3-42.9); Lymphocytes # (Auto) 1.2 K/mm3 (1.2-5.4); Lymphocytes % (Auto) 24.6 % (13.4-35.0); Mean Corpuscular HGB Conc 34 % (30-34); Mean Corpuscular Volume 85 fl (79-97); Monocytes # (Auto) 0.3 K/mm3 (0.0-0.8); Monocytes % (Auto) 6.2 % (0.0-7.3); Platelet Count 182 K/mm3 (140-440); Red Blood Count 4.22 M/mm3 (3.65-5.03); Red Cell Distribution Width 14.3 % (13.2-15.2)
[2021-08-17 07:39] LABS: Creatine Kinase MB 1.5 ng/mL (0.0-4.0)
[2021-08-17 07:40] LABS: Alanine Aminotransferase 25 units/L (7-56); Albumin 3.9 g/dL (3.9-5); Blood Urea Nitrogen 9 mg/dL (7-17); Calcium 9.8 mg/dL (8.4-10.2); Hemolysis Index 5
[2021-08-17 07:42] LABS: BUN/Creatinine Ratio 18
[2021-08-17 07:50] LABS: INR 0.92 (0.87-1.13)
[2021-08-17 07:51] LABS: Partial Thromboplastin Time 29.2 Sec. (24.2-36.6)
[2021-08-17] MEDS ORDERED: ACETAMINOPHEN 325 MG TAB PO PRN (08:23)
[2021-08-17] MEDS ORDERED: ONDANSETRON 4 MG/2 ML INJ IV PRN (08:23)
[2021-08-17] MEDS ORDERED: MORPHINE 2 MG/1 ML INJ IV PRN (08:23)
--- NOTE | 2021-08-17 08:43 | Progress Note ---
Hospitalist Physical - Constitutional Vitals: Temp Pulse Resp BP Pulse Ox 98.7 F 66 18 168/110 96 08/17/21 05:54 08/17/21 05:54 08/17/21 05:54 08/17/21 05:54 08/17/21 06:13 HEART Score - HEART Score Troponin: Troponin T < 0.010 ng/mL (0.00-0.029) 08/17/21 06:53 Results - Labs CBC & Chem 7: 08/17/21 06:53 08/17/21 06:53 Labs: Laboratory Last Values WBC 4.9 K/mm3 (4.5-11.0) 08/17/21 06:53 RBC 4.22 M/mm3 (3.65-5.03) 08/17/21 06:53 Hgb 12.0 gm/dl (10.1-14.3) 08/17/21 06:53 Hct 35.9 % (30.3-42.9) 08/17/21 06:53 MCV 85 fl (79-97) 08/17/21 06:53 MCH 29 pg (28-32) 08/17/21 06:53 MCHC 34 % (30-34) 08/17/21 06:53 RDW 14.3 % (13.2-15.2) 08/17/21 06:53 Plt Count 182 K/mm3 (140-440) 08/17/21 06:53 Lymph % (Auto) 24.6 % (13.4-35.0) 08/17/21 06:53 [place] % (Auto) 6.2 % (0.0-7.3) 08/17/21 06:53 Eos % (Auto) 2.9 % (0.0-4.3) 08/17/21 06:53 Baso % (Auto) 2.6 % (0.0-1.8) H 08/17/21 06:53 Lymph # (Auto) 1.2 K/mm3 (1.2-5.4) 08/17/21 06:53 [place] # (Auto) 0.3 K/mm3 (0.0-0.8) 08/17/21 06:53 Eos # (Auto) 0.1 K/mm3 (0.0-0.4) 08/17/21 06:53 Baso # (Auto) 0.1 K/mm3 (0.0-0.1) 08/17/21 06:53 Seg Neutrophils % 63.7 % (40.0-70.0) 08/17/21 06:53 Seg Neutrophils # 3.1 K/mm3 (1.8-7.7) 08/17/21 06:53 PT 13.4 Sec. (12.2-14.9) 08/17/21 06:53 INR 0.92 (0.87-1.13) 08/17/21 06:53 APTT 29.2 Sec. (24.2-36.6) 08/17/21 06:53 Thrombin Time 16.0 Sec. (15.1-19.6) 08/17/21 06:53 Sodium 135 mmol/L (137-145) L 08/17/21 06:53 Potassium 3.8 mmol/L (3.6-5.0) 08/17/21 06:53 Chloride 103.4 mmol/L (98-107) 08/17/21 06:53 Carbon Dioxide 27 mmol/L (22-30) 08/17/21 06:53 Anion Gap 8 mmol/L 08/17/21 06:53 BUN 9 mg/dL (7-17) 08/17/21 06:53 Creatinine 0.5 mg/dL (0.6-1.2) L 08/17/21 06:53 Estimated GFR > 60 ml/min 08/17/21 06:53 BUN/Creatinine Ratio 18 % 08/17/21 06:53 Glucose 113 mg/dL (65-100) H 08/17/21 06:53 Calcium 9.8 mg/dL (8.4-10.2) 08/17/21 06:53 Magnesium 2.10 mg/dL (1.7-2.3) 08/17/21 06:53 Total Bilirubin 0.40 mg/dL (0.1-1.2) 08/17/21 06:53 AST 19 units/L (5-40) 08/17/21 06:53 ALT 25 units/L (7-56) 08/17/21 06:53 Alkaline Phosphatase 82 units/L (35-129) 08/17/21 06:53 Total Creatine Kinase 65 units/L (30-135) 08/17/21 06:53 CK-MB (CK-2) 1.5 ng/mL (0.0-4.0) 08/17/21 06:53 CK-MB (CK-2) Rel Index 2.3 (0-4) 08/17/21 06:53 Troponin T < 0.010 ng/mL (0.00-0.029) 08/17/21 06:53 Total Protein 6.7 g/dL (6.3-8.2) 08/17/21 06:53 Albumin 3.9 g/dL (3.9-5) 08/17/21 06:53 Albumin/Globulin Ratio 1.4 % 08/17/21 06:53 HCG, Quant < 2 mIU/mL (0-4) 08/17/21 06:53 Plasma/Serum Alcohol < 0.01 % (0-0.07) 08/17/21 06:53 Active Medications - Current Medications Current Medications: Generic Name Dose Route Start Last Admin Trade Name Freq PRN Reason Stop Dose Admin Acetaminophen 650 mg 08/17/21 08:23 Acetaminophen 325 Mg Tab PO Q4H PRN Pain MILD(1-3)/Fever >100.5/SCHMIDT Morphine Sulfate 2 mg 08/17/21 08:23 Morphine 2 Mg/1 Ml Inj IV Q4H PRN Pain, Moderate (4-6) Ondansetron HCl 4 mg 08/17/21 08:23 Ondansetron 4 Mg/2 Ml Inj IV Q8H PRN Nausea And Vomiting Sodium Chloride 10 ml 08/17/21 10:00 Sodium Chloride 0.9% 10 Ml Flush Syringe IV BID ALVARO Sodium Chloride 10 ml 08/17/21 08:23 Sodium Chloride 0.9% 10 Ml Flush Syringe IV PRN PRN LINE FLUSH
--- NOTE | 2021-08-17 09:17 | Consultation ---
Medications and Allergies Allergies Allergy/AdvReac Type Severity Reaction Status Date / Time erythromycin base Allergy Anaphylaxis Verified 10/12/20 10:12 Latex, Natural Rubber Allergy Hives Verified 10/12/20 10:12 Home Medications Medication Instructions Recorded Confirmed Last Taken Type Folic Acid [Folvite] 10/12/20 Unknown History Gabapentin 10/12/20 Unknown History HCTZ 10/12/20 Unknown History PARoxetine [Paxil] 20 mg PO DAILY 10/12/20 10/12/20 Unknown History Topiramate [Topamax] 25 mg PO BID 10/12/20 10/12/20 Unknown History lisinopriL [Lisinopril] 20 mg PO 10/12/20 Unknown History Apixaban [Eliquis] 5 mg PO Q12H #60 10/21/20 Unknown Rx Ascorbic Acid [Vitamin C chew] 500 mg PO BID #60 tab.chew 10/21/20 Unknown Rx Aspirin EC [Halfprin EC] 81 mg PO QDAY #30 tablet. 10/21/20 Unknown Rx AtorvaSTATin [Lipitor] 40 mg PO QHS #30 tablet 10/21/20 Unknown Rx Cholecalciferol Vit D3 [Vitamin D3 1,000 unit PO QDAY #30 tablet 10/21/20 Unknown Rx 1,000 UNIT TAB] Zinc Sulfate [Zinc] 220 mg PO BID #60 tablet 10/21/20 Unknown Rx oxyCODONE /ACETAMINOPHEN [Percocet 1 tab PO Q12H PRN #10 tablet 10/21/20 Unknown Rx 5/325 mg] HYDROcodone/APAP 5-325 [[place] 1 - 2 each PO Q6HR PRN #7 tablet 04/12/21 Unknown Rx 5/325] Active Meds: Active Medications Acetaminophen (Acetaminophen 325 Mg Tab) 650 mg PO Q4H PRN PRN Reason: Pain MILD(1-3)/Fever >100.5/SCHMIDT Morphine Sulfate (Morphine 2 Mg/1 Ml Inj) 2 mg IV Q4H PRN PRN Reason: Pain, Moderate (4-6) Ondansetron HCl (Ondansetron 4 Mg/2 Ml Inj) 4 mg IV Q8H PRN PRN Reason: Nausea And Vomiting Sodium Chloride (Sodium Chloride 0.9% 10 Ml Flush Syringe) 10 ml IV BID ALVARO Sodium Chloride (Sodium Chloride 0.9% 10 Ml Flush Syringe) 10 ml IV PRN PRN PRN Reason: LINE FLUSH Physical Examination - Vital Signs Vital Signs: Vital Signs Temp Pulse Resp BP Pulse Ox 98.7 F 66 18 168/110 99 08/17/21 05:54 08/17/21 05:54 08/17/21 05:54 08/17/21 05:54 08/17/21 05:54 Results - Laboratory Findings CBC and BMP: 08/17/21 06:53 08/17/21 06:53 Abnormal Lab Findings: Abnormal Labs 08/17/21 08/17/21 06:53 06:53 Baso % (Auto) 2.6 H Sodium 135 L Creatinine 0.5 L Glucose 113 H Assessment and Plan [facility] Consult Note # Demographics Consult Type: Acute Stroke Level 2 (4.5-24 hrs) Patient Location: Emergency Room First Name: THOMAS Last Name: TAM Date of : 1970 Age: 50 Gender: Female Facility: [facility] Time of Initial Page (Eastern Time): 08/17/2021, 06:43 Time of Return Call (Eastern Time): 08/17/2021, 06:44 # HPI History: 50F with prior strokes and left weakness baseline. On eliquis reportedly. To bed 02:30 ok, then woke unsteady and feeling she could fall. # PMH-FH-SH Past Medical History: migraine Medications: NOAC Topamax # Data Head CT: no bleed per radiologist read # Assessment Impression: Transient Ischemic Attack vs mimic. # Plan Thrombolytic/Intervention: NOT IV Thrombolysis or IA Intervention candidate Thrombolytic Exclusion (< 3 hour window): actively on NOAC Intraarterial Exclusion: non-disabling Imaging: (urgency: routine): MRI Brain without contrast Other: telemetry monitoring would not pursue stroke work-up if MRI is negative I have discussed my recommendations with the referring provider Additional Recommendations: Orthostatic BP Disposition: admit # Logistics Telemedicine: phone only
--- NOTE | 2021-08-17 15:46 | History and Physical Report ---
History of Present Illness Date of examination: 08/17/21 Date of admission: 08/17/21 08:23 History of present illness: Patient is a 50-year-old woman with history of hypertension, hyperlipidemia, multiple CVAs with residual left-sided deficits, atrial fibrillation on Eliquis and migraines who presented to the emergency department with complaints of weakness. She woke up around 4 AM this morning to go to the bathroom, when she noticed that she felt "disoriented" and unsteady while walking. She denies visual changes, slurred speech, syncope, fall, and numbness and weakness. She reports a dull intermittent headache for the last 3 days. She has a history of migraines which she normally treats with Tylenol and rest. She reports her headaches being similar to her migraines and they improved with naps. CT of the head without showed no acute abnormalities. Teleneurology was consult ed in ED. Patient was admitted for CVA rule out. Past History Past Medical History: hypertension, hyperlipidemia, stroke Past Surgical History: No surgical history Social history: no significant social history Family history: no significant family history Medications and Allergies Allergies Allergy/AdvReac Type Severity Reaction Status Date / Time erythromycin base Allergy Shortness Verified 08/18/21 12:45 of Breath Latex, Natural Rubber Allergy Hives Verified 08/18/21 12:45 Home Medications Medication Instructions Recorded Confirmed Last Taken Type PARoxetine [Paxil] 20 mg PO DAILY 10/12/20 08/17/21 1 Day Ago History ~08/16/21 lisinopriL [Lisinopril] 20 mg PO DAILY 10/12/20 08/17/21 08/16/21 History AtorvaSTATin [Lipitor] 40 mg PO QHS #30 tablet 10/21/20 08/18/21 Unknown Rx Cholecalciferol Vit D3 [Vitamin D3 1,000 unit PO QDAY #30 tablet 10/21/20 08/18/21 1 Day Ago Rx 1,000 UNIT TAB] ~08/16/21 Apixaban [Eliquis] 5 mg PO Q12H #60 08/18/21 Unknown Rx Ascorbic Acid [Vitamin C] 1,000 mg PO QDAY 08/18/21 08/18/21 Unknown History Aspirin EC [Halfprin EC] 81 mg PO QDAY #30 tablet. 08/18/21 Unknown Rx Folic Acid [Folvite] 1 mg PO QDAY 08/18/21 08/18/21 Unknown History Gabapentin 300 mg PO BID 08/18/21 08/18/21 Unknown History Topiramate [Topamax] 25 mg PO Q12HR #60 tablet 08/18/21 Unknown Rx hydroCHLOROthiazide [HCTZ] 25 mg PO QDAY 08/18/21 08/18/21 Unknown History hydroCHLOROthiazide [HCTZ] 25 mg PO QDAY #30 tablet 08/18/21 Unknown Rx lisinopriL [Zestril TAB] 20 mg PO DAILY #30 tablet 08/18/21 Unknown Rx Active Meds: Active Medications Acetaminophen (Acetaminophen 325 Mg Tab) 650 mg PO Q4H PRN PRN Reason: Pain MILD(1-3)/Fever >100.5/SCHMIDT Morphine Sulfate (Morphine 2 Mg/1 Ml Inj) 2 mg IV Q4H PRN PRN Reason: Pain, Moderate (4-6) Ondansetron HCl (Ondansetron 4 Mg/2 Ml Inj) 4 mg IV Q8H PRN PRN Reason: Nausea And Vomiting Sodium Chloride (Sodium Chloride 0.9% 10 Ml Flush Syringe) 10 ml IV BID ALVARO Sodium Chloride (Sodium Chloride 0.9% 10 Ml Flush Syringe) 10 ml IV PRN PRN PRN Reason: LINE FLUSH Review of Systems All systems: negative Ears, nose, mouth and throat: deferred Breasts: deferred Cardiovascular: no chest pain, no palpitations, no rapid/irregular heart beat, no edema, no lightheadedness Respiratory: no cough, no cough with sputum, no shortness of breath, no wheezing Gastrointestinal: no abdominal pain, no nausea, no vomiting, no diarrhea, no change in bowel habits Musculoskeletal: no neck stiffness, no neck pain, no shooting arm pain, no arm numbness/tingling, no low back pain, no shooting leg pain, no frequent falls Integumentary: deferred Neurological: weakness, migraines, change in mentation, gait dysfunction, no head injury, no paralysis, no parathesias, no numbness, no tingling, no syncope, no change in speech Endocrine: no cold intolerance, no heat intolerance, no excessive thirst, no romy ydipsia, no polyuria Hematologic/Lymphatic: no easy bleeding Exam - Physical Exam Narrative exam: GENERAL: Well-developed well-nourished. In no acute distress. HEENT: Normocephalic. Atraumatic. NECK: Supple. CHEST/LUNGS: CTAB on room air HEART/CARDIOVASCULAR: RRR. No murmur, rubs or gallops appreciated. ABDOMEN: +BS. NT/ND. SKIN: No rashes noted. NEURO: Decreased strength of L upper and lower extremity. Follows all commands. MUSCULOSKELETAL: No joint effusion EXTREMITIES: No cyanosis, clubbing or edema. PSYCH: Cooperative. - Constitutional Vitals: Temp Pulse Resp BP Pulse Ox 98.7 F 61 17 126/73 96 08/17/21 05:54 08/17/21 12:01 08/17/21 12:01 08/17/21 12:01 08/17/21 12:01 HEART Score - HEART Score Troponin: Troponin T < 0.010 ng/mL (0.00-0.029) 08/17/21 06:53 Results - Labs CBC & Chem 7: 08/17/21 06:53 08/17/21 06:53 Labs: Laboratory Last Values WBC 4.9 K/mm3 (4.5-11.0) 08/17/21 06:53 RBC 4.22 M/mm3 (3.65-5.03) 08/17/21 06:53 Hgb 12.0 gm/dl (10.1-14.3) 08/17/21 06:53 Hct 35.9 % (30.3-42.9) 08/17/21 06:53 MCV 85 fl (79-97) 08/17/21 06:53 MCH 29 pg (28-32) 08/17/21 06:53 MCHC 34 % (30-34) 08/17/21 06:53 RDW 14.3 % (13.2-15.2) 08/17/21 06:53 Plt Count 182 K/mm3 (140-440) 08/17/21 06:53 Lymph % (Auto) 24.6 % (13.4-35.0) 08/17/21 06:53 [place] % (Auto) 6.2 % (0.0-7.3) 08/17/21 06:53 Eos % (Auto) 2.9 % (0.0-4.3) 08/17/21 06:53 Baso % (Auto) 2.6 % (0.0-1.8) H 08/17/21 06:53 Lymph # (Auto) 1.2 K/mm3 (1.2-5.4) 08/17/21 06:53 [place] # (Auto) 0.3 K/mm3 (0.0-0.8) 08/17/21 06:53 Eos # (Auto) 0.1 K/mm3 (0.0-0.4) 08/17/21 06:53 Baso # (Auto) 0.1 K/mm3 (0.0-0.1) 08/17/21 06:53 Seg Neutrophils % 63.7 % (40.0-70.0) 08/17/21 06:53 Seg Neutrophils # 3.1 K/mm3 (1.8-7.7) 08/17/21 06:53 PT 13.4 Sec. (12.2-14.9) 08/17/21 06:53 INR 0.92 (0.87-1.13) 08/17/21 06:53 APTT 29.2 Sec. (24.2-36.6) 08/17/21 06:53 Thrombin Time 16.0 Sec. (15.1-19.6) 08/17/21 06:53 Sodium 135 mmol/L (137-145) L 08/17/21 06:53 Potassium 3.8 mmol/L (3.6-5.0) 08/17/21 06:53 Chloride 103.4 mmol/L (98-107) 08/17/21 06:53 Carbon Dioxide 27 mmol/L (22-30) 08/17/21 06:53 Anion Gap 8 mmol/L 08/17/21 06:53 BUN 9 mg/dL (7-17) 08/17/21 06:53 Creatinine 0.5 mg/dL (0.6-1.2) L 08/17/21 06:53 Estimated GFR > 60 ml/min 08/17/21 06:53 BUN/Creatinine Ratio 18 % 08/17/21 06:53 Glucose 113 mg/dL (65-100) H 08/17/21 06:53 Calcium 9.8 mg/dL (8.4-10.2) 08/17/21 06:53 Magnesium 2.10 mg/dL (1.7-2.3) 08/17/21 06:53 Total Bilirubin 0.40 mg/dL (0.1-1.2) 08/17/21 06:53 AST 19 units/L (5-40) 08/17/21 06:53 ALT 25 units/L (7-56) 08/17/21 06:53 Alkaline Phosphatase 82 units/L (35-129) 08/17/21 06:53 Total Creatine Kinase 65 units/L (30-135) 08/17/21 06:53 CK-MB (CK-2) 1.5 ng/mL (0.0-4.0) 08/17/21 06:53 CK-MB (CK-2) Rel Index 2.3 (0-4) 08/17/21 06:53 Troponin T < 0.010 ng/mL (0.00-0.029) 08/17/21 06:53 Total Protein 6.7 g/dL (6.3-8.2) 08/17/21 06:53 Albumin 3.9 g/dL (3.9-5) 08/17/21 06:53 Albumin/Globulin Ratio 1.4 % 08/17/21 06:53 HCG, Quant < 2 mIU/mL (0-4) 08/17/21 06:53 Plasma/Serum Alcohol < 0.01 % (0-0.07) 08/17/21 06:53 - Imaging and Cardiology CT Scan - head: report reviewed, image reviewed MRI - head: pending Chaney/IV: Voiding Method Toilet Assessment and Plan Assessment and plan: Patient is a 50 YOF with a history of multiple CVAs w/ residual L sided weakness, HTN, and migraines who presented to the ED after waking up around 4am this morning with unsteady gait and disorientation. Admitted for CVA rule out. Patient currently stable. #CVA rule out #history of CVA w/ L sided deficits -patient has had several strokes in the past -Patient not taking aspirin or atorvastatin and her PCP is aware. Patient counseled about importance of taking taking his medications due to high risk of stroke given previous history of history. -CT head negative -will restart aspirin, patient declined restarting statin due to hx of pre- diabetes -Teleneurology consulted in ED, Report reviewed, will continue with MRI of head w/o contrast, if negative will not continue further CVA work up -PT evaluation ordered #History of atrial fibrillation on Eliquis -Rate currently controlled without beta-blocking agent -We will continue Eliquis 5 mg twice daily #Hypertension -Initial blood pressure 168/110 -will restart lisinopril #History of migraines-stable -Patient no longer takes Topamax -As needed Tylenol preferred #Advanced care planning -Disease education conducted, care plan discussed, diagnoses discussed, prognosis discussed, and patient acknowledges understanding with care plan -Time: +30 min Advance Directives: No VTE prophylaxis?: Not ordered Contraindication Mechanical VTE Prophylaxis: Treatment Not Indicated Reason for no VTE Prophylaxis: Medical contraindication Plan of care discussed with patient/family: Yes
[2021-08-17] MEDS ORDERED: NON-FORMULARY EACH (Apixaban 5 MG Tablet) PO SCH (16:15)
[2021-08-17] MEDS: APIXABAN 5 MG TAB PO SCH (17:37)
[2021-08-17] MEDS: LISINOPRIL 20 MG TAB PO SCH (17:47)
--- NOTE | 2021-08-18 09:16 | Magnetic Resonance Report ---
NONENHANCED MR SCAN OF THE BRAIN: INDICATION / CLINICAL INFORMATION: stroke rule out, LT SIDED WEAKNES. TECHNIQUE: Multiplanar, multisequence MR images of the brain obtained. COMPARISON: CT scan of the head from 08/17/2021 FINDINGS: BRAIN / INTRACRANIAL CONTENTS: No acute ischemia, acute hemorrhage, mass effect, midline shift, or hy drocephalus. No chronic infarct or atrophy. Scattered white matter lesions, nonspecific, if there is history of hypertension, could be from chronic small vessel disease. Pedicle sulci normal CRANIOCERVICAL JUNCTION: No significant abnormality. VASCULAR FLOW-VOIDS: No significant abnormality. ORBITS: No significant abnormality of visualized orbits. SINUSES / MASTOIDS: No significant abnormality of visualized sinuses and mastoid air cells. ADDITIONAL FINDINGS: None. IMPRESSION: No acute focal parenchymal lesion in the brain Signer Name: Cassy Serrano MD Signed: 08/18/2021 9:12 AM Workstation Name: [id number]
--- NOTE | 2021-08-18 09:53 | Progress Note ---
Assessment and Plan Assessment and plan: Patient is a 50 YOF with a history of multiple CVAs w/ residual L sided weakness, HTN, and migraines who presented to the ED after waking up around 4am this morning with unsteady gait and disorientation. Admitted for CVA rule out. Patient currently stable. #CVA rule out #history of CVA w/ L sided deficits -patient has had several strokes in the past -Patient not taking aspirin or atorvastatin and her PCP is aware. Patient counseled about importance of taking taking his medications due to high risk of stroke given previous history of history. -CT head negative -will restart aspirin, patient declined restarting statin due to hx of pre- diabetes -Teleneurology consulted in ED, Report reviewed, will continue with MRI of head w/o contrast, if negative will not continue further CVA work up -PT evaluation ordered #History of atrial fibrillation on Eliquis -Rate currently controlled without beta-blocking agent -We will continue Eliquis 5 mg twice daily #Hypertension -Initial blood pressure 168/110 -will restart lisinopril #History of migraines-stable -Patient no longer takes Topamax -As needed Tylenol preferred #Advanced care planning -Disease education conducted, care plan discussed, diagnoses discussed, prognosis discussed, and patient acknowledges understanding with care plan -Time: +30 min Advance Directives: No VTE prophylaxis?: Not ordered Contraindication Mechanical VTE Prophylaxis: Treatment Not Indicated Reason for no VTE Prophylaxis: Medical contraindication Plan of care discussed with patient/family: Yes Hospitalist Physical - Constitutional Vitals: Temp Pulse Resp BP Pulse Ox 98.5 F 60 16 133/73 99 08/18/21 03:41 08/18/21 03:41 08/18/21 03:41 08/18/21 03:41 08/18/21 08:09 HEART Score - HEART Score Troponin: Troponin T < 0.010 ng/mL (0.00-0.029) 08/17/21 06:53 Results - Labs CBC & Chem 7: 08/17/21 06:53 08/17/21 06:53 Labs: Laboratory Last Values WBC 4.9 K/mm3 (4.5-11.0) 08/17/21 06:53 RBC 4.22 M/mm3 (3.65-5.03) 08/17/21 06:53 Hgb 12.0 gm/dl (10.1-14.3) 08/17/21 06:53 Hct 35.9 % (30.3-42.9) 08/17/21 06:53 MCV 85 fl (79-97) 08/17/21 06:53 MCH 29 pg (28-32) 08/17/21 06:53 MCHC 34 % (30-34) 08/17/21 06:53 RDW 14.3 % (13.2-15.2) 08/17/21 06:53 Plt Count 182 K/mm3 (140-440) 08/17/21 06:53 Lymph % (Auto) 24.6 % (13.4-35.0) 08/17/21 06:53 [place] % (Auto) 6.2 % (0.0-7.3) 08/17/21 06:53 Eos % (Auto) 2.9 % (0.0-4.3) 08/17/21 06:53 Baso % (Auto) 2.6 % (0.0-1.8) H 08/17/21 06:53 Lymph # (Auto) 1.2 K/mm3 (1.2-5.4) 08/17/21 06:53 [place] # (Auto) 0.3 K/mm3 (0.0-0.8) 08/17/21 06:53 Eos # (Auto) 0.1 K/mm3 (0.0-0.4) 08/17/21 06:53 Baso # (Auto) 0.1 K/mm3 (0.0-0.1) 08/17/21 06:53 Seg Neutrophils % 63.7 % (40.0-70.0) 08/17/21 06:53 Seg Neutrophils # 3.1 K/mm3 (1.8-7.7) 08/17/21 06:53 PT 13.4 Sec. (12.2-14.9) 08/17/21 06:53 INR 0.92 (0.87-1.13) 08/17/21 06:53 APTT 29.2 Sec. (24.2-36.6) 08/17/21 06:53 Thrombin Time 16.0 Sec. (15.1-19.6) 08/17/21 06:53 Sodium 135 mmol/L (137-145) L 08/17/21 06:53 Potassium 3.8 mmol/L (3.6-5.0) 08/17/21 06:53 Chloride 103.4 mmol/L (98-107) 08/17/21 06:53 Carbon Dioxide 27 mmol/L (22-30) 08/17/21 06:53 Anion Gap 8 mmol/L 08/17/21 06:53 BUN 9 mg/dL (7-17) 08/17/21 06:53 Creatinine 0.5 mg/dL (0.6-1.2) L 08/17/21 06:53 Estimated GFR > 60 ml/min 08/17/21 06:53 BUN/Creatinine Ratio 18 % 08/17/21 06:53 Glucose 113 mg/dL (65-100) H 08/17/21 06:53 Calcium 9.8 mg/dL (8.4-10.2) 08/17/21 06:53 Magnesium 2.10 mg/dL (1.7-2.3) 08/17/21 06:53 Total Bilirubin 0.40 mg/dL (0.1-1.2) 08/17/21 06:53 AST 19 units/L (5-40) 08/17/21 06:53 ALT 25 units/L (7-56) 08/17/21 06:53 Alkaline Phosphatase 82 units/L (35-129) 08/17/21 06:53 Total Creatine Kinase 65 units/L (30-135) 08/17/21 06:53 CK-MB (CK-2) 1.5 ng/mL (0.0-4.0) 08/17/21 06:53 CK-MB (CK-2) Rel Index 2.3 (0-4) 08/17/21 06:53 Troponin T < 0.010 ng/mL (0.00-0.029) 08/17/21 06:53 Total Protein 6.7 g/dL (6.3-8.2) 08/17/21 06:53 Albumin 3.9 g/dL (3.9-5) 08/17/21 06:53 Albumin/Globulin Ratio 1.4 % 08/17/21 06:53 HCG, Quant < 2 mIU/mL (0-4) 08/17/21 06:53 Plasma/Serum Alcohol < 0.01 % (0-0.07) 08/17/21 06:53 Chaney/IV: Voiding Method Toilet Active Medications - Current Medications Current Medications: Generic Name Dose Route Start Last Admin Trade Name Freq PRN Reason Stop Dose Admin Acetaminophen 650 mg 08/17/21 08:23 Acetaminophen 325 Mg Tab PO Q4H PRN Pain MILD(1-3)/Fever >100.5/SCHMIDT Apixaban 5 mg 08/17/21 17:00 08/17/21 17:37 Apixaban 5 Mg Tab PO 5 mg Q12HR ALVARO Administration Protocol Aspirin 81 mg 08/18/21 10:00 Aspirin Ec 81 Mg Tab PO QDAY LAVARO Lisinopril 20 mg 08/17/21 17:00 08/17/21 17:47 Lisinopril 20 Mg Tab PO 20 mg DAILY ALVARO Administration Morphine Sulfate 2 mg 08/17/21 08:23 Morphine 2 Mg/1 Ml Inj IV Q4H PRN Pain, Moderate (4-6) Ondansetron HCl 4 mg 08/17/21 08:23 Ondansetron 4 Mg/2 Ml Inj IV Q8H PRN Nausea And Vomiting Paroxetine HCl 20 mg 08/18/21 10:00 Paroxetine 20 Mg Tab PO DAILY ALVARO Sodium Chloride 10 ml 08/17/21 10:00 08/17/21 21:19 Sodium Chloride 0.9% 10 Ml Flush Syringe IV 10 ml BID ALVARO Administration Sodium Chloride 10 ml 08/17/21 08:23 Sodium Chloride 0.9% 10 Ml Flush Syringe IV PRN PRN LINE FLUSH
[2021-08-18] MEDS ORDERED: PARoxetine 20 MG TAB PO SCH (10:00)
[2021-08-18] MEDS ORDERED: ASPIRIN EC 81 MG TAB PO SCH (10:00)
[2021-08-18] MEDS: APIXABAN 5 MG TAB PO SCH (10:13)
[2021-08-18] MEDS: LISINOPRIL 20 MG TAB PO SCH (10:13)
[2021-08-18] MEDS ORDERED: hydroCHLOROthiazide 25 MG TAB PO SCH (12:00)
[2021-08-18] MEDS ORDERED: GABAPENTIN 300 MG CAP PO SCH (12:00)
[2021-08-18] MEDS ORDERED: TOPIRAMATE TAB 25 MG TAB PO SCH (12:00)
[2021-08-18 12:11] VITALS: BP 133/81
--- NOTE | 2021-08-18 12:35 | Progress Note ---
Assessment and Plan Assessment and plan: Patient is a 50 YOF with a history of multiple CVAs w/ residual L sided weakness, HTN, and migraines who presented to the ED after waking up around 4am this morning with unsteady gait and disorientation. Admitted for CVA rule out. Patient currently stable. #CVA rule out #history of CVA w/ L sided deficits -patient has had several strokes in the past -Patient not taking aspirin or atorvastatin and her PCP is aware. Patient counseled about importance of taking taking his medications due to high risk of stroke given previous history of history. -CT head negative -will restart aspirin, patient declined restarting statin due to hx of pre- diabetes -Teleneurology consulted in ED, Report reviewed, will continue with MRI of head w/o contrast, if negative will not continue further CVA work up -PT evaluation ordered #History of atrial fibrillation on Eliquis -Rate currently controlled without beta-blocking agent -We will continue Eliquis 5 mg twice daily #Hypertension -Initial blood pressure 168/110 -will restart lisinopril #History of migraines-stable -Patient no longer takes Topamax -As needed Tylenol preferred #Advanced care planning -Disease education conducted, care plan discussed, diagnoses discussed, prognosis discussed, and patient acknowledges understanding with care plan -Time: +30 min Hospitalist Physical - Constitutional Vitals: Temp Pulse Resp BP Pulse Ox 97.7 F 73 18 133/81 99 08/18/21 12:11 08/18/21 12:06 08/18/21 12:06 08/18/21 12:06 08/18/21 12:06 HEART Score - HEART Score Troponin: Troponin T < 0.010 ng/mL (0.00-0.029) 08/17/21 06:53 Results - Labs CBC & Chem 7: 08/17/21 06:53 08/17/21 06:53 Labs: Laboratory Last Values WBC 4.9 K/mm3 (4.5-11.0) 08/17/21 06:53 RBC 4.22 M/mm3 (3.65-5.03) 08/17/21 06:53 Hgb 12.0 gm/dl (10.1-14.3) 08/17/21 06:53 Hct 35.9 % (30.3-42.9) 08/17/21 06:53 MCV 85 fl (79-97) 08/17/21 06:53 MCH 29 pg (28-32) 08/17/21 06:53 MCHC 34 % (30-34) 08/17/21 06:53 RDW 14.3 % (13.2-15.2) 08/17/21 06:53 Plt Count 182 K/mm3 (140-440) 08/17/21 06:53 Lymph % (Auto) 24.6 % (13.4-35.0) 08/17/21 06:53 [place] % (Auto) 6.2 % (0.0-7.3) 08/17/21 06:53 Eos % (Auto) 2.9 % (0.0-4.3) 08/17/21 06:53 Baso % (Auto) 2.6 % (0.0-1.8) H 08/17/21 06:53 Lymph # (Auto) 1.2 K/mm3 (1.2-5.4) 08/17/21 06:53 [place] # (Auto) 0.3 K/mm3 (0.0-0.8) 08/17/21 06:53 Eos # (Auto) 0.1 K/mm3 (0.0-0.4) 08/17/21 06:53 Baso # (Auto) 0.1 K/mm3 (0.0-0.1) 08/17/21 06:53 Seg Neutrophils % 63.7 % (40.0-70.0) 08/17/21 06:53 Seg Neutrophils # 3.1 K/mm3 (1.8-7.7) 08/17/21 06:53 PT 13.4 Sec. (12.2-14.9) 08/17/21 06:53 INR 0.92 (0.87-1.13) 08/17/21 06:53 APTT 29.2 Sec. (24.2-36.6) 08/17/21 06:53 Thrombin Time 16.0 Sec. (15.1-19.6) 08/17/21 06:53 Sodium 135 mmol/L (137-145) L 08/17/21 06:53 Potassium 3.8 mmol/L (3.6-5.0) 08/17/21 06:53 Chloride 103.4 mmol/L (98-107) 08/17/21 06:53 Carbon Dioxide 27 mmol/L (22-30) 08/17/21 06:53 Anion Gap 8 mmol/L 08/17/21 06:53 BUN 9 mg/dL (7-17) 08/17/21 06:53 Creatinine 0.5 mg/dL (0.6-1.2) L 08/17/21 06:53 Estimated GFR > 60 ml/min 08/17/21 06:53 BUN/Creatinine Ratio 18 % 08/17/21 06:53 Glucose 113 mg/dL (65-100) H 08/17/21 06:53 Calcium 9.8 mg/dL (8.4-10.2) 08/17/21 06:53 Magnesium 2.10 mg/dL (1.7-2.3) 08/17/21 06:53 Total Bilirubin 0.40 mg/dL (0.1-1.2) 08/17/21 06:53 AST 19 units/L (5-40) 08/17/21 06:53 ALT 25 units/L (7-56) 08/17/21 06:53 Alkaline Phosphatase 82 units/L (35-129) 08/17/21 06:53 Total Creatine Kinase 65 units/L (30-135) 08/17/21 06:53 CK-MB (CK-2) 1.5 ng/mL (0.0-4.0) 08/17/21 06:53 CK-MB (CK-2) Rel Index 2.3 (0-4) 08/17/21 06:53 Troponin T < 0.010 ng/mL (0.00-0.029) 08/17/21 06:53 Total Protein 6.7 g/dL (6.3-8.2) 08/17/21 06:53 Albumin 3.9 g/dL (3.9-5) 08/17/21 06:53 Albumin/Globulin Ratio 1.4 % 08/17/21 06:53 HCG, Quant < 2 mIU/mL (0-4) 08/17/21 06:53 Plasma/Serum Alcohol < 0.01 % (0-0.07) 08/17/21 06:53 Chaney/IV: Voiding Method Toilet Active Medications - Current Medications Current Medications: Generic Name Dose Route Start Last Admin Trade Name Freq PRN Reason Stop Dose Admin Acetaminophen 650 mg 08/17/21 08:23 Acetaminophen 325 Mg Tab PO Q4H PRN Pain MILD(1-3)/Fever >100.5/SCHMIDT Apixaban 5 mg 08/17/21 17:00 08/18/21 10:13 Apixaban 5 Mg Tab PO 5 mg Q12HR ALVARO Administration Protocol Aspirin 81 mg 08/18/21 10:00 08/18/21 11:17 Aspirin Ec 81 Mg Tab PO Not Given QDAY ALVARO Atorvastatin Calcium 40 mg 08/18/21 22:00 Atorvastatin 40 Mg Tab PO QHS ALVARO Gabapentin 300 mg 08/18/21 12:00 08/18/21 12:07 Gabapentin 300 Mg Cap PO 300 mg BID ALVARO Administration Hydrochlorothiazide 25 mg 08/18/21 12:00 08/18/21 12:08 Hydrochlorothiazide 25 Mg Tab PO 25 mg QDAY ALVARO Administration Lisinopril 20 mg 08/17/21 17:00 08/18/21 10:13 Lisinopril 20 Mg Tab PO 20 mg DAILY ALVARO Administration Morphine Sulfate 2 mg 08/17/21 08:23 Morphine 2 Mg/1 Ml Inj IV Q4H PRN Pain, Moderate (4-6) Ondansetron HCl 4 mg 08/17/21 08:23 Ondansetron 4 Mg/2 Ml Inj IV Q8H PRN Nausea And Vomiting Paroxetine HCl 20 mg 08/18/21 10:00 08/18/21 10:13 Paroxetine 20 Mg Tab PO 20 mg DAILY ALVARO Administration Sodium Chloride 10 ml 08/17/21 10:00 08/18/21 11:17 Sodium Chloride 0.9% 10 Ml Flush Syringe IV Not Given BID ALVARO Sodium Chloride 10 ml 08/17/21 08:23 08/18/21 10:21 Sodium Chloride 0.9% 10 Ml Flush Syringe IV 10 ml PRN PRN Administration LINE FLUSH Topiramate 25 mg 08/18/21 12:00 08/18/21 12:08 Topiramate Tab 25 Mg Tab PO 25 mg Q12HR ALVARO Administration
--- NOTE | 2021-08-18 12:37 | Discharge Summary ---
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 Admitted for CVA rule out. Patient currently stable. #CVA rule out #history of CVA w/ L sided deficits patient has had several strokes in the past Patient not taking aspirin or atorvastatin and her PCP is aware. Patient counseled about importance of taking taking his medications due to high risk of stroke given previous history of history. CT head negative will restart aspirin, patient declined restarting statin due to hx of pre- diabetes Teleneurology consulted in ED, Report reviewed, will continue with MRI of head w/o contrast, if negative will not continue further CVA work up -PT evaluation ordered #History of atrial fibrillation on Eliquis -Rate currently controlled without beta-blocking agent -We will continue Eliquis 5 mg twice daily #Hypertension -Initial blood pressure 168/110 -will restart lisinopril #History of migraines-stable -Patient no longer takes Topamax -As needed Tylenol preferred #Obesity ; BMI 35.5 EVidal MatamorosLuli please give her a small Luli please level #Advanced care planning Disease education conducted, care plan discussed, diagnoses discussed, prognosis discussed, and patient acknowledges understanding with care plan -Time: +30 min Final Discharge Diagnosis (Prints w/discharge instructions): Acute CVA ruled out. History of CVA with residual left-sided deficits. History of atrial fibrillation on Eliquis. Hypertension. History of migraine headaches. Obesity BMI 35.5 Time spent for discharge: 35 min Core Measure Documentation - Palliative Care Palliative Care/ Comfort Measures: Not Applicable - Core Measures Any of the following diagnoses?: none Exam - Constitutional Vitals: Temp Pulse Resp BP Pulse Ox 97.7 F 73 18 133/81 99 08/18/21 12:11 08/18/21 12:06 08/18/21 12:06 08/18/21 12:06 08/18/21 12:06 General appearance: Present: no acute distress, well-nourished - EENT Eyes: Present: PERRL, EOM intact - Neck Neck: Present: supple, normal ROM - Respiratory Respiratory effort: normal Respiratory: bilateral: diminished, negative: rales, rhonchi, wheezing - Cardiovascular Rhythm: regular Heart Sounds: Present: S1 & S2 - Extremities Extremities: no ischemia, No edema - Abdominal General gastrointestinal: Present: soft, non-tender, non-distended, normal bowel sounds - Integumentary Integumentary: Present: clear, warm - Musculoskeletal Musculoskeletal: strength equal bilaterally, generalized weakness - Psychiatric Psychiatric: appropriate mood/affect, cooperative - Neurologic Neurologic: moves all extremities Plan Activity: advance as tolerated, fall precautions Diet: other (Cardiac diet) Additional Instructions: If you have worsening symptoms contact MD or go to the nearest emergency room as needed. Advised to see primary care physician in 1 week advised to see private neurologist in 1 to 2 weeks or as needed. Advised diet modification exercise as tolerated and weight reduction when you are stable. Patient refused PT, ambulated in the room and in the hallway with a cane Follow up with: PRIMARY CARE, [Primary Care Provider] - 3-5 Days ALMA WU MD [Staff Physician] - 7 Days Prescriptions: Apixaban [Eliquis] 5 mg PO Q12H #60 Aspirin EC [Halfprin EC] 81 mg PO QDAY #30 tablet. hydroCHLOROthiazide [HCTZ] 25 mg PO QDAY #30 tablet Topiramate [Topamax] 25 mg PO Q12HR #60 tablet lisinopriL [Zestril TAB] 20 mg PO DAILY #30 tablet
--- NOTE | 2021-08-18 13:42 | Electrocardiograph Report ---
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
== END 2021-08-18 16:19 | disposition home or self-care (01) ==
LOC: ED 05:41 → INTOOBSV 08:23 → 4A 08:23
PROVIDERS: ADMIT Student in an Organized Health Care Education/Training Program; ATTEND Internal Medicine
DX: R53.1 Weakness (principal); I48.91 Unspecified atrial fibrillation; G43.909 Migraine, unspecified, not intractable, without status migrainosus; I10 Essential (primary) hypertension; E78.5 Hyperlipidemia, unspecified; G45.9 Transient cerebral ischemic attack, unspecified; I63.9 Cerebral infarction, unspecified; R29.818 Other symptoms and signs involving the nervous system; E66.9 Obesity, unspecified; D64.9 Anemia, unspecified; R29.704 NIHSS score 4; Z79.01 Long term (current) use of anticoagulants; Z86.73 Personal history of transient ischemic attack (TIA), and cerebral infarction without residual deficits; Z79.899 Other long term (current) drug therapy; Z98.890 Other specified postprocedural states; Z79.82 Long term (current) use of aspirin; Z90.710 Acquired absence of both cervix and uterus; Z68.35 Body mass index [BMI] 35.0-35.9, adult
CPT/HCPCS: 36415; 70450; 70551; 80053; 82550; 82553; 83735; 84484; 84702; 85025; 85610; 85670; 85730; 93005; 96374; 96375; 99285; G0378; J1200; J2765; 80320; G0480